=== PATIENT | male | born 1940 | race Caucasian/White ===

== ENCOUNTER 2018-05-02 16:11 | Inpatient (IN) ==
[2018-05-02] MEDS ORDERED: Sod Chloride 0.9% Inj 1,000 ML IV.SIG ONE (17:10)
--- NOTE | 2018-05-02 17:15 | ED ---
HPI General Chief complaint: Weakness Stated complaint: Diarrhea/weakness x 5 days Source: patient and family Mode of arrival: ambulatory Limitations: no limitations History of Present Illness HPI Narrative: 78-year-old man brought in for 2 weeks of increasing generalized weakness and fatigue. He had a dental extraction procedure performed about 2 weeks ago and has not recovered well since that time. Prior to the dental extractions, he was on amoxicillin for 7 days. He also has had loose stools about 3 times a day each day over the course of these 2 weeks. He was previously capable of independent ambulation but has required the use of a cane and now more recently a walker to get around due to the weakness. He denies any falls and has not had a syncopal event. Related Data Home Medications Medication Instructions Recorded Confirmed amiodarone 200 mg PO BID 05/02/18 05/02/18 aspirin [Aspir-Low] 81 mg PO DAILY 05/02/18 05/02/18 atorvastatin 80 mg PO HS 05/02/18 05/02/18 buspirone 10 mg PO BID 05/02/18 05/02/18 clopidogrel 75 mg PO DAILY 05/02/18 05/02/18 ipratropium-albuterol 3 ml INHALATION Q6-8H PRN 05/02/18 05/02/18 levothyroxine 25 mcg PO DAILY 05/02/18 05/02/18 losartan 100 mg PO HS 05/02/18 05/02/18 metoprolol tartrate 25 mg PO DAILY 05/02/18 05/02/18 Allergies Allergy/AdvReac Type Severity Reaction Status Date / Time codeine Allergy Intermediate Hallucinati Verified 05/02/18 18:56 ons anesthetic Allergy Severe Hallucinati Uncoded 05/02/18 18:56 ons Review of Systems ROS: all other systems reviewed are negative [facility] Medical History Medical History COPD (chronic obstructive pulmonary disease) (Acute) High cholesterol (Acute) Hypertension (Acute) Hypothyroid (Acute) Presence of combination internal cardiac defibrillator (ICD) and pacemaker ( Acute) Social History Social History Smoking Status: Never smoker How Often Do You Have a Drink Containing Alcohol: Never Recent Travel in [facility] within the Last 8 Weeks: No Recent Out of Country Travel within the Last 8 Weeks: No Immunization History Tetanus Immunization: Unsure Hx Influenza Vaccine This Season: Yes Exam Narrative Exam Narrative: GENERAL: Chronically ill-appearing but nontoxic 78-year-old man lying on exam stretcher. His adult daughter seated in chair at bedside. SKIN: Focused skin assessment warm/dry. No skin lesions or rash observed. No decubitus ulcer observed. HEAD: Atraumatic. Normocephalic. EYES: Pupils equal and round. No scleral icterus. No injection or drainage. ENT: No nasal bleeding or discharge. Mucous membranes pink and dry. Edentulous. NECK: Trachea midline. No JVD. CARDIOVASCULAR: Regular rate and rhythm. No murmur appreciated. RESPIRATORY: No accessory muscle use. Clear to auscultation. Breath sounds equal bilaterally. GASTROINTESTINAL: Abdomen soft, non-tender, nondistended. MUSCULOSKELETAL: No obvious deformities. No clubbing. No cyanosis. No edema. NEUROLOGICAL: Awake and alert. No obvious cranial nerve deficits. Motor grossly within normal limits. Normal speech. 5 out of 5 motor strength all 4 extremities. Sensation to light touch intact in all 4 limbs. PSYCHIATRIC: Appropriate mood and affect; insight and judgment normal. Course Consultations Consultation #1: Both with Dr. WILLS regarding the patient's case and my concern for pneumonia and possible C. difficile colitis. I expressed to her my concerns that he would be a poor outpatient candidate. She will admit the patient for further care. Initial Documented Vital Signs Temperature 97.7 F 05/02/18 16:24 Pulse Rate 67 05/02/18 16:24 Respiratory Rate 20 05/02/18 16:24 Blood Pressure 100/50 L 05/02/18 16:24 Pulse Oximetry 92 L 05/02/18 16:24 Last Documented Vital Signs Temperature 97.7 F 05/02/18 16:24 Pulse Rate 67 05/02/18 18:20 Respiratory Rate 20 05/02/18 18:20 Blood Pressure 109/47 L 05/02/18 18:20 Pulse Oximetry 96 05/02/18 18:20 Medical Decision Making MDM Narrative Medical decision making narrative: 78-year-old man who is brought to ED for evaluation of 2 weeks of progressive generalized weakness. No focal weakness to suggest stroke. Also found to have new oxygen demand. He denies chest pain but does endorse abdominal pains. He also had diarrhea after starting antibiotics for dental procedure. Differential is broad but does contain C. difficile colitis, chronic mesentery ischemia, renal failure, heart failure, partial small bowel obstruction, colonic obstruction, electrolyte disorder, urine infection. Broad workup including advanced imaging of head chest abdomen and pelvis. Due to elevated creatinine, contrasted studies could not be obtained. Medical Screen Exam Complete: Yes Emergency Medical Condition: Yes Medical Records Medical records reviewed: Yes I reviewed the patient's medical records. Lab Data Lab results narrative: Significant leukocytosis and thrombocytosis with anemia. Mild hyperkalemia, mild hyponatremia, elevated creatinine in setting of single kidney. Elevated glucose likely related to inflammatory process Result diagrams: 05/02/18 17:10 05/02/18 17:10 Lab Results 05/02/18 05/02/18 05/02/18 Range/Units 17:10 17:10 17:10 CBC w Diff WBC (4.0-11.0) th/mm3 RBC (4.50-5.90) mil/mm3 Hgb (13.0-17.0) gm/dL Hct (39.0-51.0) % MCV (80.0-100.0) fL MCH (27.0-34.0) pg MCHC (32.0-36.0) % RDW (11.6-17.2) % Plt Count (150-450) th/mm3 MPV (7.0-11.0) fL Neut % (Auto) (16.0-70.0) % Lymph % (Auto) (9.0-44.0) % [place] % (Auto) (0.0-8.0) % Eos % (Auto) (0.0-4.0) % Baso % (Auto) (0.0-2.0) % Neut # (Auto) (1.8-7.7) th/mm3 Lymph # (Auto) (1.0-4.8) th/mm3 [place] # (Auto) (0.0-0.9) th/mm3 Eos # (Auto) (0.0-0.4) th/mm3 Baso # (Auto) (0.0-0.2) th/mm3 WBC Differential Differential Comment PT 11.2 (9.8-11.6) sec INR 1.1 Ratio Sodium (136-145) meq/L Potassium (3.5-5.1) meq/L Chloride (98-107) meq/L Carbon Dioxide (21.0-32.0) meq/L Anion Gap (5-15) meq/L BUN (7-18) mg/dL Creatinine (0.60-1.30) mg/dL Estimated GFR (>89) mL/min Random Glucose (74-106) mg/dL Lactic Acid 0.8 (0.4-2.0) mmol/L Calcium (8.5-10.1) mg/dL Magnesium 2.1 (1.5-2.5) mg/dL Total Bilirubin (0.2-1.0) mg/dL AST (15-37) U/L ALT (12-78) U/L Alkaline Phosphatase (45-117) U/L Troponin I Less than 0.02 L (0.02-0.05) ng/mL Total Protein (6.4-8.2) g/dL Albumin (3.4-5.0) g/dL Lipase (73-393) U/L TSH 17.900 H (0.358-3.740) uIU/mL 05/02/18 05/02/18 Range/Units 17:10 17:10 CBC w Diff Auto diff final WBC 20.1 H (4.0-11.0) th/mm3 RBC 4.15 L (4.50-5.90) mil/mm3 Hgb 10.2 L (13.0-17.0) gm/dL Hct 31.3 L (39.0-51.0) % MCV 75.4 L (80.0-100.0) fL MCH 24.5 L (27.0-34.0) pg MCHC 32.5 (32.0-36.0) % RDW 16.5 (11.6-17.2) % Plt Count 691 H (150-450) th/mm3 MPV 7.8 (7.0-11.0) fL Neut % (Auto) 88.1 H (16.0-70.0) % Lymph % (Auto) 3.7 L (9.0-44.0) % [place] % (Auto) 6.7 (0.0-8.0) % Eos % (Auto) 1.4 (0.0-4.0) % Baso % (Auto) 0.1 (0.0-2.0) % Neut # (Auto) 17.8 H (1.8-7.7) th/mm3 Lymph # (Auto) 0.7 L (1.0-4.8) th/mm3 [place] # (Auto) 1.3 H (0.0-0.9) th/mm3 Eos # (Auto) 0.3 (0.0-0.4) th/mm3 Baso # (Auto) 0.0 (0.0-0.2) th/mm3 WBC Differential . Differential Comment . PT (9.8-11.6) sec INR Ratio Sodium 130 L (136-145) meq/L Potassium 5.4 H (3.5-5.1) meq/L Chloride 100 (98-107) meq/L Carbon Dioxide 19.6 L (21.0-32.0) meq/L Anion Gap 10 (5-15) meq/L BUN 47 H (7-18) mg/dL Creatinine 2.00 H (0.60-1.30) mg/dL Estimated GFR 33 L (>89) mL/min Random Glucose 120 H (74-106) mg/dL Lactic Acid (0.4-2.0) mmol/L Calcium 8.8 (8.5-10.1) mg/dL Magnesium (1.5-2.5) mg/dL Total Bilirubin 0.3 (0.2-1.0) mg/dL AST 70 H (15-37) U/L ALT 63 (12-78) U/L Alkaline Phosphatase 117 (45-117) U/L Troponin I (0.02-0.05) ng/mL Total Protein 7.9 (6.4-8.2) g/dL Albumin 1.9 L (3.4-5.0) g/dL Lipase 139 (73-393) U/L TSH (0.358-3.740) uIU/mL Imaging Data Radiologist's impression: Abdomen/Pelvis CT 05/02/18 17:13 CONCLUSION: 1. Nonspecific, nonobstructive bowel gas pattern which may represent an ileus or gastroenteritis. There is mild to moderate diverticulosis with no definite focal inflammatory change. 2. Degenerative changes in both hips. 3. Consolidation left lower lobe with small effusion. The findings could indicate pneumonia. Chest CT 05/02/18 17:13 CONCLUSION: 1. Multiple masslike areas of consolidative opacity in both lungs as well as a large dense area of consolidation with air bronchograms in the left upper lobe. The findings are of concern for primary tumor and metastatic disease. Multifocal pneumonia could have a similar appearance. 2. Mild pretracheal adenopathy. 3. Coronary artery calcifications. Head CT 05/02/18 17:14 CONCLUSION: 1. Stable appearance with no acute hemorrhage, mass or evidence of acute infarction. . ECG Data Attestation: I personally reviewed and interpreted this ECG as follows: Interpretation: Sinus rhythm, interventricular conduction delay, rate 62 bpm, OR interval 238 ms representing first-degree AV block, QRS duration 151 ms which is wide, QTc interval 527 which is prolonged, rounding of ST segment in V2 which is isolated, Q waves in inferior leads, no STEMI. Discharge Plan Discharge Disposition Patient Disposition: 30 Still Patient Discharge Condition Condition: Fair Discharge Details Diagnosis: CAP (community acquired pneumonia), Diarrhea, Hypothyroid, Single kidney, Generalized weakness Physicians Team ED Provider: Walter Moore Primary Care Provider: UNKNOWN, Attending Provider: Mary Wills Other Providers: Estevan Harris Status ED Status: Admitted Patient
[2018-05-02 17:41] LABS: Chloride 100 meq/L (98-107); Potassium 5.4 meq/L (3.5-5.1); Sodium 130 meq/L (136-145)
[2018-05-02 17:44] LABS: Magnesium 2.1 mg/dL (1.5-2.5)
[2018-05-02 17:45] LABS: Calcium 8.8 mg/dL (8.5-10.1); INR 1.1 Ratio; Prothrombin Time 11.2 sec (9.8-11.6)
[2018-05-02 17:46] LABS: Albumin 1.9 g/dL (3.4-5.0); Anion Gap 10 meq/L (5-15); Blood Urea Nitrogen 47 mg/dL (7-18); Carbon Dioxide 19.6 meq/L (21.0-32.0); Glucose,Random 120 mg/dL (74-106); Lipase 139 U/L (73-393)
[2018-05-02 17:48] LABS: Alanine Aminotransferase 63 U/L (12-78); Aspartate Aminotransferase 70 U/L (15-37)
[2018-05-02 17:49] LABS: Glomerular Filtration Rate 33 mL/min (>89)
[2018-05-02 17:50] LABS: Total Protein 7.9 g/dL (6.4-8.2)
[2018-05-02 17:51] LABS: Alkaline Phosphatase 117 U/L (45-117)
[2018-05-02 18:25] LABS: Baso % (Auto) 0.1 % (0.0-2.0); Eos # (Auto) 0.3 th/mm3 (0.0-0.4); Eos % (Auto) 1.4 % (0.0-4.0); Hematocrit 31.3 % (39.0-51.0); Hemoglobin 10.2 gm/dL (13.0-17.0); Lymph # (Auto) 0.7 th/mm3 (1.0-4.8); Lymph % (Auto) 3.7 % (9.0-44.0); Mean Corpuscular HGB Conc 32.5 % (32.0-36.0); Mean Corpuscular Hemoglobin 24.5 pg (27.0-34.0); Mean Corpuscular Volume 75.4 fL (80.0-100.0); Mean Platelet Volume 7.8 fL (7.0-11.0); Mono # (Auto) 1.3 th/mm3 (0.0-0.9); Mono % (Auto) 6.7 % (0.0-8.0); Neut # (Auto) 17.8 th/mm3 (1.8-7.7); Neut % (Auto) 88.1 % (16.0-70.0); Platelet Count 691 th/mm3 (150-450); Red Blood Count 4.15 mil/mm3 (4.50-5.90); Red Cell Distribution Width 16.5 % (11.6-17.2); White Blood Count 20.1 th/mm3 (4.0-11.0)
--- NOTE | 2018-05-02 18:39 | CT ---
EXAM DATE: 05/02/2018 6:36 PM EDT AGE/SEX: 78 years / Male INDICATIONS: Generalized weakness. CLINICAL DATA: This is the patient's initial encounter. Patient reports that signs and symptoms have been present for 1 day and indicates a pain score of 0/10. MEDICAL/SURGICAL HISTORY: Cardiovascular disease. Chronic obstructive pulmonary disease. Hypothyr oidism. Hypertension. Pacemaker. Defibrillator. RADIATION DOSE: 52.65 CTDI (mGy) COMPARISON: [facility], CT BRAIN W/O CONTRAST, 08/17/2016. . TECHNIQUE: CT of the head without contrast. Using automated exposure control and adjustment of the mA and/or kV according to patient size, radiation dose was kept as low as reasonably achievable to ob tain optimal diagnostic quality images. DICOM format image data is available electronically for revi ew and comparison. FINDINGS: Cerebrum: The ventricles are normal for age with diffuse moderate atrophic change. No evidence of mi dline shift, mass lesion, hemorrhage or acute infarction. No extraaxial fluid collections are seen. Posterior Fossa: The cerebellum and brainstem are intact. The 4th ventricle is midline. The cerebe llopontine angle is unremarkable. Extracranial: The visualized portion of the orbits is intact. Skull: The calvaria is intact. No evidence of skull fracture. CONCLUSION: 1. Stable appearance with no acute hemorrhage, mass or evidence of acute infarction. . Electronically signed by: Larry Johnson MD 05/02/2018 6:38 PM EDT
--- NOTE | 2018-05-02 18:46 | CT ---
EXAM DATE: 05/02/2018 6:39 PM EDT AGE/SEX: 78 years / Male INDICATIONS: Short of breath. CLINICAL DATA: This is the patient's initial encounter. Patient reports that signs and symptoms have been present for 1 day and indicates a pain score of 0/10. MEDICAL/SURGICAL HISTORY: Cardiovascular disease. Chronic obstructive pulmonary disease. Hypothyr oidism. Hypertension. Pacemaker. Defibrillator. RADIATION DOSE: 14.50 CTDI (mGy) ; Combined studies COMPARISON: No prior exams available for comparison. TECHNIQUE: Multiple contiguous axial images were obtained through the chest without contrast. Image s were obtained in suspended respiration using multiple row detector helical technique. Using automa kirsten exposure control and adjustment of the mA and/or kV according to patient size, radiation dose was kept as low as reasonably achievable to obtain optimal diagnostic quality images. DICOM format imag e data is available electronically for review and comparison. FINDINGS: Lungs: There is a focal masslike area of consolidation in the right upper lobe measuring up to appro ximately 3.2 x 2.3 cm. There is a dense area of consolidation with air bronchograms involving a large portion of the left upper lobe. There is a smaller 11 mm mass like opacity in the right upper lobe a nd multiple masslike opacities in the left upper lobe which are pleural-based. These measure up to 2. 2 cm in diameter. Mediastinum: There are prominent pretracheal lymph nodes measuring up to 1.8 cm. There is no distinc t hilar adenopathy on this noncontrast study. There is no pericardial effusion. A transvenous pacer i s present. Coronary artery calcifications are present. Pleurae: No evidence of focal thickening or pleural effusion. Axillae: Unremarkable. Bony Structures: Osteopenia, degenerative change and mild scoliosis are present. Miscellaneous: The examination was extended to include the upper abdomen, and both adrenal glands ar e normal in size and configuration. CONCLUSION: 1. Multiple masslike areas of consolidative opacity in both lungs as well as a large dense area of c onsolidation with air bronchograms in the left upper lobe. The findings are of concern for primary tu mor and metastatic disease. Multifocal pneumonia could have a similar appearance. 2. Mild pretracheal adenopathy. 3. Coronary artery calcifications. Electronically signed by: Larry Johnson MD 05/02/2018 6:45 PM EDT
[2018-05-02] MEDS ORDERED: Azithromycin Inj 500 MG in Sodium Chlor 0.9% Inj 250 ML IV.SIG ONE (18:47)
--- NOTE | 2018-05-02 19:09 | CT ---
EXAM DATE: 05/02/2018 6:40 PM EDT AGE/SEX: 78 years / Male INDICATIONS: Abdominal pain and diarrhea. CLINICAL DATA: This is the patient's initial encounter. Patient reports that signs and symptoms have been present for 3 weeks and indicates a pain score of 8/10. MEDICAL/SURGICAL HISTORY: Cardiovascular disease. Chronic obstructive pulmonary disease. Hypo thyroidism. Hypertension. Pacemaker. Defibrillator. RADIATION DOSE: 14.50 CTDI (mGy) ; Combined studies COMPARISON: [facility] [place], CT ABDOMEN & PELVIS W/O CONTRAST, 11/03/2015. . TECHNIQUE: Multiple contiguous axial images were obtained through the abdomen. Images were obtained using multiple row detector helical technique. Using automated exposure control and adjustment of the mA and/or kV according to patient size, radiation dose was kept as low as reasonably achievable to o btain optimal diagnostic quality images. DICOM format image data is available electronically for rev iew and comparison. FINDINGS: Lower Lungs: There is mild consolidation in the left lower lobe. There is minimal effusion. Transveno us pacer is noted. Liver: The liver has a homogeneous density without space-occupying lesion. There is no dilation of th e biliary tree. Spleen: Homogeneous density without enlargement. Pancreas: Unremarkable without mass or calcification. Kidneys: Normal in size and shape. No evidence of mass or hydronephrosis. Adrenal Glands: Unremarkable. Aorta: The aorta and proximal iliac vessels are grossly unremarkable without aneurysmal dilation. Bowel/Mesentery: No oral contrast was given limiting the sensitivity of the exam. There are scattere d diverticuli. There are multiple loops of nondilated air-containing small bowel with several small a ir-fluid levels. No free air or fluid. There is motion artifact limiting visualization as well. Abdominal Wall: Intact. Retroperitoneum: No evidence of adenopathy in the retrocrural, para-aortic, or deep pelvic regions. Bladder: Contours are smooth. Reproductive Organs: No abnormal masses or calcifications seen. Inguinal: The inguinal region is unremarkable without evidence of adenopathy. Bony Structures: Osteopenia, scoliosis and degenerative changes are present. General changes are not ed in both hips with sclerosis in the heads. CONCLUSION: 1. Nonspecific, nonobstructive bowel gas pattern which may represent an ileus or gastroenteritis. Th ere is mild to moderate diverticulosis with no definite focal inflammatory change. 2. Degenerative changes in both hips. 3. Consolidation left lower lobe with small effusion. The findings could indicate pneumonia. Electronically signed by: Larry Johnson MD 05/02/2018 7:08 PM EDT
[2018-05-02] MEDS ORDERED: Vancomycin Consult Pharmacy OTHER PRN (19:25)
[2018-05-02] MEDS ORDERED: Bisacodyl 10 MG Supp RECTAL PRN (19:25)
[2018-05-02] MEDS ORDERED: Acetaminophen 325 MG Tablet PO PRN (19:25)
[2018-05-02] MEDS: Sod Chloride 0.9% Inj 1,000 ML IV.CONT SCH (19:30)
[2018-05-02 21:24] LABS: Bilirubin,Urine Negative (Negative); Clarity,Urine Clear (Clear); Color,Urine Yellow (Yellw/Straw); Glucose,Urine (UA) Negative (Negative); Leukocyte Esterase,Urine Negative (Negative); Nitrite,Urine Negative (Negative); PH,Urine 5.5 (5.0-8.5); Urobilinogen,Urine 0.2 mg/dL (Less than 2)
[2018-05-02 21:35] LABS: RBC,Urine 0-3 /hpf (0-3); Squamous Epithelial Cell,Urine 0-5 /hpf (0-5); WBC,Urine 0-5 /hpf (0-5)
[2018-05-02] MEDS: Vancomycin Inj 850 MG in Sodium Chlor 0.9% Inj 250 ML IV.SIG SCH (22:00)
[2018-05-02] MEDS: Amiodarone 200 MG Tablet PO SCH (22:00)
[2018-05-03] MEDS: Senna/Docusate Sodium 8.6/50 MG Tablet PO SCH ×3 (01:40→22:01)
[2018-05-03] MEDS: Sod Chloride 0.9% Inj 1,000 ML IV.CONT SCH ×2 (05:35→18:46)
[2018-05-03 06:13] LABS: Baso % (Auto) 0.1 % (0.0-2.0); Chloride 106 meq/L (98-107); Eos # (Auto) 0.5 th/mm3 (0.0-0.4); Eos % (Auto) 3.3 % (0.0-4.0); Hematocrit 25.1 % (39.0-51.0); Hemoglobin 8.2 gm/dL (13.0-17.0); Lymph # (Auto) 0.8 th/mm3 (1.0-4.8); Lymph % (Auto) 5.4 % (9.0-44.0); Mean Corpuscular HGB Conc 32.6 % (32.0-36.0); Mean Corpuscular Hemoglobin 24.7 pg (27.0-34.0); Mean Corpuscular Volume 75.9 fL (80.0-100.0); Mean Platelet Volume 7.3 fL (7.0-11.0); Mono % (Auto) 6.9 % (0.0-8.0); Neut # (Auto) 12.6 th/mm3 (1.8-7.7); Neut % (Auto) 84.3 % (16.0-70.0); Platelet Count 520 th/mm3 (150-450); Potassium 4.8 meq/L (3.5-5.1); Red Blood Count 3.31 mil/mm3 (4.50-5.90); Red Cell Distribution Width 16.5 % (11.6-17.2); Sodium 134 meq/L (136-145); White Blood Count 14.9 th/mm3 (4.0-11.0)
[2018-05-03 06:29] LABS: Alanine Aminotransferase 46 U/L (12-78); Albumin 1.4 g/dL (3.4-5.0); Alkaline Phosphatase 83 U/L (45-117); Anion Gap 8 meq/L (5-15); Aspartate Aminotransferase 52 U/L (15-37); Blood Urea Nitrogen 43 mg/dL (7-18); Calcium 7.7 mg/dL (8.5-10.1); Carbon Dioxide 19.9 meq/L (21.0-32.0); Glomerular Filtration Rate 45 mL/min (>89); Glucose,Random 105 mg/dL (74-106); Total Protein 5.8 g/dL (6.4-8.2)
[2018-05-03] MEDS: Piperacil/Tazo 4.5 GM Premix 4.5 GM/100 ML BAG IV.SIG SCH ×2 (06:34)
[2018-05-03 06:44] LABS: Rouleaux Present
--- NOTE | 2018-05-03 09:12 | P.CON ---
History of Present Illness Service: Hematology/oncology Consult date: 05/03/18 Primary Care Provider: Dr. Luis Starr ([facility]). Family Provider: UNKNOWN Chief Complaint: Weakness, chills, fevers, cough. History of Present Illness: Mr. Duarte is a very pleasant 78-year-old man who presented to [facility] ER on 05/02/2018 with complaints of unintended weight loss, fatigue, cough, chills, sweats and unintended weight loss over the past 1 month. The patient reports having developed multiple tooth and gum infections over the past 1 month. He was placed on oral antibiotics for management of the infection and then underwent approximately 1-1/2 weeks ago extraction of all of his maxillary teeth. He remained on oral antibiotics. The patient reports having developed diarrhea about a week ago and progressively becoming weaker. He reports his appetite had been poor, he lost up to 10 or 15 pounds and the daughter began to notice the patient complaining of lightheadedness, difficulty balancing, he was noticeably cold and had low blood pressure on home blood pressure monitors. Additional symptoms include cough, difficulty swallowing due to choking and phlegm production. Patient was brought into the emergency department here at [facility] in [place] where he underwent CT scanning of the thorax which revealed dense consolidative changes involving both the right and the left lung, there were enlarged mediastinal lymph nodes also appreciated. Findings were concerning for either multifocal pneumonia or lung malignancy. The hematology/oncology service is been asked to see him for further workup and management. Review of Systems Constitutional: Reports anorexia, Reports chills, Reports fatigue, Reports fever (s), Reports lack of energy, Reports malaise, Reports weakness, Reports weight loss Eyes: Denies blind spots, Denies blurry vision, Denies change in vision Ears, Nose, Mouth, and Throat: Reports bleeding gums, Denies abnormal hearing Comments: Multiple teeth extracted. Cardiovascular: Reports shortness of breath with activity, Denies chest pain Respiratory: Reports change in phlegm color, Reports chest congestion, Reports cough, Reports shortness of breath, Reports shortness of breath with activity, Denies coughing up blood, Denies wheezing Gastrointestinal: Reports loose stools, Denies abdominal pain, Denies belching, Denies black, tarry stools, Denies nausea, Denies vomiting blood Genitourinary: Denies blood in urine Musculoskeletal: Denies abnormal walking Skin/Breast: Denies itching, Denies lesions, Denies wounds Neurologic: Reports unsteadiness, Reports weakness, Denies abnormal hearing Psychiatric: Denies abnormal sleep pattern, Denies anxiety Endocrine: Reports cold intolerance, Reports heat intolerance Hematologic/Lymphatic: Reports easy bruising, Denies easy bleeding Allergic/Immunologic: Denies GI upset with certain foods PMFSH - History History Provided By: Patient - Medical History Medical History: Medical History (Last Updated 05/03/18 @ 09:03 by Toby Laura MD) Coronary artery disease Enlarged prostate History of common carotid artery stent placement Peripheral arterial disease Tobacco abuse COPD (chronic obstructive pulmonary disease) High cholesterol Hypertension Hypothyroid Presence of combination internal cardiac defibrillator (ICD) and pacemaker - Surgical History Surgical History: Surgical History (Last Updated 05/03/18 @ 09:03 by Toby Laura MD) History of nephrectomy - Family History Family History: Family History (Last Updated 05/03/18 @ 09:09 by Toby Laura MD) Father Myocardial infarction - Social History I have reviewed the patient's Social History: Yes - Tobacco History Second Hand Smoke Exposure: No Tobacco Use In Past 30 Days: No Smoking Status: Former smoker Tobacco Type: Cigarettes, Cigars Packs Per Day: 1 Years Smoked: 60 Smoking End Date: 10/31/2017 - Alcohol History How Often Do You Have a Drink Containing Alcohol: Never - Substance Use History Substance History: No History of Abuse - Travel History Recent Travel in the [place] Within the Last 8 Weeks: No Recent Travel Out of the Country Within the Last 8 Weeks: No - Immunization History Tetanus Immunization: Unsure Hx Influenza Vaccine This Season: Yes Medications and Allergies Active Medications: Active Medications Acetaminophen (Tylenol) 650 mg PO Q4H PRN PRN Reason: Temp > 100.4 Al Hydroxide/Mg Hydroxide (Milk Of Magnesia Liq) 30 ml PO Q12H PRN PRN Reason: Mild Constipation Amiodarone HCl (Cordarone) 200 mg PO BID [facility] Last Admin: 05/02/18 22:00 Dose: 200 mg Aspirin (Ecotrin) 81 mg PO DAILY [facility] Atorvastatin Calcium (Lipitor) 80 mg PO HS [facility] Last Admin: 05/02/18 22:00 Dose: 80 mg Bisacodyl (Dulcolax Supp) 10 mg RECTAL DAILY PRN PRN Reason: SEVERE CONSITIPATION Buspirone HCl (Buspar) 10 mg PO BID [facility] Last Admin: 05/02/18 22:00 Dose: 10 mg Clopidogrel Bisulfate (Plavix) 75 mg PO DAILY [facility] Sodium Chloride (Ns Inj) 1,000 mls @ 100 mls/hr IV.CONT .Q10H [facility] Last Admin: 05/03/18 05:35 Dose: 100 mls/hr Vancomycin HCl 850 mg/ Sodium (Chloride) 258.5 mls @ 250 mls/hr IV.SIG Q36H [facility] Last Infusion: 05/03/18 04:59 Dose: Infused Piperacillin/Tazobactam/Dextrose (Zosyn 3.375 Gm Premix) 50 mls @ 200 mls/hr IV.SIG Q6H [facility] Lactulose (Lactulose Liq) 30 ml PO DAILY PRN PRN Reason: SEVERE CONSITIPATION Metoprolol Tartrate (Lopressor) 25 mg PO DAILY [facility] Miscellaneous Information ([facility] Ordered Lab Info) 1 each OTHER ONCE ONE Stop: 05/07/18 09:46 Ondansetron HCl (Zofran Inj) 4 mg IV.PUSH Q6H PRN PRN Reason: NAUSEA OR VOMITING Pharmacy Profile Note (Vancomycin Consult Pharmacy) 1 each OTHER UNSCH PRN PRN Reason: Pharmacy to dose Senna/Docusate Sodium (Anca-Colace) 1 tab PO BID [facility] Last Admin: 05/03/18 01:40 Dose: Not Given Sennosides (Senokot) 17.2 mg PO Q12H PRN PRN Reason: Moderate Constipation Sodium Chloride (Ns Flush) 2 ml IV.FLUSH PRN PRN PRN Reason: FLUSH AFTER USING IV ACCESS Allergies Allergy/AdvReac Type Severity Reaction Status Date / Time codeine Allergy Intermediate Hallucinati Verified 05/02/18 18:56 ons anesthetic Allergy Severe Hallucinati Uncoded 05/02/18 18:56 ons Home Medications Medication Instructions Recorded Confirmed Type amiodarone 200 mg PO BID 05/02/18 05/02/18 History aspirin [Aspir-Low] 81 mg PO DAILY 05/02/18 05/02/18 History atorvastatin 80 mg PO HS 05/02/18 05/02/18 History buspirone 10 mg PO BID 05/02/18 05/02/18 History clopidogrel 75 mg PO DAILY 05/02/18 05/02/18 History ipratropium-albuterol 3 ml INHALATION Q6-8H PRN 05/02/18 05/02/18 History levothyroxine 25 mcg PO DAILY 05/02/18 05/02/18 History losartan 100 mg PO HS 05/02/18 05/02/18 History metoprolol tartrate 25 mg PO DAILY 05/02/18 05/02/18 History Physical Exam Vital signs: Vital Signs 05/02/18 16:24 05/02/18 17:15 05/02/18 17:40 Temperature 97.7 F Pulse Rate 67 65 64 Respiratory Rate 20 18 Blood Pressure 100/50 L 112/47 L Pulse Oximetry 92 L 95 97 05/02/18 17:54 05/02/18 18:20 05/02/18 21:30 Temperature Pulse Rate 65 67 Respiratory Rate 20 20 Blood Pressure 106/44 L 109/47 L Pulse Oximetry 100 96 96 05/02/18 22:37 05/03/18 00:00 05/03/18 08:00 Temperature 96.9 F L 97.7 F 97.4 F L Pulse Rate 63 64 69 Respiratory Rate 18 18 19 Blood Pressure 114/52 L 113/62 111/52 L Pulse Oximetry 96 94 L 96 Intake & Output 05/02/18 05/03/18 05/03/18 18:59 06:59 18:59 Intake Total 1000 / 1000 1708.5 / 1708.5 340 / 340 Output Total 300 / 300 Balance 1000 / 1000 1408.5 / 1408.5 340 / 340 Weight 50.4 kg 50.8 kg Intake: IV 1000 / 1000 1708.5 / 1708.5 100 / 100 NS Inj 1,000 ML @ 100 mls/hr IV 1000 / 1000 .CONT .Q10H [facility] Rx#:[id number] Azithromycin Inj 500 MG In NS 250 / 250 Inj 250 ML @ 250 mls/hr IV.SIG ONCE ONE Rx#:[id number] Zosyn 4.5 GM Premix 4.5 gm In 100 / 100 100 / 100 100 ml @ 200 mls/hr IV.SIG Q6H [facility] Rx#:[id number] NS Inj 1,000 ML @ Wide Open IV. 1000 / 1000 SIG BOLUS ONE Rx#:[id number] Vancomycin Inj 850 MG In NS Inj 258.5 / 258.5 250 ML @ 250 mls/hr IV.SIG Q36H [facility] Rx#:[id number] Rocephin Inj 1,000 MG In NS Inj 100 / 100 100 ML @ 200 mls/hr IV.SIG ONCE ONE Rx#:[id number] Oral 240 / 240 Output: Urine 300 / 300 Other: Weight On Admission 51.4 kg Narrative: Elderly male, sitting up in bed, appears to be near cachectic. Not acutely distressed. - Constitutional no acute distress, thin, chronically ill appearing, cooperative - Routine HEENT Exam Head: Present: normocephalic Eye: Present: EOMI, PERRL ENT: Present: mucous membranes moist - Routine Neck Exam Present: supple. Absent: lymphadenopathy, thyromegaly - Routine Respiratory Exam Present: CTA bilaterally. Absent: accessory muscle use, rales, respiratory distress, rhonchi, stridor, wheezes, crackles, distant breath sounds, diminished air movement - Routine Cardiovascular Exam Present: RRR, S1, S2. Absent: murmur, gallop, rubs, S3, S4 - Routine Abdominal Exam Present: soft. Absent: normoactive bowel sounds, tenderness, distended, rebound , guarding - Routine Extremities Exam Absent: cyanosis, clubbing, edema - Routine Skin Exam Present: intact Comments: Bruising noted on the upper extremities. - Routine Neurological Exam Present: alert, oriented X3. Absent: CN II-XII intact, sensory deficit - Detailed Neurological Exam: Coma Scale Eye Opening: Spontaneous - Routine Psychiatric Exam Present: normal affect Assessment and Plan - Plan 78-year-old man presented to hospital with constitutional symptoms of progressive weakness, fatigue, chills, cough, phlegm production, unintended weight loss. He also reports symptoms of diarrhea, he had been on oral antibiotics for management of tooth infections over the past 3 weeks. One week ago he underwent multiple tooth extractions; fact removal of all of his maxillary teeth. He was brought into the emergency department by his daughter because he was weak , had difficulty balancing and was noted to have low blood pressure. The patient's daughter was concerned he may be getting "septic". Upon presentation the emergency department CT imaging of the thorax revealed multiple dense consolidative changes involving the right and the left lung, pneumonia was suspected however underlying malignancy could not be ruled out. Hematology/oncology service was asked to see the patient for further workup and management of possible underlying malignant diagnosis. Recommendations: 1. Dense consolidative parenchymal densities involving bilateral lungs: Primary consideration would be inflammatory changes, underlying malignancy cannot at this time be ruled out. I would advise the patient be treated with broad-spectrum antibiotics, corticosteroids, nebulizers. I would advise a pulmonology evaluation for possible endobronchial evaluation, bronchoalveolar lavage and possible biopsies. I did talk to the patient about the possible underlying diagnosis of malignancy. He tells me very frankly and in the presence of his daughter that if he has a diagnosis of underlying lung cancer he does not wish to pursue any disease directed therapeutic interventions. He made that very clear, he tells me he has been gradually weakening over the past few years, he lost his 2 years ago and does not wish to suffer. I would however be happy to see him in the outpatient setting after he has undergone a preliminary pulmonary workup. Discussed Condition With: Inpatient hospitalist team. The patient, his daughter.
--- NOTE | 2018-05-03 10:47 | P.HP ---
History of Present Illness Primary Care Physician: UNKNOWN Chief Complaint: Weakness, chills, fevers, cough. History of Present Illness: 78-year-old male with known history of hypertension, hyperlipidemia, coronary disease, history of myocardial infarction, chronic obstructive pulmonary disease, chronic tobacco use, history of ventricular fibrillation, obstructive sleep apnea who presented the hospital because of progressive weakness, cough, congestion. Patient states that his symptoms started over 2 weeks ago in which he started having increased fatigue, lethargy. Patient had been dental issues and the physician thought that it may be related to that. The patient had dental work done approximately 10 days ago thinking that would resolve his constitutional symptoms. Patient was started on antibiotics and shortly after that he started developing diarrhea illness. Patient did take Imodium A-D with resolution of diarrhea for 3 days but then it came back. Patient started developing cough, congestion, phlegm production. He had continued weakness and lethargy. Because of his continued symptoms, he came to the emergency department for evaluation. Patient was found to have multiple findings to include sepsis, rather significant masslike consolidation of right lung as well as multiple other consolidations bilaterally. Is recommended patient be admitted for further evaluation and management. Patient has had 2 week history of weakness, fatigue, lethargy. Patient is weight loss of 15 pounds in the last 2 weeks. Patient had decreased appetite. Inpatient Certification: I certify that the inpatient services were ordered in accordance with Medicare regulations governing the order. This includes certification that hospital inpatient services are reasonable and necessary and in the case of services not specified as inpatient-only under 42 CFR 419.22(n), that they are appropriately provided as inpatient services in accordance to with the 2-midnight benchmark under 43 CFR 412.3(e) Estimated Total Length of Stay (Days): 2 Plans for Post Hospital Care: Not yet determined Review of Systems All other systems reviewed negative except as stated in HPI Constitutional: Reports chills, Reports fatigue, Reports lack of energy, Reports weight loss Respiratory: Reports cough Neurologic: Reports weakness PMFSH - History History Provided By: Patient - Medical History Medical History: Medical History (Last Updated 05/03/18 @ 10:28 by BARRON Cotter) Ankylosing spondylitis Coronary artery disease Enlarged prostate History of common carotid artery stent placement History of left common carotid artery stent placement History of unilateral nephrectomy History of ventricular fibrillation Obstructive sleep apnea Peripheral arterial disease Tobacco abuse COPD (chronic obstructive pulmonary disease) High cholesterol Hypertension Hypothyroid - Surgical History Surgical History: Surgical History (Last Updated 05/03/18 @ 10:27 by BARRON Cotter) History of cardiac catheterization History of coronary artery stent placement History of nephrectomy History of sinus surgery Presence of combination internal cardiac defibrillator (ICD) and pacemaker - Family History Family History: Family History (Last Updated 05/03/18 @ 09:09 by Toby Laura MD) Father Myocardial infarction - Tobacco History Second Hand Smoke Exposure: No Tobacco Use In Past 30 Days: No Smoking Status: Former smoker Tobacco Type: Cigarettes, Cigars Packs Per Day: 1 Years Smoked: 60 Smoking End Date: 10/31/2017 - Alcohol History How Often Do You Have a Drink Containing Alcohol: Never - Substance Use History Substance History: No History of Abuse - Travel History Recent Travel in the [facility] Within the Last 8 Weeks: No Recent Travel Out of the Country Within the Last 8 Weeks: No - Immunization History Tetanus Immunization: Unsure Hx Influenza Vaccine This Season: Yes Medications and Allergies Active Medications: Active Medications Acetaminophen (Tylenol) 650 mg PO Q4H PRN PRN Reason: Temp > 100.4 Al Hydroxide/Mg Hydroxide (Milk Of Jose Arzate) 30 ml PO Q12H PRN PRN Reason: Mild Constipation Amiodarone HCl (Cordarone) 200 mg PO BID [facility] Last Admin: 05/02/18 22:00 Dose: 200 mg Aspirin (Ecotrin) 81 mg PO DAILY [facility] Atorvastatin Calcium (Lipitor) 80 mg PO HS [facility] Last Admin: 05/02/18 22:00 Dose: 80 mg Bisacodyl (Dulcolax Supp) 10 mg RECTAL DAILY PRN PRN Reason: SEVERE CONSITIPATION Buspirone HCl (Buspar) 10 mg PO BID [facility] Last Admin: 05/02/18 22:00 Dose: 10 mg Clopidogrel Bisulfate (Plavix) 75 mg PO DAILY [facility] Sodium Chloride (Ns Inj) 1,000 mls @ 100 mls/hr IV.CONT .Q10H [facility] Last Admin: 05/03/18 05:35 Dose: 100 mls/hr Vancomycin HCl 850 mg/ Sodium (Chloride) 258.5 mls @ 250 mls/hr IV.SIG Q36H [facility] Last Infusion: 05/03/18 04:59 Dose: Infused Piperacillin/Tazobactam/Dextrose (Zosyn 3.375 Gm Premix) 50 mls @ 200 mls/hr IV.SIG Q6H [facility] Lactulose (Lactulose Liq) 30 ml PO DAILY PRN PRN Reason: SEVERE CONSITIPATION Metoprolol Tartrate (Lopressor) 25 mg PO DAILY [facility] Miscellaneous Information ([facility] Ordered Lab Info) 1 each OTHER ONCE ONE Stop: 05/07/18 09:46 Ondansetron HCl (Zofran Inj) 4 mg IV.PUSH Q6H PRN PRN Reason: NAUSEA OR VOMITING Pharmacy Profile Note (Vancomycin Consult Pharmacy) 1 each OTHER UNSCH PRN PRN Reason: Pharmacy to dose Senna/Docusate Sodium (Anca-Colace) 1 tab PO BID [facility] Last Admin: 05/03/18 01:40 Dose: Not Given Sennosides (Senokot) 17.2 mg PO Q12H PRN PRN Reason: Moderate Constipation Sodium Chloride (Ns Flush) 2 ml IV.FLUSH PRN PRN PRN Reason: FLUSH AFTER USING IV ACCESS Allergies Allergy/AdvReac Type Severity Reaction Status Date / Time codeine Allergy Intermediate Hallucinati Verified 05/02/18 18:56 ons anesthetic Allergy Severe Hallucinati Uncoded 05/02/18 18:56 ons Home Medications Medication Instructions Recorded Confirmed Type amiodarone 200 mg PO BID 05/02/18 05/02/18 History aspirin [Aspir-Low] 81 mg PO DAILY 05/02/18 05/02/18 History atorvastatin 80 mg PO HS 05/02/18 05/02/18 History buspirone 10 mg PO BID 05/02/18 05/02/18 History clopidogrel 75 mg PO DAILY 05/02/18 05/02/18 History ipratropium-albuterol 3 ml INHALATION Q6-8H PRN 05/02/18 05/02/18 History levothyroxine 25 mcg PO DAILY 05/02/18 05/02/18 History losartan 100 mg PO HS 05/02/18 05/02/18 History metoprolol tartrate 25 mg PO DAILY 05/02/18 05/02/18 History Exam Vital signs: Vital Signs 05/02/18 16:24 05/02/18 17:15 05/02/18 17:40 Temperature 97.7 F Pulse Rate 67 65 64 Respiratory Rate 20 18 Blood Pressure 100/50 L 112/47 L Pulse Oximetry 92 L 95 97 05/02/18 17:54 05/02/18 18:20 05/02/18 21:30 Temperature Pulse Rate 65 67 Respiratory Rate 20 20 Blood Pressure 106/44 L 109/47 L Pulse Oximetry 100 96 96 05/02/18 22:37 05/03/18 00:00 05/03/18 08:00 Temperature 96.9 F L 97.7 F 97.4 F L Pulse Rate 63 64 69 Respiratory Rate 18 18 19 Blood Pressure 114/52 L 113/62 111/52 L Pulse Oximetry 96 94 L 96 Intake & Output 05/02/18 05/03/18 05/03/18 18:59 06:59 18:59 Intake Total 1000 / 1000 1708.5 / 1708.5 340 / 340 Output Total 300 / 300 Balance 1000 / 1000 1408.5 / 1408.5 340 / 340 Weight 50.4 kg 50.8 kg Intake: IV 1000 / 1000 1708.5 / 1708.5 100 / 100 NS Inj 1,000 ML @ 100 mls/hr IV 1000 / 1000 .CONT .Q10H [facility] Rx#:[id number] Azithromycin Inj 500 MG In NS 250 / 250 Inj 250 ML @ 250 mls/hr IV.SIG ONCE ONE Rx#:[id number] Zosyn 4.5 GM Premix 4.5 gm In 100 / 100 100 / 100 100 ml @ 200 mls/hr IV.SIG Q6H [facility] Rx#:[id number] NS Inj 1,000 ML @ Wide Open IV. 1000 / 1000 SIG BOLUS ONE Rx#:[id number] Vancomycin Inj 850 MG In NS Inj 258.5 / 258.5 250 ML @ 250 mls/hr IV.SIG Q36H [facility] Rx#:[id number] Rocephin Inj 1,000 MG In NS Inj 100 / 100 100 ML @ 200 mls/hr IV.SIG ONCE ONE Rx#:[id number] Oral 240 / 240 Output: Urine 300 / 300 Other: Weight On Admission 51.4 kg Narrative: GENERAL: Well-developed, cachectic, in no acute distress. alert and orientated HEENT: Head is normocephalic without any lesions or masses noted. Facial features are symmetric. Eyes: Pupils equal round reactive to light. Extraocular muscles are intact. Conjunctivae were clear. Oropharyngeal: Pharynx without any erythema edema. Tongue is midline without deviation. Buccal mucosa is moist without any masses or lesions NECK: Supple without any masses. Trachea midline no deviation. No JVD, no bruits are appreciated CARDIAC: Regular rhythm, regular rate. S1/S2 are heard. 2/6 ejection murmur, no gallops or rubs. LUNGS: Clear to auscultation bilaterally. No wheeze, rhonchi or rales. No use of accessory muscles on inspiration or expiration. ABDOMEN: Soft, nontender. Nondistended. Bowel sounds heard in all 4 quadrants. No organomegaly or masses. Negative rebound, negative guarding EXTREMITIES: No edema, pulses are equal bilaterally. No cyanosis or clubbing NEUROLOGY: Mood and affect appear appropriate. Cranial nerves II through XII grossly intact. Muscle strength 5/5 in upper and lower extremities bilaterally. Deep tendon reflexes are 2+ in upper and lower extremities bilaterally. Results - Labs CBC & Chem 7: 05/03/18 04:35 05/03/18 04:35 Labs: Laboratory Results - last 24 hr 05/02/18 05/02/18 05/02/18 17:10 17:10 17:10 CBC w Diff WBC RBC Hgb Hct MCV MCH MCHC RDW Plt Count MPV Neut % (Auto) Lymph % (Auto) Green % (Auto) Eos % (Auto) Baso % (Auto) Neut # (Auto) Lymph # (Auto) Green # (Auto) Eos # (Auto) Baso # (Auto) WBC Differential Diff Scan Differential Comment Rouleaux PT 11.2 INR 1.1 Sodium Potassium Chloride Carbon Dioxide Anion Gap BUN Creatinine Estimated GFR POC Glucose Random Glucose Lactic Acid 0.8 Calcium Magnesium 2.1 Total Bilirubin AST ALT Alkaline Phosphatase Troponin I Less than 0.02 L Total Protein Albumin Lipase TSH 17.900 H Urine Color Urine Clarity Urine pH Ur Specific [place] Urine Protein Urine Glucose (UA) Urine Ketones Urine Occult Blood Urine Nitrate Urine Bilirubin Urine Urobilinogen Ur Leukocyte Esterase Urine RBC Urine WBC Ur Squamous Epith Cells Micro UA Comment Ur Microscopic Review Urine Culture Comments 05/02/18 05/02/18 05/02/18 17:10 17:10 21:12 CBC w Diff Auto diff final WBC 20.1 H RBC 4.15 L Hgb 10.2 L Hct 31.3 L MCV 75.4 L MCH 24.5 L MCHC 32.5 RDW 16.5 Plt Count 691 H MPV 7.8 Neut % (Auto) 88.1 H Lymph % (Auto) 3.7 L Green % (Auto) 6.7 Eos % (Auto) 1.4 Baso % (Auto) 0.1 Neut # (Auto) 17.8 H Lymph # (Auto) 0.7 L Green # (Auto) 1.3 H Eos # (Auto) 0.3 Baso # (Auto) 0.0 WBC Differential . Diff Scan Differential Comment . Rouleaux PT INR Sodium 130 L Potassium 5.4 H Chloride 100 Carbon Dioxide 19.6 L Anion Gap 10 BUN 47 H Creatinine 2.00 H Estimated GFR 33 L POC Glucose Random Glucose 120 H Lactic Acid Calcium 8.8 Magnesium Total Bilirubin 0.3 AST 70 H ALT 63 Alkaline Phosphatase 117 Troponin I Total Protein 7.9 Albumin 1.9 L Lipase 139 TSH Urine Color Yellow Urine Clarity Clear Urine pH 5.5 Ur Specific [place] 1.010 Urine Protein Negative Urine Glucose (UA) Negative Urine Ketones Negative Urine Occult Blood Negative Urine Nitrate Negative Urine Bilirubin Negative Urine Urobilinogen 0.2 Ur Leukocyte Esterase Negative Urine RBC 0-3 Urine WBC 0-5 Ur Squamous Epith Cells 0-5 Micro UA Comment Culture not ind Ur Microscopic Review Microscopic reviewed Urine Culture Comments Culture not ind 05/02/18 05/03/18 05/03/18 23:04 04:35 04:35 CBC w Diff Slide review pending WBC 14.9 H RBC 3.31 L Hgb 8.2 L D Hct 25.1 L MCV 75.9 L MCH 24.7 L MCHC 32.6 RDW 16.5 Plt Count 520 H MPV 7.3 Neut % (Auto) 84.3 H Lymph % (Auto) 5.4 L Green % (Auto) 6.9 Eos % (Auto) 3.3 Baso % (Auto) 0.1 Neut # (Auto) 12.6 H Lymph # (Auto) 0.8 L Green # (Auto) 1.0 H Eos # (Auto) 0.5 H Baso # (Auto) 0.0 WBC Differential . Diff Scan Auto diff confirmed Differential Comment . Rouleaux Present H PT INR Sodium 134 L Potassium 4.8 Chloride 106 Carbon Dioxide 19.9 L Anion Gap 8 BUN 43 H Creatinine 1.50 H Estimated GFR 45 L POC Glucose 90 Random Glucose 105 Lactic Acid Calcium 7.7 L D Magnesium Total Bilirubin 0.1 L AST 52 H ALT 46 Alkaline Phosphatase 83 Troponin I Total Protein 5.8 L D Albumin 1.4 L Lipase TSH Urine Color Urine Clarity Urine pH Ur Specific [place] Urine Protein Urine Glucose (UA) Urine Ketones Urine Occult Blood Urine Nitrate Urine Bilirubin Urine Urobilinogen Ur Leukocyte Esterase Urine RBC Urine WBC Ur Squamous Epith Cells Micro UA Comment Ur Microscopic Review Urine Culture Comments - Imaging Impressions Abdomen/Pelvis CT 05/02/18 17:13 CONCLUSION: 1. Nonspecific, nonobstructive bowel gas pattern which may represent an ileus or gastroenteritis. There is mild to moderate diverticulosis with no definite focal inflammatory change. 2. Degenerative changes in both hips. 3. Consolidation left lower lobe with small effusion. The findings could indicate pneumonia. Chest CT 05/02/18 17:13 CONCLUSION: 1. Multiple masslike areas of consolidative opacity in both lungs as well as a large dense area of consolidation with air bronchograms in the left upper lobe. The findings are of concern for primary tumor and metastatic disease. Multifocal pneumonia could have a similar appearance. 2. Mild pretracheal adenopathy. 3. Coronary artery calcifications. Head CT 05/02/18 17:14 CONCLUSION: 1. Stable appearance with no acute hemorrhage, mass or evidence of acute infarction. . Caprini VTE Risk Assessment Caprini VTE Risk Assessment: Moderate/High Risk (score >= 2) Caprini Risk Assessment Model: Point Value = 1 Point Value = 2 Point Value = 3 Point Value = 5 Age 41-60 Minor surgery BMI > 25 kg/m2 Swollen legs Varicose veins or History of unexplained or recurrent spontaneous Oral contraceptives or hormone replacement Sepsis (< 1 month) Serious lung disease, including pneumonia (< 1 month) Abnormal pulmonary function Acute myocardial infarction Congestive heart failure (< 1 month) History of inflammatory bowel disease Medical patient at bed rest Age 61-74 Arthroscopic surgery Major open surgery (> 45 min) Laparoscopic surgery (> 45 min) Malignancy Confined to bed (> 72 hours) Immobilizing plaster cast Central venous access Age >= 75 History of VTE Family history of VTE Factor V Leiden Prothrombin [id number] Lupus anticoagulant Anticardiolipin antibodies Elevated serum homocysteine Heparin-induced thrombocytopenia Other congenital or acquired thrombophilia Stroke (< 1 month) Elective arthroplasty Hip, pelvis, or leg fracture Acute spinal cord injury (< 1 month) Prophylaxis Regimen: Total Risk Factor Score Risk Level Prophylaxis Regimen 0-1 Low Early ambulation 2 Moderate Order ONE of the following: *Sequential Compression Device (SCD) *Heparin 5000 units SQ BID 3-4 Higher Order ONE of the following medications: *Heparin 5000 units SQ TID *Enoxaparin/Lovenox 40 mg SQ daily (WT < 150 kg, CrCl > 30 mL/min) *Enoxaparin/Lovenox 30 mg SQ daily (WT < 150 kg, CrCl > 10-29 mL/min) *Enoxaparin/Lovenox 30 mg SQ BID (WT < 150 kg, CrCl > 30 mL/min) AND/OR *Sequential Compression Device (SCD) 5 or more Highest Order ONE of the following medications: *Heparin 5000 units SQ TID (Preferred with Epidurals) *Enoxaparin/Lovenox 40 mg SQ daily (WT < 150 kg, CrCl > 30 mL/min) *Enoxaparin/Lovenox 30 mg SQ daily (WT < 150 kg, CrCl > 10-29 mL/min) *Enoxaparin/Lovenox 30 mg SQ BID (WT < 150 kg, CrCl > 30 mL/min) AND *Sequential Compression Device (SCD) Assessment and Plan - Plan Bilateral lung consolidations with right side masslike consolidation -Patient started on vancomycin and Zosyn -Duo nebs every 6 hours while awake and every 2 hours as needed -Oncology consulted who recommended the patient undergo bronchoscopy for further evaluation to rule out any underlying lung malignancy -Pulmonology consultation has been requested -Obtain sputum culture -Start Acapella Leukocytosis -Likely secondary to the above infections -Continue monitor CBC Acute renal failure superimposed on chronic kidney disease with associated hyperkalemia -Patient has had unilateral nephrectomy, patient followed by Dr. Romero -Continue IV fluids -Continue monitor renal function -Avoid nephrotoxins Hyponatremia -Elevated TSH -Increase to levothyroxine 50 mcg daily Hypertension, hypovolemia, coronary disease, history of atrial fibrillation -Continue home medications DVT prevention -Sequential compression devices
[2018-05-03] MEDS: guaiFENesin 600 MG ER Tablet PO SCH ×2 (11:19→22:01)
[2018-05-03] MEDS: Amiodarone 200 MG Tablet PO SCH ×2 (11:19→22:01)
[2018-05-03] MEDS: Metoprolol Tartrate 25 MG Tablet PO SCH (11:19)
[2018-05-03] MEDS ORDERED: Sod Chloride 0.9% Inj 1,000 ML IV.SIG ONE (15:34)
[2018-05-03] MEDS ORDERED: RESP: Albuterol Concentrated 2.5 MG/0.5 ML Neb NEB SCH (18:15)
[2018-05-03] MEDS: Piperacil/Tazo 3.375 GM Premix 50 ML IV.SIG SCH ×2 (18:45→21:34)
[2018-05-03] MEDS: Dextrose 5%/NaCl 0.45% Inj 1,000 ML IV.CONT SCH (18:46)
[2018-05-03 18:51] LABS: Activated Partial Thrombo Time 31.4 sec (24.3-30.1); INR 1.2 Ratio
--- NOTE | 2018-05-03 19:45 | ECG ---
Date Performed: 05/02/2018 Time Performed: 17:21:26 PTAGE: 78 years EKG: Sinus rhythm WITH FIRST DEGREE AV BLOCK INTRAVENTRICULAR CONDUCTION DELAY PROBABLE LATERAL MYOCARDIAL INFARCTION INFERIOR MYOCARDIAL INFARCTION ABNORMAL ECG PREVIOUS TRACING : 08/17/2016 19.25 Since the previous tracing, no significant change noted DOCTOR: Kd Bradford Interpretating Date/Time 05/03/2018 19:44:09
[2018-05-03 21:08] LABS: ABG Base Excess -7.6 mmol/L (-2-2); ABG PCO2 30 mmHg (38-42); ABG PO2 73 mmHg (61-120)
[2018-05-03] MEDS: MethylPREDNISolone Sod Succinate Inj 40 MG/ML Vial IV.PUSH SCH (22:00)
--- NOTE | 2018-05-04 00:19 | MB ---
cc: Yvonne Ham MD DATE: 05/03/2018 REASON FOR CONSULTATION: Bilateral lung infiltrates and hypoxemia. HISTORY OF PRESENT ILLNESS: This is a 78-year-old white male who has had a history for COPD and longstanding history of smoking as well as history of hypertension and hyperlipidemia, previous myocardial infarct and a history of coronary artery disease and ventricular fibrillation as well as obstructive sleep apnea. He was brought to the emergency room with shortness of breath, extreme weakness, cough and chest congestion. The patient states he has been quite fatigued, unable to walk and apparently has not been eating well for several days since he had some dental procedures done. Upon admission was sent for a CT of the chest which showed bilateral consolidative infiltrates. The patient also was having loose stools and thus he was being checked out for Clostridium difficile colitis and he was started on IV fluids as well as antibiotics for hydration, as well as pneumonia. The patient denied hemoptysis. He does have a cough and brings up little mucus. He has had some nausea, but no vomiting. PAST MEDICAL HISTORY: Included history of coronary artery disease with history of carotid artery disease with stenting, history of nephrectomy as well as a history for peripheral vascular disease, history of hypertension, hypothyroidism, and prostatic hypertrophy. PAST SURGICAL HISTORY: Surgery also includes coronary artery stenting with cardiac catheterization, history of sinus surgery and nephrectomy and ICD placement for ventricular fibrillation. HABITS: The patient smoked half to 1 pack per day for over 50 years. No significant alcohol since age 36. FAMILY HISTORY: Father of alcoholism and mother lived to old age and had heart disease and dementia. ALLERGIES: No drug allergies listed. REVIEW OF SYSTEMS: The patient has lost weight. There was wheezing was epigastric distress. He has cough and expectoration. He has loose stools and nausea. Denies any urinary symptoms. He has some joint pains and leg swelling. Denies any skin rash. Has depression with anxiety. PHYSICAL EXAMINATION: GENERAL: This is a thinly built, elderly white male who is lying flat pale and mildly dyspneic. There is no clubbing. Minimal peripheral edema. No lymphadenopathy. VITAL SIGNS: His blood pressure is 100/50, heart rate was 72, respirations 24, temperature 97.5. HEENT: Head is normocephalic. Pupils were reactive and equal. Tongue is dry. Throat is injected. Nasal mucosa is crusted. NECK: Supple. No venous distention. No lymphadenopathy or thyromegaly. CHEST: Equal movements with diminished breath sounds at the periphery with few coarse wheezes throughout both lung caba. HEART: The heart sounds are regular, S1 and S2. No murmur. No S3 gallop. ABDOMEN: Soft, scaphoid, without masses. No organomegaly or tenderness. Bowel sounds are active. EXTREMITIES: Decreased peripheral pulses. Reflexes are 1+ with no gross motor deficits. Cranial nerves grossly intact. SKIN: No lesions. NEUROLOGIC: The patient is alert, oriented, cooperative and answers all questions and has a normal affect. IMPRESSION: 1. Bilateral pulmonary infiltrates, etiology undetermined probable atypical pneumonia versus interstitial lung disease. 2. Rule out malignancy. 3. Chronic obstructive pulmonary disease with emphysema. 4. Hyponatremia. 5. Hypertension. 6. Depression. 7. Hypothyroidism. PLAN: The patient will be advised that a bronchoscopy will be scheduled to evaluate the lower airways. The patient is bradycardic and needs a cardiac evaluation and clearance for the procedure. Coagulation profile will be ordered. Risks of bronchoscopy including bleeding, pneumothorax, respiratory failure, etc., were explained. The patient will be maintained on nebulized DuoNeb solution q.i.d. p.r.n. and antibiotic therapy continued including Zosyn 3.375 grams IV every 6 hours and vancomycin 1 g daily. A followup chest x-ray will be obtained. O2 at 3 liters nasal cannula was placed and blood gas studies done on oxygen. Thank you, Dr. Armijo, for this consultation. MD SANTOS Lan/mellisa , 07:52 PM , 08:04 PM
[2018-05-04] MEDS: Piperacil/Tazo 3.375 GM Premix 50 ML IV.SIG SCH ×5 (00:37→20:44)
[2018-05-04] MEDS: Sod Chloride 0.9% Inj 1,000 ML IV.CONT SCH ×4 (02:08→20:45)
[2018-05-04] MEDS: Levothyroxine 50 MCG Tablet PO SCH (05:14)
[2018-05-04] MEDS: MethylPREDNISolone Sod Succinate Inj 40 MG/ML Vial IV.PUSH SCH ×5 (05:15→23:42)
[2018-05-04 06:36] LABS: Baso % (Auto) 0.1 % (0.0-2.0); Eos % (Auto) 0.1 % (0.0-4.0); Hematocrit 24.7 % (39.0-51.0); Hemoglobin 7.8 gm/dL (13.0-17.0); Lymph # (Auto) 0.3 th/mm3 (1.0-4.8); Mean Corpuscular HGB Conc 31.4 % (32.0-36.0); Mean Corpuscular Volume 76.4 fL (80.0-100.0); Mean Platelet Volume 7.5 fL (7.0-11.0); Mono # (Auto) 0.1 th/mm3 (0.0-0.9); Mono % (Auto) 0.6 % (0.0-8.0); Neut # (Auto) 16.3 th/mm3 (1.8-7.7); Neut % (Auto) 97.2 % (16.0-70.0); Platelet Count 506 th/mm3 (150-450); Red Blood Count 3.23 mil/mm3 (4.50-5.90); Red Cell Distribution Width 16.9 % (11.6-17.2); White Blood Count 16.7 th/mm3 (4.0-11.0)
[2018-05-04 06:46] LABS: Potassium 5.5 meq/L (3.5-5.1)
[2018-05-04 06:53] LABS: Calcium 7.7 mg/dL (8.5-10.1); Carbon Dioxide 19.2 meq/L (21.0-32.0)
--- NOTE | 2018-05-04 08:48 | MB ---
cc: Leroy Sen MD, Alan S MD Morales-Geraldino, Dr. DATE: 05/04/2018 I have reviewed extensive office and hospital records. HISTORY OF PRESENT ILLNESS: The patient is a 78-year-old white man I am asked to clear for bronchoscopy. The patient has a history of extensive tobacco abuse just stopping a number of weeks ago. He has significant COPD. Additionally, the patient has had severe laryngeal dysfunction with aspiration in 2016 requiring temporary gastrostomy tube. The patient was admitted with increased fatigue, fevers, weight loss and some diarrhea. He also has been having some clear phlegm and cough. He notes moderate dyspnea on exertion, which is stable, but no other cardiac symptomatology, or defibrillator shocks. The patient has an extensive cardiac history with an ischemic cardiomyopathy. He had an TX in 2005 with 3 stents. Catheterization in 2012, showed stents open in the RCA with chronic total LAD. SPECT nuclear 08/07, showed a 20-25% ejection fraction with large fixed defects. Echocardiogram 11/06, showed a 20% to 25% ejection fraction. He did have a [employer] defibrillator placed in 2016. He has had ventricular tachycardia and ventricular fibrillation. In 2016, he had ventricular fibrillation arrest. He had a prolonged hospital stay at that time and actually had the gastrostomy tube placed then. He was placed on amiodarone with some episodes afterwards and both ATP and shock usage of the defibrillator. PAST MEDICAL HISTORY: Otherwise includes ankylosing spondylitis, premature atrial contractions, prior bowel obstruction, carotid disease with right carotid endarterectomy and left carotid stent, prior G-tube, right nephrectomy, right subclavian artery stent, hypertension, hyperlipidemia, chronic kidney disease, prior tobacco abuse, osteoarthritis, COPD, anemia, and chronic kidney disease. SOCIAL HISTORY: He is a and recently stopped smoking. He is a prior drinker. ALLERGIES/INTOLERANCES: JANES INHIBITORS, CODEINE. THERE MAY HAVE BEEN SOME INTOLERANCE TO ANESTHETIC. FAMILY HISTORY: Noncontributory. REVIEW OF SYSTEMS: Remarkable for the above along with slow urination, balance issues, joint, back and neck discomfort and easy bruising. MEDICATION: List reviewed. DIAGNOSTIC STUDIES: EKG shows sinus rhythm with nonspecific intraventricular conduction defect and lateral TX which is stable. Telemetry shows sinus rhythm with occasional bradycardia episodes and pacemaker usage. Minimum rate appears 40. He has been hemodynamically stable. IMAGING: His abdominal and pelvic CT showed a nonspecific bowel gas pattern and consolidation in the left lower lobe. Head CT showed no acute changes. CT of the chest showed a focal mass-like consolidation in the right upper lobe with air bronchograms, mediastinal adenopathy, and multiple mass-like lesions in both lungs, along with coronary calcifications. LABORATORY DATA: He has an elevated white count, worsening anemia. Present hemoglobin 7.8 with hematocrit 24.7. His potassium is up to 5.5 and creatinine 1.5. Albumin has decreased to 1.4. TSH level elevated at 17.9. Liver functions minimally elevated. PHYSICAL EXAMINATION: GENERAL: On exam, he is alert and oriented x3 and resting comfortably. He states if cancer is found he would not want any significant treatment. VITAL SIGNS: He is afebrile at this point in time. HEENT: There are no xanthelasma and oropharyngeal mucosa normal. He is thin and frail. CHEST: With decreased breath sounds and mild to moderate moses expiratory wheezes. NECK: JVD normal. HEART: S1, S2. No definite murmurs or gallops. ABDOMEN: Benign. EXTREMITIES: Show no cyanosis, clubbing, or edema. PULSES: Carotids with bilateral bruits. Radials 1-2+. Femorals 1+ without bruits. Pedals trace. He is not ambulated. BACK: He does have a mild kyphosis. PROBLEMS: 1. Bilateral pulmonary infiltrates with plan of bronchoscopy. 2. History of ischemic cardiomyopathy with recurrent ventricular arrhythmias and defibrillator. 3. Coronary and carotid and subclavian artery stenting with diffuse vascular disease. 4. History of laryngeal dysfunction with aspiration. 5. Severe malnutrition. 6. Bradycardia, on medication. RECOMMENDATIONS: 1. The patient overall is in very poor shape. I do not think he is a candidate for anything aggressive. His risk for bronchoscopy certainly is higher than baseline, and I would consider this at least a moderate cardiovascular risk. It is not prohibitive, however. I am just not clear on how this will necessarily change outcome given his multisystem disease and overall poor status versus just medical management. He may be at the point where palliative care would be indicated. 2. Deep venous thrombosis prophylaxis per primary service. 3. Continue low-dose beta blockers along with amiodarone and antiplatelet agents and statins. 4. His overall prognosis is guarded. I have nothing more to add and we will be available if needed. Certainly, he is not a candidate for anything aggressive from a cardiovascular standpoint, and again I am not clear as to truly how this is going to change his outcome given his overall poor status, and poor nutritional status, and history of aspiration. All questions were answered. 5. I have spoken with the wallpaper installer, Dr. Ham. MD SUSSY Flores/heri , 07:12 AM , 07:24 AM AUTUMN
--- NOTE | 2018-05-04 10:02 | P.PN ---
Subjective Interval history: 78-year-old male who was seen for follow-up on lung mass, pneumonia. Patient resting carefully in bed. Patient states that he spoke with the stringed instrument repairer to the kidney and that is very high risk for surgical intervention to include bronchoscopy. Patient is rethinking his plan of action. He is waiting for his family to come to the hospital so they can discuss his options. Clinically the patient is stable, patient remains afebrile. Physical Exam Vital signs: Vital Signs 05/03/18 11:40 05/03/18 12:00 05/03/18 13:49 Temperature 98.0 F Pulse Rate 67 65 48 L Respiratory Rate 24 20 20 Blood Pressure 118/58 L Pulse Oximetry 97 05/03/18 13:53 05/03/18 16:00 05/03/18 19:10 Temperature 97.7 F Pulse Rate 41 L 42 L Respiratory Rate 21 20 Blood Pressure 91/46 L Pulse Oximetry 98 95 95 05/03/18 22:00 05/04/18 00:00 05/04/18 04:00 Temperature 95.7 F L 96.7 F L Pulse Rate 40 L 44 L 54 L Respiratory Rate 16 16 Blood Pressure 97/47 L 103/53 L Pulse Oximetry 94 L 96 05/04/18 08:00 05/04/18 08:02 Temperature 97.8 F Pulse Rate 68 56 L Respiratory Rate 20 18 Blood Pressure 126/58 L Pulse Oximetry 95 96 Intake & Output 05/03/18 05/04/18 05/04/18 18:59 06:59 18:59 Intake Total 2380 / 2380 2150 / 2150 0 / 0 Output Total 325 / 325 Balance 2380 / 2380 1825 / 1825 0 / 0 Weight 53.9 kg Intake: IV 1100 / 1100 2150 / 2150 NS Inj 1,000 ML @ 100 mls/hr IV 1000 / 1000 1000 / 1000 .CONT .Q10H ILYA Rx#:[id number] Zosyn 3.375 GM Premix 50 ML @ 150 / 150 200 mls/hr IV.SIG Q6H ILYA Rx#: [id number] Zosyn 4.5 GM Premix 4.5 gm In 100 / 100 100 ml @ 200 mls/hr IV.SIG Q6H ILYA Rx#:[id number] NS Inj 1,000 ML @ Wide Open IV. 1000 / 1000 SIG BOLUS ONE Rx#:[id number] Oral 1280 / 1280 0 / 0 Output: Urine 325 / 325 Narrative: GENERAL: Well-developed, cachectic, in no acute distress. alert and orientated HEENT: Head is normocephalic without any lesions or masses noted. Facial features are symmetric. Eyes: Extraocular muscles are intact. Conjunctivae were clear. NECK: Supple without any masses. Trachea midline no deviation. No JVD, CARDIAC: Regular rhythm, regular rate. S1/S2 are heard. 2/6 ejection murmur, no gallops or rubs. LUNGS: Clear to auscultation bilaterally. No wheeze, rhonchi or rales. No use of accessory muscles on inspiration or expiration. ABDOMEN: Soft, nontender. Nondistended. Bowel sounds heard in all 4 quadrants. No organomegaly or masses. Negative rebound, negative guarding EXTREMITIES: No edema, pulses are equal bilaterally. No cyanosis or clubbing NEUROLOGY: Mood and affect appear appropriate. Cranial nerves II through XII grossly intact. Moving all extremities, speech is clear Results - Labs CBC & Chem 7: 05/04/18 04:40 05/04/18 04:40 Laboratory Results - last 24 hr 05/03/18 05/03/18 05/04/18 18:25 20:57 04:40 CBC w Diff WBC RBC Hgb Hct MCV MCH MCHC RDW Plt Count MPV Neut % (Auto) Lymph % (Auto) [place] % (Auto) Eos % (Auto) Baso % (Auto) Neut # (Auto) Lymph # (Auto) [place] # (Auto) Eos # (Auto) Baso # (Auto) WBC Differential Diff Scan Differential Comment PT 12.0 H INR 1.2 APTT 31.4 H Puncture Site Right brachial Patient Temperature 98.6 O2 Saturation 93 ABG pH 7.36 L ABG pCO2 30 L ABG pO2 73 ABG HCO3 17 L ABG O2 Content 9.7 L ABG Base Excess -7.6 L ABG Methemoglobin 0.5 Govind Test Y Hemoglobin 7.3 L* Carboxyhemoglobin 1.4 O2 Delivery Device Nasal cannula Liter Flow 3.00 Critical Value Yes Sodium 139 Potassium 5.5 H Chloride 111 H Carbon Dioxide 19.2 L Anion Gap 9 BUN 35 H Creatinine 1.50 H Estimated GFR 45 L Random Glucose 136 H Calcium 7.7 L 05/04/18 04:40 CBC w Diff Slide review pending WBC 16.7 H RBC 3.23 L Hgb 7.8 L Hct 24.7 L MCV 76.4 L MCH 24.0 L MCHC 31.4 L RDW 16.9 Plt Count 506 H MPV 7.5 Neut % (Auto) 97.2 H Lymph % (Auto) 2.0 L [place] % (Auto) 0.6 Eos % (Auto) 0.1 Baso % (Auto) 0.1 Neut # (Auto) 16.3 H Lymph # (Auto) 0.3 L [place] # (Auto) 0.1 Eos # (Auto) 0.0 Baso # (Auto) 0.0 WBC Differential . Diff Scan Auto diff confirmed Differential Comment . PT INR APTT Puncture Site Patient Temperature O2 Saturation ABG pH ABG pCO2 ABG pO2 ABG HCO3 ABG O2 Content ABG Base Excess ABG Methemoglobin Govind Test Hemoglobin Carboxyhemoglobin O2 Delivery Device Liter Flow Critical Value Sodium Potassium Chloride Carbon Dioxide Anion Gap BUN Creatinine Estimated GFR Random Glucose Calcium Microbiology 05/02/18 19:05 Blood - Peripheral Aerobic Blood Culture - Preliminary No growth in 1 day 05/02/18 19:05 Blood - Peripheral Anaerobic Blood Culture - Preliminary No growth in 1 day 05/02/18 19:10 Blood - Peripheral Aerobic Blood Culture - Preliminary No growth in 1 day 05/02/18 19:10 Blood - Peripheral Anaerobic Blood Culture - Preliminary No growth in 1 day Assessment and Plan - Plan Bilateral lung consolidations with right side masslike consolidation -Patient started on vancomycin and Zosyn -Solu-Medrol 40 mg IV every 8 hours -Duo nebs every 6 hours while awake and every 2 hours as needed -Oncology consulted who recommended the patient undergo bronchoscopy for further evaluation to rule out any underlying lung malignancy -Pulmonology consultation has been requested, plans for bronchoscopy today -Cardiology consulted for medical clearance for procedure. Cardiology indicated the patient is very high risk for procedure -Awaiting sputum culture -Continue Acapella -Patient plans to discuss further care options with his family before consenting to any further intervention, considering cardiology notified him that he is at high risk for any procedures or intervention. Leukocytosis -Likely secondary to the above infections, steroid use -Continue monitor CBC Acute renal failure superimposed on chronic kidney disease with associated hyperkalemia -Patient has had unilateral nephrectomy, patient followed by Dr. Romero -Continue IV fluids -Repeat BMP this morning -Avoid nephrotoxins Hyponatremia -Elevated TSH -Increase to levothyroxine 50 mcg daily Hypertension, hypovolemia, coronary disease, history of atrial fibrillation -Continue home medications DVT prevention -Sequential compression devices
[2018-05-04] MEDS: Amiodarone 200 MG Tablet PO SCH ×2 (10:47→20:47)
[2018-05-04] MEDS: Senna/Docusate Sodium 8.6/50 MG Tablet PO SCH ×2 (10:47→20:47)
[2018-05-04] MEDS: guaiFENesin 600 MG ER Tablet PO SCH ×2 (10:48→20:47)
[2018-05-04] MEDS: Metoprolol Tartrate 25 MG Tablet PO SCH (10:48)
[2018-05-04] MEDS: Vancomycin Inj 850 MG in Sodium Chlor 0.9% Inj 250 ML IV.SIG SCH ×2 (12:01→15:32)
--- NOTE | 2018-05-04 12:54 | MB ---
cc: Leroy eSn MD DATE: 05/04/2018 ADDENDUM: I spoke with Dr. Oscar Ham from pulmonary regarding the patient's status after my evaluation. MD SUSSY Flores/heri/louis , 07:35 AM , 07:37 AM
--- NOTE | 2018-05-04 14:12 | ECG ---
Date Performed: 05/03/2018 Time Performed: 18:23:50 PTAGE: 78 years EKG: ELECTRONIC VENTRICULAR PACEMAKER ABNORMAL RHYTHM ECG Compared to PREVIOUS TRACING ventricular pacing is new, Clinical correlation is recommended PREVIOUS TRACIN05/02/2018 17.21 DOCTOR: Siddhartha Garcia Interpretating Date/Time 05/04/2018 14:12:12
--- NOTE | 2018-05-04 18:13 | P.PNONC ---
Subjective Interval history: I have decided to go to rehab first then pursue workup in the lung. Noted a decrease in hemoglobin. Patient complained of feeling tired and weak. Nurses notes blood pressure was low earlier on. He denies any bleeding. No melena no bright red blood per rectum. He had a bowel movement today. He denies any abnormality. He attributes his anemia to his tooth infection. He is not desirous of hospice care at present. Daughter at bedside during the interview. Objective Vital Signs/Intake & Output: Vital Signs 05/03/18 19:10 05/03/18 22:00 05/04/18 00:00 Temperature 95.7 F L Pulse Rate 42 L 40 L 44 L Respiratory Rate 20 16 Blood Pressure 97/47 L Pulse Oximetry 95 94 L 05/04/18 04:00 05/04/18 08:00 05/04/18 08:02 Temperature 96.7 F L 97.8 F Pulse Rate 54 L 68 56 L Respiratory Rate 16 20 18 Blood Pressure 103/53 L 126/58 L Pulse Oximetry 96 95 96 05/04/18 12:00 05/04/18 14:33 05/04/18 16:00 Temperature 98.7 F 97.8 F Pulse Rate 57 L 52 L 58 L Respiratory Rate 20 18 19 Blood Pressure 131/60 101/45 L Pulse Oximetry 96 97 Intake & Output 05/03/18 05/04/18 05/04/18 18:59 06:59 18:59 Intake Total 2380 / 2380 2150 / 2150 1000 / 1000 Output Total 325 / 325 200 / 200 Balance 2380 / 2380 1825 / 1825 800 / 800 Weight 53.9 kg Intake: IV 1100 / 1100 2150 / 2150 1000 / 1000 NS Inj 1,000 ML @ 100 mls/hr IV 1000 / 1000 1000 / 1000 1000 / 1000 .CONT .Q10H LUCY Rx#:[id number] Zosyn 3.375 GM Premix 50 ML @ 150 / 150 200 mls/hr IV.SIG Q6H LUCY Rx#: [id number] Zosyn 4.5 GM Premix 4.5 gm In 100 / 100 100 ml @ 200 mls/hr IV.SIG Q6H LUCY Rx#:[id number] NS Inj 1,000 ML @ Wide Open IV. 1000 / 1000 SIG BOLUS ONE Rx#:[id number] Oral 1280 / 1280 0 / 0 Output: Urine 325 / 325 200 / 200 Result Diagrams: 05/04/18 04:40 05/04/18 04:40 Laboratory Results: Laboratory Results - last 24 hr 05/03/18 05/03/18 05/04/18 18:25 20:57 04:40 CBC w Diff WBC RBC Hgb Hct MCV MCH MCHC RDW Plt Count MPV Neut % (Auto) Lymph % (Auto) [place] % (Auto) Eos % (Auto) Baso % (Auto) Neut # (Auto) Lymph # (Auto) [place] # (Auto) Eos # (Auto) Baso # (Auto) WBC Differential Diff Scan Differential Comment PT 12.0 H INR 1.2 APTT 31.4 H Puncture Site Right brachial Patient Temperature 98.6 O2 Saturation 93 ABG pH 7.36 L ABG pCO2 30 L ABG pO2 73 ABG HCO3 17 L ABG O2 Content 9.7 L ABG Base Excess -7.6 L ABG Methemoglobin 0.5 Govind Test Y Hemoglobin 7.3 L* Carboxyhemoglobin 1.4 O2 Delivery Device Nasal cannula Liter Flow 3.00 Critical Value Yes Sodium 139 Potassium 5.5 H Chloride 111 H Carbon Dioxide 19.2 L Anion Gap 9 BUN 35 H Creatinine 1.50 H Estimated GFR 45 L Random Glucose 136 H Calcium 7.7 L 05/04/18 04:40 CBC w Diff Slide review pending WBC 16.7 H RBC 3.23 L Hgb 7.8 L Hct 24.7 L MCV 76.4 L MCH 24.0 L MCHC 31.4 L RDW 16.9 Plt Count 506 H MPV 7.5 Neut % (Auto) 97.2 H Lymph % (Auto) 2.0 L [place] % (Auto) 0.6 Eos % (Auto) 0.1 Baso % (Auto) 0.1 Neut # (Auto) 16.3 H Lymph # (Auto) 0.3 L [place] # (Auto) 0.1 Eos # (Auto) 0.0 Baso # (Auto) 0.0 WBC Differential . Diff Scan Auto diff confirmed Differential Comment . PT INR APTT Puncture Site Patient Temperature O2 Saturation ABG pH ABG pCO2 ABG pO2 ABG HCO3 ABG O2 Content ABG Base Excess ABG Methemoglobin Govind Test Hemoglobin Carboxyhemoglobin O2 Delivery Device Liter Flow Critical Value Sodium Potassium Chloride Carbon Dioxide Anion Gap BUN Creatinine Estimated GFR Random Glucose Calcium Culture Results: Microbiology 05/02/18 19:05 Aerobic Blood Culture - Preliminary Blood - Peripheral No growth in 2 days Anaerobic Blood Culture - Preliminary No growth in 2 days 05/02/18 19:10 Aerobic Blood Culture - Preliminary Blood - Peripheral No growth in 2 days Anaerobic Blood Culture - Preliminary No growth in 2 days Medications: Active Medications Generic Name Dose Route Start Last Admin Trade Name Freq PRN Reason Stop Dose Admin Albuterol 1 ampul 05/03/18 11:00 05/03/18 11:37 Duoneb Neb (Prn) NEB 1 ampul Q2HR NEB PRN Administration SHORTNESS OF BREATH/WHEEZING Albuterol 1 ampul 05/03/18 14:00 05/04/18 14:32 Duoneb Neb (Lucy) NEB 1 ampul Q6HR WHILE AWAKE NEB LUCY Administration Amiodarone HCl 200 mg 05/02/18 21:00 05/04/18 10:47 Cordarone PO 200 mg BID LUCY Administration Aspirin 81 mg 05/03/18 09:00 05/04/18 10:48 Ecotrin PO 81 mg DAILY LUCY Administration Atorvastatin Calcium 80 mg 05/02/18 21:00 05/03/18 22:01 Lipitor PO 80 mg HS LUCY Administration Buspirone HCl 10 mg 05/02/18 21:00 05/04/18 10:47 Buspar PO 10 mg BID LUCY Administration Clopidogrel Bisulfate 75 mg 05/03/18 09:00 05/04/18 10:48 Plavix PO 75 mg DAILY LUCY Administration Guaifenesin 600 mg 05/03/18 11:00 05/04/18 10:48 Mucinex Er PO 600 mg BID LUCY Administration Sodium Chloride 1,000 mls @ 100 mls/hr 05/02/18 19:30 05/04/18 11:57 Ns Inj IV.CONT 100 mls/hr .Q10H LUCY Administration Vancomycin HCl 850 mg/ Sodium 258.5 mls @ 250 mls/hr 05/02/18 22:00 05/04/18 15:32 Chloride IV.SIG 05/04/18 19:00 250 mls/hr Q36H LUCY Administration Piperacillin/Tazobactam/Dextrose 50 mls @ 200 mls/hr 05/03/18 13:00 05/04/18 15:30 Zosyn 3.375 Gm Premix IV.SIG 100 mls/hr Q6H LUCY Infusion Dextrose/Sodium Chloride 1,000 mls @ 30 mls/hr 05/03/18 18:15 05/03/18 18:46 D5w/1/2 Ns Inj IV.CONT Not Given .Q24H LUCY Levothyroxine Sodium 50 mcg 05/04/18 06:00 05/04/18 05:14 Synthroid PO 50 mcg DAILY@0600 LUCY Administration Methylprednisolone Sodium Succinate 40 mg 05/03/18 22:00 05/04/18 15:30 Solumedrol Inj IV.PUSH 40 mg Q8HR LUCY Administration Metoprolol Tartrate 25 mg 05/03/18 09:00 05/04/18 10:48 Lopressor PO Not Given DAILY LUCY Senna/Docusate Sodium 1 tab 05/02/18 21:00 05/04/18 10:47 Anca-Colace PO 1 tab BID LUCY Administration Objective Remarks: GENERAL: Elderly cachectic pale-appearing man, well-developed patient. SKIN: Warm and dry. Pallor. HEAD: Normocephalic. EYES: No scleral icterus. No injection or drainage. NECK: Supple, trachea midline. No JVD or lymphadenopathy. LYMPHATIC: No adenopathy. CARDIOVASCULAR: Regular rate and rhythm without murmurs. RESPIRATORY: Breath sounds equal bilaterally. No accessory muscle use. GASTROINTESTINAL: Abdomen soft, non-tender, nondistended. EXTREMITIES: No cyanosis, or edema. MUSCULOSKELETAL: Adequate muscle tone. NEUROLOGICAL: No obvious focal deficit. Awake, alert, and oriented x3. Assessment/Plan (1) Generalized weakness Code(s): R53.1 - Weakness Status: Acute - Plan 78-year-old man with multiple medical problems. He presents with a lung lesion and pleural effusion and was seen by my partner Dr. Laura yesterday. He was declining any diagnostic procedure for a lesion in the long concerning for bronchogenic carcinoma. CT scan show multiple masslike opacity in both lungs. He was seen by bioinformatics engineer. He was also seen by cardiology. His bronchoscopy carries a significant risk of. At this he decided to defer any procedure until he gets stronger after being in a [facility] facility or rehab. During the course of his hospitalization he is noted to have a decrease in hemoglobin. He had a microcytic anemia. His hemoglobin was 8.2 yesterday. His hemoglobin was 7.8 the time of the visit. He is symptomatic from anemia feeling generalized weakness. He had episode of hypotension. We discussed the risk and benefit of transfusion of 2 units of packed red cells. He was agreeable to this after discussing it with his daughter at bedside and his son over the phone. 1. Follow-up with Dr. Laura as outpatient pending patient's desire to proceed workup. 2. Transfuse 2 units of packed red cells with Lasix in between, Benadryl and Tylenol premed 3. Monitor for any bleeding. 4. Iron studies will be added to earlier labs
--- NOTE | 2018-05-04 18:16 | P.PN ---
Subjective Interval history: Bronchoscopy was cancelled due to Increased risk and poor clinical condition. he will be treated for aspiration Pneumonia and will get a red cell transfusion. He has some cough and wheezing. Admits to coughing while taking thin liquids. Physical Exam Vital signs: Vital Signs 05/03/18 19:10 05/03/18 22:00 05/04/18 00:00 Temperature 95.7 F L Pulse Rate 42 L 40 L 44 L Respiratory Rate 20 16 Blood Pressure 97/47 L Pulse Oximetry 95 94 L 05/04/18 04:00 05/04/18 08:00 05/04/18 08:02 Temperature 96.7 F L 97.8 F Pulse Rate 54 L 68 56 L Respiratory Rate 16 20 18 Blood Pressure 103/53 L 126/58 L Pulse Oximetry 96 95 96 05/04/18 12:00 05/04/18 14:33 05/04/18 16:00 Temperature 98.7 F 97.8 F Pulse Rate 57 L 52 L 58 L Respiratory Rate 20 18 19 Blood Pressure 131/60 101/45 L Pulse Oximetry 96 97 Intake & Output 05/03/18 05/04/18 05/04/18 18:59 06:59 18:59 Intake Total 2380 / 2380 2150 / 2150 1000 / 1000 Output Total 325 / 325 200 / 200 Balance 2380 / 2380 1825 / 1825 800 / 800 Weight 53.9 kg Intake: IV 1100 / 1100 2150 / 2150 1000 / 1000 NS Inj 1,000 ML @ 100 mls/hr IV 1000 / 1000 1000 / 1000 1000 / 1000 .CONT .Q10H ILYA Rx#:[id number] Zosyn 3.375 GM Premix 50 ML @ 150 / 150 200 mls/hr IV.SIG Q6H ILYA Rx#: [id number] Zosyn 4.5 GM Premix 4.5 gm In 100 / 100 100 ml @ 200 mls/hr IV.SIG Q6H ILYA Rx#:[id number] NS Inj 1,000 ML @ Wide Open IV. 1000 / 1000 SIG BOLUS ONE Rx#:[id number] Oral 1280 / 1280 0 / 0 Output: Urine 325 / 325 200 / 200 Narrative: GENERAL: Elderly cachectic, W/M in no acute distress. alert and orientated HEENT: Head is normocephalic without any lesions or masses noted. Facial features are symmetric. Eyes: Extraocular muscles are intact. Conjunctivae were clear. NECK: Supple without any masses. Trachea midline no deviation. No JVD, CARDIAC: Regular rhythm, regular rate. S1/S2 are heard. 2/6 ejection murmur, no gallops or rubs. LUNGS: Occ wheeze, with basal crackles. No use of accessory muscles on inspiration or expiration. ABDOMEN: Soft, nontender. Nondistended. Bowel sounds heard in all 4 quadrants. No organomegaly or masses. Negative rebound, negative guarding EXTREMITIES: No edema, pulses are equal bilaterally. No cyanosis or clubbing NEUROLOGY: Mood and affect appear appropriate. Moving all extremities, speech is clear Results - Labs CBC & Chem 7: 05/04/18 04:40 05/04/18 04:40 Laboratory Results - last 24 hr 05/03/18 05/03/18 05/04/18 18:25 20:57 04:40 CBC w Diff WBC RBC Hgb Hct MCV MCH MCHC RDW Plt Count MPV Neut % (Auto) Lymph % (Auto) [place] % (Auto) Eos % (Auto) Baso % (Auto) Neut # (Auto) Lymph # (Auto) [place] # (Auto) Eos # (Auto) Baso # (Auto) WBC Differential Diff Scan Differential Comment PT 12.0 H INR 1.2 APTT 31.4 H Puncture Site Right brachial Patient Temperature 98.6 O2 Saturation 93 ABG pH 7.36 L ABG pCO2 30 L ABG pO2 73 ABG HCO3 17 L ABG O2 Content 9.7 L ABG Base Excess -7.6 L ABG Methemoglobin 0.5 Govind Test Y Hemoglobin 7.3 L* Carboxyhemoglobin 1.4 O2 Delivery Device Nasal cannula Liter Flow 3.00 Critical Value Yes Sodium 139 Potassium 5.5 H Chloride 111 H Carbon Dioxide 19.2 L Anion Gap 9 BUN 35 H Creatinine 1.50 H Estimated GFR 45 L Random Glucose 136 H Calcium 7.7 L 05/04/18 04:40 CBC w Diff Slide review pending WBC 16.7 H RBC 3.23 L Hgb 7.8 L Hct 24.7 L MCV 76.4 L MCH 24.0 L MCHC 31.4 L RDW 16.9 Plt Count 506 H MPV 7.5 Neut % (Auto) 97.2 H Lymph % (Auto) 2.0 L [place] % (Auto) 0.6 Eos % (Auto) 0.1 Baso % (Auto) 0.1 Neut # (Auto) 16.3 H Lymph # (Auto) 0.3 L [place] # (Auto) 0.1 Eos # (Auto) 0.0 Baso # (Auto) 0.0 WBC Differential . Diff Scan Auto diff confirmed Differential Comment . PT INR APTT Puncture Site Patient Temperature O2 Saturation ABG pH ABG pCO2 ABG pO2 ABG HCO3 ABG O2 Content ABG Base Excess ABG Methemoglobin Govind Test Hemoglobin Carboxyhemoglobin O2 Delivery Device Liter Flow Critical Value Sodium Potassium Chloride Carbon Dioxide Anion Gap BUN Creatinine Estimated GFR Random Glucose Calcium Microbiology 05/02/18 19:05 Blood - Peripheral Aerobic Blood Culture - Preliminary No growth in 2 days 05/02/18 19:05 Blood - Peripheral Anaerobic Blood Culture - Preliminary No growth in 2 days 05/02/18 19:10 Blood - Peripheral Aerobic Blood Culture - Preliminary No growth in 2 days 05/02/18 19:10 Blood - Peripheral Anaerobic Blood Culture - Preliminary No growth in 2 days Assessment and Plan - Plan Impression : 1. Aspiration pneumonia. 2. COPD . 3. CHF and cardiomyopathy. 4. Hypertension. 5. Deconditioning. 6. Anemia. Plan; 1. Continue antibiotics Zosyn and Vancomycin 2. Duoneb nebs qid. 3. O2 3 L N/C 4. PFT CBC,BMP in am' 5. Will hold off on Bronchoscopy till he is better clinically 6. Transfuse 1 U Packed red cells.
[2018-05-04] MEDS: Dextrose 5%/NaCl 0.45% Inj 1,000 ML IV.CONT SCH (18:41)
[2018-05-04] MEDS ORDERED: Acetaminophen 325 MG Tablet PO ONE (19:00)
[2018-05-05] MEDS: Sodium Chlor 0.9% Inj 250 ML IV.SIG SCH ×2 (01:01→01:30)
[2018-05-05] MEDS: Piperacil/Tazo 3.375 GM Premix 50 ML IV.SIG SCH ×3 (01:31→12:51)
[2018-05-05] MEDS: Levothyroxine 50 MCG Tablet PO SCH ×2 (04:38→05:02)
[2018-05-05] MEDS: MethylPREDNISolone Sod Succinate Inj 40 MG/ML Vial IV.PUSH SCH ×3 (04:38→13:28)
[2018-05-05] MEDS: guaiFENesin 600 MG ER Tablet PO SCH (08:23)
[2018-05-05] MEDS: Metoprolol Tartrate 25 MG Tablet PO SCH (08:23)
[2018-05-05] MEDS: Amiodarone 200 MG Tablet PO SCH (08:23)
[2018-05-05] MEDS: Senna/Docusate Sodium 8.6/50 MG Tablet PO SCH (09:21)
[2018-05-05] MEDS: Sod Chloride 0.9% Inj 1,000 ML IV.CONT SCH (09:47)
[2018-05-05 10:47] LABS: Baso % (Auto) 0.1 % (0.0-2.0); Eos % (Auto) 0.1 % (0.0-4.0); Hematocrit 35.6 % (39.0-51.0); Hemoglobin 11.9 gm/dL (13.0-17.0); Lymph # (Auto) 0.3 th/mm3 (1.0-4.8); Mean Corpuscular HGB Conc 33.5 % (32.0-36.0); Mean Corpuscular Hemoglobin 26.7 pg (27.0-34.0); Mean Corpuscular Volume 79.6 fL (80.0-100.0); Mean Platelet Volume 7.3 fL (7.0-11.0); Mono # (Auto) 1.1 th/mm3 (0.0-0.9); Mono % (Auto) 3.3 % (0.0-8.0); Neut # (Auto) 31.4 th/mm3 (1.8-7.7); Neut % (Auto) 95.5 % (16.0-70.0); Platelet Count 523 th/mm3 (150-450); Red Blood Count 4.48 mil/mm3 (4.50-5.90); Red Cell Distribution Width 17.7 % (11.6-17.2); White Blood Count 32.8 th/mm3 (4.0-11.0)
[2018-05-05 11:31] LABS: Calcium 8.3 mg/dL (8.5-10.1); Carbon Dioxide 18.7 meq/L (21.0-32.0); Potassium 3.8 meq/L (3.5-5.1)
[2018-05-05 13:44] VITALS: TEMP 95.4
[2018-05-05] MEDS ORDERED: Vancomycin Inj 750 MG in Sodium Chlor 0.9% Inj 250 ML IV.SIG SCH (14:00)
--- NOTE | 2018-05-05 16:18 | P.DS ---
Date of admission: 05/02/18 19:22 Primary care physician: UNKNOWN Attending physician on discharge: Larry Armijo Anticipated date of discharge: 05/05/18 Brief History from admission: 78-year-old male with known history of hypertension, hyperlipidemia, coronary disease, history of myocardial infarction, chronic obstructive pulmonary disease, chronic tobacco use, history of ventricular fibrillation, obstructive sleep apnea who presented the hospital because of progressive weakness, cough, congestion. Patient states that his symptoms started over 2 weeks ago in which he started having increased fatigue, lethargy. Patient had been dental issues and the physician thought that it may be related to that. The patient had dental work done approximately 10 days ago thinking that would resolve his constitutional symptoms. Patient was started on antibiotics and shortly after that he started developing diarrhea illness. Patient did take Imodium A-D with resolution of diarrhea for 3 days but then it came back. Patient started developing cough, congestion, phlegm production. He had continued weakness and lethargy. Because of his continued symptoms, he came to the emergency department for evaluation. Patient was found to have multiple findings to include sepsis, rather significant masslike consolidation of right lung as well as multiple other consolidations bilaterally. Is recommended patient be admitted for further evaluation and management. Patient has had 2 week history of weakness, fatigue, lethargy. Patient is weight loss of 15 pounds in the last 2 weeks. Patient had decreased appetite. DS: Diagnosis - Discharge Diagnosis (1) Aspiration pneumonia Status: Acute (2) Dysphagia Status: Acute (3) Lung mass Status: Acute (4) Hypoxemia Status: Acute (5) Acute renal failure superimposed on stage 3 chronic kidney disease Status: Acute DS: Medications - Discharge Medications Prescriptions: amoxicillin-pot clavulanate [Augmentin] 1 tab PO BID #14 tab DS: Summary Hospital Course: 78-year-old male with known history of hypertension, hyper lipidemia, coronary artery disease, myocardial infarction, cardio myopathy, chronic obstructive pulmonary disease, chronic tobacco use, history of ventricular fibrillation, obstructive sleep apnea who originally presented to the hospital because of progressive weakness, cough, congestion patient has had multiple admissions and been diagnosed with dysphagia in the past where he had dilatation. Patient has chronic history of aspiration. Patient recently went to have dental work performed and was started on antibiotics. Thinking that this was the problem to his weakness. Patient did not get any better and continue to get worse so he came to emergency department and found to have rather significant consolidations of the bilateral lungs. Possible mass. Patient was admitted for further evaluation and management. Patient was started on vancomycin and Zosyn for antibiotic coverage. Patient does not have any sputum in order to produce culture for antibiotics. Patient did have continued respiratory insufficiency with nasal cannula O2. Patient did have labile O2 saturations. Did have increased shortness of breath this morning after transfusion. However he did significantly improved after diuresis. Patient did have increase with leukocytosis since administration of Solu- Medrol. The therapy did evaluate the patient indicated that the patient does have some dysphagia in which she will require to have mechanical soft diet with nectar thickened liquids. In reference to the lung mass, patient was evaluated by oncologist who recommended bronchoscopy for evaluation. Steam Hoist Operator was consulted who was trying to arrange for bronchoscopy for biopsy. However cardiac consultation was requested for medical clearance due to the patient's comorbidities. Patient with significant cardiomyopathy, cardiac illness. Dr. Sen indicated patient is high risk for any intervention. It was discussed with the patient and family extensively about his plans, care and treatment plan. Patient at this time would like to go to rehab in order to get stronger in order to pursue further testing if needed in the future. Foregoing biopsy during this hospitalization. This can be arranged in outpatient setting. Patient clinically improved with his respiratory status. Patient was continued on antibiotics for aspiration pneumonia. Patient's prognosis is rather poor due to the patient's underlying physical condition. Significant aspiration pneumonia, possible underlying malignancy, significant cardiomyopathy. The patient indicates that if he does get identification that there is cancer, he does not want any aggressive management at that time. Would likely accept hospice care. The patient indicates that he wants to go to rehab as soon as possible so he can get stronger in order to undergo biopsy. Patient has been accepted at local rehab facility. Patient be transferred once arrangements made. - Time Spent with Patient Total time spent providing and/or coordinating discharge services: Greater than 30 minutes - Quality: VTE Deep Vein Thrombosis/Pulmonary Embolism Present on Admission: No Exam Vital signs: Vital Signs 05/04/18 19:15 05/04/18 20:00 05/05/18 00:00 Temperature 96.3 F L 95.4 F L Pulse Rate 57 L 63 79 Respiratory Rate 18 Blood Pressure 122/59 L 145/67 H Pulse Oximetry 96 94 L 94 L 05/05/18 00:08 05/05/18 01:05 05/05/18 01:22 Temperature 95.4 F L 96.9 F L Pulse Rate 84 79 77 Respiratory Rate 22 18 18 Blood Pressure 145/67 H Pulse Oximetry 94 L 05/05/18 04:00 05/05/18 04:09 05/05/18 07:20 Temperature 95.7 F L 96.5 F L Pulse Rate 76 73 Respiratory Rate 18 18 Blood Pressure 132/61 128/69 Pulse Oximetry 93 L 95 87 L 05/05/18 07:27 05/05/18 08:00 05/05/18 12:00 Temperature 94.5 F L 95.4 F L Pulse Rate 82 85 67 Respiratory Rate 24 20 20 Blood Pressure 136/63 118/62 Pulse Oximetry 91 L 90 L 93 L 05/05/18 13:42 Temperature Pulse Rate 66 Respiratory Rate 18 Blood Pressure Pulse Oximetry Intake & Output 05/04/18 05/05/18 05/05/18 18:59 06:59 18:59 Intake Total 1258.5 / 1258.5 2570 / 2570 307.5 / 307.5 Output Total 200 / 200 250 / 250 Balance 1058.5 / 1058.5 2320 / 2320 307.5 / 307.5 Weight 53.8 kg Intake: IV 1258.5 / 1258.5 2050 / 2050 307.5 / 307.5 NS Inj 1,000 ML @ 100 mls/hr IV 1000 / 1000 2000 / 2000 .CONT .Q10H ILYA Rx#:[id number] Zosyn 3.375 GM Premix 50 ML @ 50 / 50 50 / 50 200 mls/hr IV.SIG Q6H ILYA Rx#: [id number] Vancomycin Inj 750 MG In NS Inj 258.5 / 258.5 257.5 / 257.5 250 ML @ 250 mls/hr IV.SIG Q24H ILYA Rx#:[id number] Oral 0 / 0 120 / 120 Intake (Blood Product) Amt 400 / 400 Rbc As-3 Leukoreduced Unit 400 / 400 [id number] Rbc As-3 Leukoreduced Unit 0 / 0 [id number] Output: Urine 200 / 200 250 / 250 Narrative: GENERAL: Well-developed, cachectic, in no acute distress. alert and orientated HEENT: Head is normocephalic without any lesions or masses noted. Facial features are symmetric. Eyes: Extraocular muscles are intact. Conjunctivae were clear. NECK: Supple without any masses. Trachea midline no deviation. No JVD, CARDIAC: Regular rhythm, regular rate. S1/S2 are heard. 2/6 ejection murmur, no gallops or rubs. LUNGS: Clear to auscultation bilaterally. No wheeze, rhonchi or rales. No use of accessory muscles on inspiration or expiration. ABDOMEN: Soft, nontender. Nondistended. Bowel sounds heard in all 4 quadrants. No organomegaly or masses. Negative rebound, negative guarding EXTREMITIES: No edema, pulses are equal bilaterally. No cyanosis or clubbing NEUROLOGY: Mood and affect appear appropriate. Cranial nerves II through XII grossly intact. Moving all extremities, speech is clear Results Procedures completed during hospitalization: none Labs on day of discharge: Labs from last 24 hours 05/05/18 05/05/18 05/04/18 09:45 09:45 18:34 CBC w Diff Slide review pending WBC 32.8 H RBC 4.48 L Hgb 11.9 L D Hct 35.6 L MCV 79.6 L MCH 26.7 L MCHC 33.5 RDW 17.7 H Plt Count 523 H MPV 7.3 Neut % (Auto) 95.5 H Lymph % (Auto) 1.0 L [place] % (Auto) 3.3 Eos % (Auto) 0.1 Baso % (Auto) 0.1 Neut # (Auto) 31.4 H Lymph # (Auto) 0.3 L [place] # (Auto) 1.1 H Eos # (Auto) 0.0 Baso # (Auto) 0.0 WBC Differential . Diff Scan Auto diff confirmed Differential Comment . Sodium 141 Potassium 3.8 D Chloride 110 H Carbon Dioxide 18.7 L Anion Gap 12 BUN 23 H Creatinine 1.30 Estimated GFR 54 L Random Glucose 176 H Calcium 8.3 L Iron TIBC % Saturation Ferritin Blood Type Antibody Screen Antibody Identification Anti-K Rout Panel Path Interp Pending MTS Gel Crossmatch 05/04/18 05/04/18 18:34 18:34 CBC w Diff WBC RBC Hgb Hct MCV MCH MCHC RDW Plt Count MPV Neut % (Auto) Lymph % (Auto) [place] % (Auto) Eos % (Auto) Baso % (Auto) Neut # (Auto) Lymph # (Auto) [place] # (Auto) Eos # (Auto) Baso # (Auto) WBC Differential Diff Scan Differential Comment Sodium Potassium Chloride Carbon Dioxide Anion Gap BUN Creatinine Estimated GFR Random Glucose Calcium Iron 13 L TIBC 130 L % Saturation 10.0 L Ferritin 685 H Blood Type A Positive Antibody Screen Positive H Antibody Identification Rout Panel Path Interp MTS Gel Crossmatch See Detail Preliminary micro results at discharge 05/02/18 19:05 Aerobic Blood Culture - Preliminary Blood - Peripheral No growth in 3 days Anaerobic Blood Culture - Preliminary No growth in 3 days 05/02/18 19:10 Aerobic Blood Culture - Preliminary Blood - Peripheral No growth in 3 days Anaerobic Blood Culture - Preliminary No growth in 3 days - Impressions ITS Impressions Abdomen/Pelvis CT 05/02/18 17:13 CONCLUSION: 1. Nonspecific, nonobstructive bowel gas pattern which may represent an ileus or gastroenteritis. There is mild to moderate diverticulosis with no definite focal inflammatory change. 2. Degenerative changes in both hips. 3. Consolidation left lower lobe with small effusion. The findings could indicate pneumonia. Chest CT 05/02/18 17:13 CONCLUSION: 1. Multiple masslike areas of consolidative opacity in both lungs as well as a large dense area of consolidation with air bronchograms in the left upper lobe. The findings are of concern for primary tumor and metastatic disease. Multifocal pneumonia could have a similar appearance. 2. Mild pretracheal adenopathy. 3. Coronary artery calcifications. Head CT 05/02/18 17:14 CONCLUSION: 1. Stable appearance with no acute hemorrhage, mass or evidence of acute infarction. . Discharge Plan - Discharge Disposition Patient Disposition: 03 Discharge to SNF - Discharge Condition Condition: Stable - Discharge Order Discharge Orders: Discharge Order (Routine); Ordered 05/05/18 Ordered By: Radu Cronin - Discharge Details Anticipated Discharge Date: 05/05/18 - Physicians Team Primary Care Provider: UNKNOWN, Attending Provider: Larry Armijo Other Providers: Oscar Meraz MD ; Marcell Mcknight DO ; Toby Laura MD ; [facility],Agency ; [facility],[place]
[2018-05-05 17:08] VITALS: BP 133/71; PULSE 74; RESP 20; O2SAT 92
--- NOTE | 2018-05-05 18:53 | P.PN ---
Subjective Interval history: Feels better . Still on O2 4 L No chest pain . Coughs up white sputum Physical Exam Vital signs: Vital Signs 05/04/18 19:15 05/04/18 20:00 05/05/18 00:00 Temperature 96.3 F L 95.4 F L Pulse Rate 57 L 63 79 Respiratory Rate 20 18 18 Blood Pressure 122/59 L 145/67 H Pulse Oximetry 96 94 L 94 L 05/05/18 00:08 05/05/18 01:05 05/05/18 01:22 Temperature 95.4 F L 96.9 F L Pulse Rate 84 79 77 Respiratory Rate 22 18 18 Blood Pressure 145/67 H Pulse Oximetry 94 L 05/05/18 04:00 05/05/18 04:09 05/05/18 07:20 Temperature 95.7 F L 96.5 F L Pulse Rate 76 73 Respiratory Rate 18 18 Blood Pressure 132/61 128/69 Pulse Oximetry 93 L 95 87 L 05/05/18 07:27 05/05/18 08:00 05/05/18 12:00 Temperature 94.5 F L 95.4 F L Pulse Rate 82 85 67 Respiratory Rate 24 20 20 Blood Pressure 136/63 118/62 Pulse Oximetry 91 L 90 L 93 L 05/05/18 13:42 05/05/18 16:00 Temperature 95.4 F L Pulse Rate 66 74 Respiratory Rate 18 20 Blood Pressure 133/71 Pulse Oximetry 92 L Intake & Output 05/04/18 05/05/18 05/05/18 18:59 06:59 18:59 Intake Total 1258.5 / 1258.5 2570 / 2570 307.5 / 307.5 Output Total 200 / 200 250 / 250 Balance 1058.5 / 1058.5 2320 / 2320 307.5 / 307.5 Weight 53.8 kg Intake: IV 1258.5 / 1258.5 2049 / 2050 307.5 / 307.5 NS Inj 1,000 ML @ 100 mls/hr IV 1000 / 1000 1999 / 1999 .CONT .Q10H ILYA Rx#:[id number] Zosyn 3.375 GM Premix 50 ML @ 50 / 50 50 / 50 200 mls/hr IV.SIG Q6H ILYA Rx#: [id number] Vancomycin Inj 750 MG In NS Inj 258.5 / 258.5 257.5 / 257.5 250 ML @ 250 mls/hr IV.SIG Q24H ILYA Rx#:[id number] Oral 0 / 0 120 / 120 Intake (Blood Product) Amt 400 / 400 Rbc As-3 Leukoreduced Unit 400 / 400 [id number] Rbc As-3 Leukoreduced Unit 0 / 0 [id number] Output: Urine 200 / 200 250 / 250 Narrative: GENERAL: Well-developed, cachectic, in no acute distress. alert and orientated HEENT: Head is normocephalic without any lesions or masses noted. Eyes: Extraocular muscles are intact. Conjunctivae were clear. NECK: Supple without any masses. Trachea midline no deviation. No JVD, CARDIAC: Regular rhythm, regular rate. S1/S2 are heard. 2/6 ejection murmur, no gallops or rubs. LUNGS: Occ basal rales. No use of accessory muscles on inspiration or expiration. ABDOMEN: Soft, nontender. Nondistended. Bowel sounds heard in all 4 quadrants. No organomegaly or masses. Negative rebound, negative guarding EXTREMITIES: No edema, pulses are equal bilaterally. No cyanosis or clubbing NEUROLOGY: Mood and affect appear appropriate. Cranial nerves II through XII grossly intact. Moving all extremities, speech is clear Results - Labs CBC & Chem 7: 05/05/18 09:45 05/05/18 09:45 Laboratory Results - last 24 hr 05/04/18 05/04/18 05/04/18 18:34 18:34 18:34 CBC w Diff WBC RBC Hgb Hct MCV MCH MCHC RDW Plt Count MPV Neut % (Auto) Lymph % (Auto) [place] % (Auto) Eos % (Auto) Baso % (Auto) Neut # (Auto) Lymph # (Auto) [place] # (Auto) Eos # (Auto) Baso # (Auto) WBC Differential Diff Scan Differential Comment Sodium Potassium Chloride Carbon Dioxide Anion Gap BUN Creatinine Estimated GFR Random Glucose Calcium Iron 13 L TIBC 130 L % Saturation 10.0 L Ferritin 685 H Blood Type A Positive Antibody Screen Positive H Antibody Identification Anti-K MTS Gel Crossmatch See Detail 05/05/18 05/05/18 09:45 09:45 CBC w Diff Slide review pending WBC 32.8 H RBC 4.48 L Hgb 11.9 L D Hct 35.6 L MCV 79.6 L MCH 26.7 L MCHC 33.5 RDW 17.7 H Plt Count 523 H MPV 7.3 Neut % (Auto) 95.5 H Lymph % (Auto) 1.0 L [place] % (Auto) 3.3 Eos % (Auto) 0.1 Baso % (Auto) 0.1 Neut # (Auto) 31.4 H Lymph # (Auto) 0.3 L [place] # (Auto) 1.1 H Eos # (Auto) 0.0 Baso # (Auto) 0.0 WBC Differential . Diff Scan Auto diff confirmed Differential Comment . Sodium 141 Potassium 3.8 D Chloride 110 H Carbon Dioxide 18.7 L Anion Gap 12 BUN 23 H Creatinine 1.30 Estimated GFR 54 L Random Glucose 176 H Calcium 8.3 L Iron TIBC % Saturation Ferritin Blood Type Antibody Screen Antibody Identification MTS Gel Crossmatch Microbiology 05/02/18 19:05 Blood - Peripheral Aerobic Blood Culture - Preliminary No growth in 3 days 05/02/18 19:05 Blood - Peripheral Anaerobic Blood Culture - Preliminary No growth in 3 days 05/02/18 19:10 Blood - Peripheral Aerobic Blood Culture - Preliminary No growth in 3 days 05/02/18 19:10 Blood - Peripheral Anaerobic Blood Culture - Preliminary No growth in 3 days - Procedures none Assessment and Plan - Assessment (1) Pulmonary fibrosis Code(s): J84.10 - Pulmonary fibrosis, unspecified Status: Acute (2) Diarrhea Code(s): R19.7 - Diarrhea, unspecified Status: Acute (3) Hypothyroid Code(s): E03.9 - Hypothyroidism, unspecified Status: Acute (4) Single kidney Code(s): Z90.5 - Acquired absence of kidney Status: Acute (5) Generalized weakness Code(s): R53.1 - Weakness Status: Acute (6) Aspiration pneumonia Code(s): J69.0 - Pneumonitis due to inhalation of food and vomit Status: Acute (7) Dysphagia Code(s): R13.10 - Dysphagia, unspecified Status: Acute (8) Lung mass Code(s): R91.8 - Other nonspecific abnormal finding of lung field Status: Acute - Plan Impression : 1. Aspiration pneumonia. 2. COPD . 3. CHF and cardiomyopathy. 4. Hypertension. 5. Deconditioning. 6. Anemia. 7. pulmonary Fibrosis Plan; 1. Continue antibiotics PO for 1 week 2. Duoneb nebs qid. 3. O2 4 L N/C 4. To rehab today. 5. Will hold off on Bronchoscopy till he is better clinically 6. CBC,BMP in 2 weeks
[2018-05-07] MEDS ORDERED: Pharmacy Ordered Lab Info OTHER ONE (13:45)
== END 2018-05-05 18:57 ==
LOC: PHED 16:11 → PHEDA 19:22 → PH3 21:47
PROVIDERS: ADMIT Hospitalist; ATTEND Hospitalist

== ENCOUNTER 2018-05-06 04:39 | Inpatient (IN) ==
--- NOTE | 2018-05-06 04:57 | ED ---
HPI General Chief complaint: Respiratory Symptoms Stated complaint: EVAC/Short of Breath History of Present Illness HPI narrative: 78-year-old male with history of hypertension, hyperlipidemia, CAD, [place], COPD, recently admitted to the hospital and discharged yesterday after being diagnosed with pneumonia as well as multiple consolidative lesions in the lungs suspicious for metastatic disease, [facility] to [facility] for evaluation of shortness of breath and hypoxia. According to EMS the patient's O2 saturation on room air was 60%. On 4 L nasal cannula the patient's O2 saturation increases to 83%. Patient complains of shortness of breath, cough productive of yellowish sputum, no hemoptysis, and substernal chest pressure. He denies having fevers or chills. Related Data Home Medications Medication Instructions Recorded Confirmed amiodarone 200 mg PO BID 05/02/18 05/06/18 aspirin [Aspir-Low] 81 mg PO DAILY 05/02/18 05/06/18 atorvastatin 80 mg PO HS 05/02/18 05/06/18 buspirone 10 mg PO BID 05/02/18 05/06/18 clopidogrel 75 mg PO DAILY 05/02/18 05/06/18 ipratropium-albuterol 3 ml INHALATION Q6-8H PRN 05/02/18 05/06/18 losartan 100 mg PO HS 05/02/18 05/06/18 metoprolol tartrate 25 mg PO DAILY 05/02/18 05/06/18 levothyroxine 75 mcg PO DAILY 05/06/18 05/06/18 Previous Rx's Medication Instructions Recorded amoxicillin-pot clavulanate 1 tab PO BID #14 tab 05/05/18 [Augmentin] Allergies Allergy/AdvReac Type Severity Reaction Status Date / Time codeine Allergy Intermediate Hallucinati Verified 05/06/18 04:51 ons anesthetic Allergy Severe Hallucinati Uncoded 05/06/18 04:51 ons Review of Systems ROS: all other systems reviewed are negative [facility] Family History Family History Father Myocardial infarction Social History Social History Substance History: No History of Abuse Second Hand Smoke Exposure: No Smoking Status: Former smoker Tobacco Type: Cigarettes Packs Per Day: 1 Cigarettes Per Day: 20.0 Years Smoked: 60 Pack-Years: 60.00 Smoking End Date: 10/31/2017 How Often Do You Have a Drink Containing Alcohol: Never Recent Travel in [facility] within the Last 8 Weeks: No Recent Out of Country Travel within the Last 8 Weeks: No Immunization History Tetanus Immunization: >5 Years Hx Influenza Vaccine This Season: No Exam Narrative Exam Narrative: GENERAL: Cachectic appearing, awake, alert, moderate respiratory distress, speaking full sentences SKIN: Focused skin assessment warm/dry. HEAD: Atraumatic. Normocephalic. EYES: Pupils equal and round. No scleral icterus. No injection or drainage. ENT: No nasal bleeding or discharge. Mucous membranes pink and moist. NECK: Trachea midline. No JVD. CARDIOVASCULAR: Regular rate and rhythm. No murmur appreciated. RESPIRATORY: Moderate respiratory distress. Speaking full sentences. Intercostal retractions. Poor air movement bilaterally. GASTROINTESTINAL: Abdomen soft, non-tender, nondistended. MUSCULOSKELETAL: No obvious deformities. No clubbing. No cyanosis. No edema. NEUROLOGICAL: Awake and alert. No obvious cranial nerve deficits. Motor grossly within normal limits. Normal speech. PSYCHIATRIC: Appropriate mood and affect; insight and judgment normal. Procedures Intubation Time Out Performed: Yes Sedative: etomidate Mg Given: 20 Paralytic: rocuronium Mg Given: 50 Laryngoscope: fiber optic video scope ET Tube Size: 8 ET Tube Uncuffed: No Tube Secured Depth (cm): 23 Tube Secured Location: teeth Tube Placement Confirmation: visualized tube passing through cords, equal breath sounds bilaterally, no breath sounds over epigastrium and confirmation by capnometry Patient Tolerated Procedure: well and no complications Intubation Complications: none Course Initial Documented Vital Signs Temperature 98.9 F 05/06/18 04:45 Pulse Rate 120 H 05/06/18 04:45 Respiratory Rate 35 H 05/06/18 04:45 Blood Pressure 90/48 L 05/06/18 04:45 Pulse Oximetry 67 L 05/06/18 04:45 Last Documented Vital Signs Temperature 98.8 F 05/06/18 06:43 Pulse Rate 104 H 05/06/18 06:43 Respiratory Rate 34 H 05/06/18 06:43 Blood Pressure 86/50 L 05/06/18 06:43 Pulse Oximetry 83 L 05/06/18 06:43 Critical Care Time Critical Care Time: Yes Total Critical Care Time: 35 Attestation: Aggregate critical care time was 35 minutes. Time to perform other separately billable procedures was not included in the critical care time. My time did not include minutes spent treating any other patients simultaneously or on activities that did not directly contribute to the patient's treatment. The services I provided to this patient were to treat and/or prevent clinically significant deterioration that could result in: , permanent disability, septic shock, acute respiratory failure I provided critical care services requiring my management, as noted below: Chart data review, documentation time, medication orders and management, vital sign assessments/reviewing monitor data, ordering and reviewing lab tests, ordering and interpreting/reviewing x-rays and diagnostic studies, care of the patient and discussion of the patient with the admitting physicians. Medical Decision Making MDM Narrative Medical decision making narrative: Patient was notably hypoxic upon arrival to the emergency department with improvement in O2 saturation from the 60% on room air to 83% on 100% nonrebreather. He was provided 3 DuoNeb treatments with slightly more improvement in his O2 saturation. He is speaking full sentences, however is tachypneic. I discussed intubation and DNR status with the patient, however he is unsure what his wishes are at this time. Lactic acid is 3.3 with a WBC count of 40,000. Troponin is 1.1 and is likely secondary to sepsis/ hypoxia. He is also hypotensive with a blood pressure of 80s over 30s. He is awake and alert however. He was given a liter of normal saline IV treated with vancomycin and Zosyn as he was on these 2 antibiotics during his recent admission. I spoke with the patient's daughter India Calderon to inform her of the patient's critical condition and that I would like him to be admitted to the [facility] to the ICU. Case was discussed with waste picker Dr. Tim who has accepted the patient to his service to the ICU at the [facility]. 7:00 AM: Prior to transferring the patient to the [facility] ICU, his dyspnea significantly worsened with significant increased work of breathing. Patient's daughter India Calderon was at the bedside during this. DNR status was discussed. She called the patient's son, her brother, Florin, and a joint decision was made between the patient, the patient's daughter, and the patient' s son to intubate. Medical Screen Exam Complete: Yes Emergency Medical Condition: Yes Differential Diagnosis Differential Diagnosis: Sepsis, pneumonia, PE, metastatic disease, ACS, anemia Lab Data Result diagrams: 05/06/18 04:55 05/06/18 04:55 Lab Results 05/06/18 05/06/18 05/06/18 Range/Units 04:55 04:55 04:55 CBC w Diff Slide review pending WBC 41.3 H (4.0-11.0) th/mm3 RBC 5.15 (4.50-5.90) mil/mm3 Hgb 13.5 (13.0-17.0) gm/dL Hct 41.2 (39.0-51.0) % MCV 80.1 (80.0-100.0) fL MCH 26.2 L (27.0-34.0) pg MCHC 32.7 (32.0-36.0) % RDW 18.0 H (11.6-17.2) % Plt Count 597 H (150-450) th/mm3 MPV 7.2 (7.0-11.0) fL Neut % (Auto) 95.7 H (16.0-70.0) % Lymph % (Auto) 1.3 L (9.0-44.0) % [place] % (Auto) 2.7 (0.0-8.0) % Eos % (Auto) 0.1 (0.0-4.0) % Baso % (Auto) 0.2 (0.0-2.0) % Neut # (Auto) 39.6 H (1.8-7.7) th/mm3 Lymph # (Auto) 0.5 L (1.0-4.8) th/mm3 [place] # (Auto) 1.1 H (0.0-0.9) th/mm3 Eos # (Auto) 0.0 (0.0-0.4) th/mm3 Baso # (Auto) 0.1 (0.0-0.2) th/mm3 WBC Differential . Diff Scan Auto diff confirmed Differential Comment . Platelet Estimate High H (Normal) Platelet Morphology Clumped H (Normal) PT 12.3 H (9.8-11.6) sec INR 1.2 Ratio APTT 29.1 (24.3-30.1) sec Puncture Site Patient Temperature O2 Saturation (90-100) % ABG pH (7.380-7.420) ABG pCO2 (38-42) mmHg ABG pO2 (61-120) mmHg ABG HCO3 (22-26) mmol/L ABG O2 Content (12.0-20.0) Vol % ABG Base Excess (-2-2) mmol/L ABG Methemoglobin (0-2) % Govind Test Hemoglobin (12.0-16.0) G/DL Carboxyhemoglobin (0-4) % O2 Delivery Device Liter Flow L/M Critical Value Sodium (136-145) meq/L Potassium (3.5-5.1) meq/L Chloride (98-107) meq/L Carbon Dioxide (21.0-32.0) meq/L Anion Gap (5-15) meq/L BUN (7-18) mg/dL Creatinine (0.60-1.30) mg/dL Estimated GFR (>89) mL/min Random Glucose (74-106) mg/dL Lactic Acid (0.4-2.0) mmol/L Calcium (8.5-10.1) mg/dL Total Bilirubin (0.2-1.0) mg/dL AST (15-37) U/L ALT (12-78) U/L Alkaline Phosphatase (45-117) U/L Total Creatine Kinase 173 (39-308) U/L CK-MB (CK-2) 5.1 H (0.5-3.6) ng/mL Troponin I 1.10 H* (0.02-0.05) ng/mL Total Protein (6.4-8.2) g/dL Albumin (3.4-5.0) g/dL 05/06/18 05/06/18 05/06/18 Range/Units 04:55 04:55 05:05 CBC w Diff WBC (4.0-11.0) th/mm3 RBC (4.50-5.90) mil/mm3 Hgb (13.0-17.0) gm/dL Hct (39.0-51.0) % MCV (80.0-100.0) fL MCH (27.0-34.0) pg MCHC (32.0-36.0) % RDW (11.6-17.2) % Plt Count (150-450) th/mm3 MPV (7.0-11.0) fL Neut % (Auto) (16.0-70.0) % Lymph % (Auto) (9.0-44.0) % [place] % (Auto) (0.0-8.0) % Eos % (Auto) (0.0-4.0) % Baso % (Auto) (0.0-2.0) % Neut # (Auto) (1.8-7.7) th/mm3 Lymph # (Auto) (1.0-4.8) th/mm3 [place] # (Auto) (0.0-0.9) th/mm3 Eos # (Auto) (0.0-0.4) th/mm3 Baso # (Auto) (0.0-0.2) th/mm3 WBC Differential Diff Scan Differential Comment Platelet Estimate (Normal) Platelet Morphology (Normal) PT (9.8-11.6) sec INR Ratio APTT (24.3-30.1) sec Puncture Site Right radial Patient Temperature 98.6 O2 Saturation 89 L* (90-100) % ABG pH 7.42 (7.380-7.420) ABG pCO2 30 L (38-42) mmHg ABG pO2 61 (61-120) mmHg ABG HCO3 19 L (22-26) mmol/L ABG O2 Content 15.6 (12.0-20.0) Vol % ABG Base Excess -4.7 L (-2-2) mmol/L ABG Methemoglobin 1.3 (0-2) % Govind Test Y Hemoglobin 12.6 (12.0-16.0) G/DL Carboxyhemoglobin 1.5 (0-4) % O2 Delivery Device Nrb Liter Flow 13.00 L/M Critical Value Yes Sodium 138 (136-145) meq/L Potassium 4.2 (3.5-5.1) meq/L Chloride 106 (98-107) meq/L Carbon Dioxide 22.0 (21.0-32.0) meq/L Anion Gap 10 (5-15) meq/L BUN 22 H (7-18) mg/dL Creatinine 1.30 (0.60-1.30) mg/dL Estimated GFR 54 L (>89) mL/min Random Glucose 99 (74-106) mg/dL Lactic Acid 3.3 H (0.4-2.0) mmol/L Calcium 8.5 (8.5-10.1) mg/dL Total Bilirubin 0.4 (0.2-1.0) mg/dL AST 68 H (15-37) U/L ALT 57 (12-78) U/L Alkaline Phosphatase 100 (45-117) U/L Total Creatine Kinase (39-308) U/L CK-MB (CK-2) (0.5-3.6) ng/mL Troponin I (0.02-0.05) ng/mL Total Protein 6.8 D (6.4-8.2) g/dL Albumin 1.7 L (3.4-5.0) g/dL Imaging Data Radiologist's impression: Chest X-Ray 05/06/18 04:52 CONCLUSION: Bilateral airspace disease, especially in the upper lobes with probable cavitation on the left. Differential diagnosis includes infection and neoplasm. CT pending. Chest CTA 05/06/18 05:48 CONCLUSION: 1. Worsening airspace consolidation in both lungs, especially in the left upper lobe most characteristic of worsening infection. Also worsening bilateral pleural effusions, left greater than right. 2. No evidence for pulmonary embolus. 3. Spiculated nodules also present in both upper lobes as above suspicious for neoplasm. Discharge Plan Discharge Disposition Patient Disposition: 30 Still Patient Discharge Condition Condition: Critical Discharge Details Diagnosis: Sepsis, Pneumonia, Hypoxia Physicians Team ED Provider: Bony Art Attending Provider: Barney Tim Status ED Status: Admitted Patient
[2018-05-06] MEDS ORDERED: Piperacil/Tazo 3.375 GM Premix 50 ML IV.SIG ONE (05:05)
[2018-05-06] MEDS: Sod Chloride 0.9% Inj 1,000 ML IV.SIG SCH ×2 (05:09→15:19)
[2018-05-06 05:10] LABS: Baso # (Auto) 0.1 th/mm3 (0.0-0.2); Baso % (Auto) 0.2 % (0.0-2.0); Eos % (Auto) 0.1 % (0.0-4.0); Hematocrit 41.2 % (39.0-51.0); Hemoglobin 13.5 gm/dL (13.0-17.0); Lymph # (Auto) 0.5 th/mm3 (1.0-4.8); Lymph % (Auto) 1.3 % (9.0-44.0); Mean Corpuscular HGB Conc 32.7 % (32.0-36.0); Mean Corpuscular Hemoglobin 26.2 pg (27.0-34.0); Mean Corpuscular Volume 80.1 fL (80.0-100.0); Mean Platelet Volume 7.2 fL (7.0-11.0); Mono # (Auto) 1.1 th/mm3 (0.0-0.9); Mono % (Auto) 2.7 % (0.0-8.0); Neut # (Auto) 39.6 th/mm3 (1.8-7.7); Neut % (Auto) 95.7 % (16.0-70.0); Platelet Count 597 th/mm3 (150-450); Red Blood Count 5.15 mil/mm3 (4.50-5.90); White Blood Count 41.3 th/mm3 (4.0-11.0)
[2018-05-06 05:19] LABS: ABG Base Excess -4.7 mmol/L (-2-2); ABG PCO2 30 mmHg (38-42); ABG PO2 61 mmHg (61-120)
--- NOTE | 2018-05-06 05:27 | XR ---
EXAM DATE: 05/06/2018 5:19 AM EDT AGE/SEX: 78 years / Male INDICATIONS: Short of breath. CLINICAL DATA: This is the patient's initial encounter. Patient reports that signs and symptoms have been present for 1 day and indicates a pain score of 0/10. MEDICAL/SURGICAL HISTORY: Cardiovascular disease. Chronic obstructive pulmonary disease. Hypo thyroidism. Hypertension. Defibrillator. Pacemaker. COMPARISON: [facility], CHEST SINGLE AP, 08/17/2016. . FINDINGS: There is dense consolidation in the upper left lung with probable cavitation and adjacent pleural thi ckening or loculated fluid. Patchy airspace disease upper right lung and left lung base as well. Heart size within normal limits. Pacer lead overlies right ventricle. CONCLUSION: Bilateral airspace disease, especially in the upper lobes with probable cavitation on the left. Diffe rential diagnosis includes infection and neoplasm. CT pending. Electronically signed by: Kentrell Hung MD 05/06/2018 5:26 AM EDT
[2018-05-06 05:35] LABS: Chloride 106 meq/L (98-107); Potassium 4.2 meq/L (3.5-5.1); Sodium 138 meq/L (136-145)
[2018-05-06 05:38] LABS: Albumin 1.7 g/dL (3.4-5.0); Anion Gap 10 meq/L (5-15); Calcium 8.5 mg/dL (8.5-10.1)
[2018-05-06 05:39] LABS: Activated Partial Thrombo Time 29.1 sec (24.3-30.1); Blood Urea Nitrogen 22 mg/dL (7-18); Glucose,Random 99 mg/dL (74-106); INR 1.2 Ratio; Prothrombin Time 12.3 sec (9.8-11.6)
[2018-05-06 05:41] LABS: Alanine Aminotransferase 57 U/L (12-78)
[2018-05-06 05:42] LABS: Aspartate Aminotransferase 68 U/L (15-37); Glomerular Filtration Rate 54 mL/min (>89)
[2018-05-06 05:43] LABS: Total Protein 6.8 g/dL (6.4-8.2)
[2018-05-06 05:44] LABS: Alkaline Phosphatase 100 U/L (45-117)
[2018-05-06 05:46] LABS: Creatine Kinase 173 U/L (39-308)
[2018-05-06 05:58] LABS: Creatine Kinase MB 5.1 ng/mL (0.5-3.6)
[2018-05-06] MEDS ORDERED: Vancomycin Inj 1,000 MG in Sodium Chlor 0.9% Inj 250 ML IV.SIG ONE (06:00)
[2018-05-06] MEDS ORDERED: Vancomycin Inj 1 GM/200 ML PIGGYBACK IV.SIG SCH (06:00)
--- NOTE | 2018-05-06 06:41 | CT ---
EXAM DATE: 05/06/2018 6:30 AM EDT AGE/SEX: 78 years / Male INDICATIONS: Shortness of breath. CLINICAL DATA: This is the patient's subsequent encounter. Patient reports that signs and symptoms h ave been present for 4 - 6 days and indicates a pain score of 4/10. MEDICAL/SURGICAL HISTORY: Chronic obstructive pulmonary disease. Hypertension. Coronary artery dis ease. Nephrectomy, right. Coronary artery stent. Carotid endarterectomy. Pacemaker. RADIATION DOSE: 10.56 CTDI (mGy) COMPARISON: [facility], CT CHEST W/O CONTRAST, 05/02/2018. . TECHNIQUE: Volumetric scanning was performed using a multi-row detector CT scanner during bolus infu nicole of 50 ml Visipaque 320 (iodixanol) nonionic water-soluble contrast as a single exam dose. The d boyd was post processed with a variety of visualization algorithms including full volume maximum inten sity projection and sliding thin slab reformation. Using automated exposure control and adjustment o f the mA and/or kV according to patient size, radiation dose was kept as low as reasonably achievable to obtain optimal diagnostic quality images. DICOM format image data is available electronically fo r review and comparison. FINDINGS: Previously noted airspace consolidation in the lungs on May 02 has worsened with increasing size of bilateral pleural effusions as well. There is underlying emphysema. These consolidations are prob ably infectious in nature. However, there is a spiculated nodule in the right upper lobe on image #45 measuring up to 1.5 cm in diameter which is suspicious for an associated malignancy. There is also a spiculated 1.3 cm nodule i n the left upper lobe on image #45 represent malignancy as well. No filling defects in the pulmonary arteries to suggest pulmonary embolic disease. There is mediastin al adenopathy measuring up to 2.2 cm in the lower right paratracheal region. There are 1.5 cm and 1.6 cm precarinal lymph nodes. These are similar in appearance to prior exam. No acute findings in the upper abdomen. Pacer lead in right ventricle. CONCLUSION: 1. Worsening airspace consolidation in both lungs, especially in the left upper lobe most characteri stic of worsening infection. Also worsening bilateral pleural effusions, left greater than right. 2. No evidence for pulmonary embolus. 3. Spiculated nodules also present in both upper lobes as above suspicious for neoplasm. Electronically signed by: Kentrell Hung MD 05/06/2018 6:40 AM EDT
[2018-05-06 06:52] LABS: Platelet Morphology Clumped (Normal)
[2018-05-06] MEDS ORDERED: Etomidate Inj 40 MG/20 ML Vial IV.PUSH ONE (06:55)
[2018-05-06] MEDS ORDERED: Sod Chloride 0.9% Inj 1,000 ML IV.SIG SCH ×3 (07:15→21:30)
--- NOTE | 2018-05-06 07:51 | XR ---
EXAM DATE: 05/06/2018 7:36 AM EDT AGE/SEX: 78 years / Male INDICATIONS: Post intubation. CLINICAL DATA: This is the patient's subsequent encounter. Patient reports that signs and symptoms h ave been present for 1 day and indicates a pain score of Nonresponsive. MEDICAL/SURGICAL HISTORY: . Chronic obstructive pulmonary disease. Hypertension. Coronary arter y disease. . Nephrectomy, right. Coronary artery stent. Carotid endarterectomy. Pacemaker. COMPARISON: [facility], CTA PULMONARY W CONTRAST W 3D, 05/06/2018. . FINDINGS: Endotracheal tube is present with tip centimeter above the cruz. A pacing implement is present with control pack over left upper chest. Diffuse coarse interstitial infiltrate is more prominent than on earlier exam. Areas of masslike consolidation in the lateral left lung are again noted. CONCLUSION: ET tube tip is just above the cruz. Worsening infiltrates Electronically signed by: Oscar Wen MD 05/06/2018 7:49 AM EDT
[2018-05-06 09:01] LABS: ABG Base Excess -11.7 mmol/L (-2-2); ABG PCO2 52 mmHg (38-42); ABG PO2 66 mmHg (61-120)
[2018-05-06] MEDS ORDERED: Bisacodyl 10 MG Supp RECTAL PRN (10:10)
[2018-05-06] MEDS ORDERED: Vancomycin Consult Pharmacy OTHER PRN (10:26)
[2018-05-06] MEDS: Sod Chloride 0.9% Inj 1,000 ML IV.CONT SCH ×2 (10:30→22:07)
--- NOTE | 2018-05-06 10:55 | P.HPCC ---
History of Present Illness Service: Critical care medicine Primary Care Physician: Luis Jackson Chief Complaint: Cannot breathe History of Present Illness: This 78-year-old gentleman with sides in a local fpc. He was recently discharged from [facility] following evaluation for bilateral lung infiltrates and nodules. He was sent home on oral antibiotics for a pneumonia but returns a day later with white count of 41,000 and severe respiratory distress. Chest x-ray and CAT scan confirmed dense consolidation involving the left upper and lower lobe and multiple segments of the right lung the infiltrative pattern is clearly 1 of a pneumonia. The underlying interstitial disease may well be related to long-term amiodarone use. The nodules with spiculation appear more like multiple lung primaries but the odds are that they represent metastatic disease from some other source. He was quite unstable in the emergency department at [place] and required orotracheal intubation for transfer. On arrival to the ICU here his oxygen saturation was 84% on 100% FiO2 and 10 of PEEP. Discussions were apparently held with multiple family members prior to intubation and all agreed that they would want him intubated and to remain full CODE STATUS at this time. As far as I can figure the nodules have not been further evaluated once recognized on a previous chest x- ray. - Diagnosis (1) Acute hypoxemic respiratory failure (2) Severe sepsis with acute organ dysfunction (3) Acute renal failure superimposed on stage 3 chronic kidney disease (4) Pulmonary fibrosis (5) Pneumonia Inpatient Certification: I certify that the inpatient services were ordered in accordance with Medicare regulations governing the order. This includes certification that hospital inpatient services are reasonable and necessary and in the case of services not specified as inpatient-only under 42 CFR 419.22(n), that they are appropriately provided as inpatient services in accordance to with the 2-midnight benchmark under 43 CFR 412.3(e) Estimated Total Length of Stay (Days): 5 Plans for Post Hospital Care: Not yet determined Review of Systems Unobtainable. Patient is intubated and sedated. No family available. PMF - History History Provided By: Patient, Resident Medical Officer / EMT - Medical History Medical History: Medical History (Last Reviewed 05/06/18 @ 04:49 by Luna Licona RN) Ankylosing spondylitis COPD (chronic obstructive pulmonary disease) Coronary artery disease Enlarged prostate High cholesterol History of common carotid artery stent placement History of left common carotid artery stent placement History of unilateral nephrectomy History of ventricular fibrillation Hypertension Hypothyroid Obstructive sleep apnea Peripheral arterial disease Tobacco abuse - Surgical History Surgical History: Surgical History (Last Reviewed 05/06/18 @ 04:49 by Luna Licona RN) History of cardiac catheterization History of coronary artery stent placement History of nephrectomy History of sinus surgery Presence of combination internal cardiac defibrillator (ICD) and pacemaker - Family History Family History: Family History (Last Updated 05/03/18 @ 09:09 by Toby Laura MD) Father Myocardial infarction - Tobacco History Second Hand Smoke Exposure: No Tobacco Use In Past 30 Days: No Smoking Status: Former smoker Tobacco Type: Cigarettes Packs Per Day: 1 Years Smoked: 60 Smoking End Date: 10/31/2017 - Alcohol History How Often Do You Have a Drink Containing Alcohol: Never - Substance Use History Substance History: No History of Abuse - Travel History Recent Travel in the [place] Within the Last 8 Weeks: No Recent Travel Out of the Country Within the Last 8 Weeks: No - Immunization History Tetanus Immunization: >5 Years Hx Influenza Vaccine This Season: No Medications and Allergies Active Medications: Active Medications Al Hydroxide/Mg Hydroxide (Milk Of Jose Liamalia) 30 ml PO Q12H PRN PRN Reason: Mild Constipation Albuterol (Duoneb Neb (Prn)) 1 ampul NEB Q6HR NEB [facility] Atorvastatin Calcium (Lipitor) 80 mg PO DAILY ILYA Bisacodyl (Dulcolax Supp) 10 mg RECTAL DAILY PRN PRN Reason: SEVERE CONSITIPATION Chlorhexidine Gluconate (Peridex 0.12% Oral Kit) 15 ml OROPHARYNG BID@0800, 2000 [facility] Chlorhexidine Gluconate (Chlorhexidine 2% Cloth) 3 pack TOPICAL DAILY@0400 ILYA Stop: 05/12/18 03:59 Chlorhexidine Gluconate (Chlorhexidine 2% Cloth) 3 pack TOPICAL DAILY@0400 PRN PRN Reason: Extra cloth needed Stop: 05/12/18 03:59 Chlorhexidine Gluconate (Chlorhexidine 2% Cloth) 3 pack TOPICAL DAILY@0400 ILYA Stop: 05/12/18 03:59 Chlorhexidine Gluconate (Chlorhexidine 2% Cloth) 3 pack TOPICAL DAILY@0400 PRN PRN Reason: Extra cloth needed Stop: 05/12/18 03:59 Clopidogrel Bisulfate (Plavix) 75 mg PO DAILY ILYA Famotidine (Pepcid Pf Inj) 20 mg IV.PUSH Q12HR ILYA Fentanyl Citrate (Fentanyl Inj) 50 mcg IV PUSH Q1H PRN PRN Reason: Pain scale 6-10, &/or sedation Sodium Chloride (Ns Inj) 1,000 mls @ 0 mls/hr IV.SIG BOLUS ILYA Last Infusion: 05/06/18 06:43 Dose: Infused Sodium Chloride (Ns Inj) 1,000 mls @ 0 mls/hr IV.SIG BOLUS ILYA Last Infusion: 05/06/18 08:26 Dose: Infused Sodium Chloride (Ns Inj) 1,000 mls @ 84 mls/hr IV.CONT .[id number] ILYA Piperacillin/Tazobactam/Dextrose (Zosyn 3.375 Gm Premix) 50 mls @ 100 mls/hr IV.SIG Q8H ILYA Lactulose (Lactulose Liq) 30 ml PO DAILY PRN PRN Reason: SEVERE CONSITIPATION Levothyroxine Sodium (Synthroid) 75 mcg PO DAILY@0600 [facility] Metoprolol Tartrate (Lopressor) 25 mg PO BID [facility] Ondansetron HCl (Zofran Inj) 4 mg IV.PUSH Q6H PRN PRN Reason: NAUSEA OR VOMITING Pharmacy Profile Note (Vancomycin Consult Pharmacy) 1 each OTHER UNSCH PRN PRN Reason: Pharmacy to dose Senna/Docusate Sodium (Anca-Colace) 1 tab PO BID [facility] Sennosides (Senokot) 17.2 mg PO Q12H PRN PRN Reason: Moderate Constipation Sodium Chloride (Ns Flush) 2 ml IV.FLUSH BID [facility] Sodium Chloride (Ns Flush) 2 ml IV.FLUSH PRN PRN PRN Reason: FLUSH AFTER USING IV ACCESS Allergies Allergy/AdvReac Type Severity Reaction Status Date / Time codeine Allergy Intermediate Hallucinati Verified 05/06/18 04:51 ons anesthetic Allergy Severe Hallucinati Uncoded 05/06/18 04:51 ons Home Medications Medication Instructions Recorded Confirmed Type amiodarone 200 mg PO BID 05/02/18 05/06/18 History aspirin [Aspir-Low] 81 mg PO DAILY 05/02/18 05/06/18 History atorvastatin 80 mg PO HS 05/02/18 05/06/18 History buspirone 10 mg PO BID 05/02/18 05/06/18 History clopidogrel 75 mg PO DAILY 05/02/18 05/06/18 History ipratropium-albuterol 3 ml INHALATION Q6-8H PRN 05/02/18 05/06/18 History losartan 100 mg PO HS 05/02/18 05/06/18 History metoprolol tartrate 25 mg PO DAILY 05/02/18 05/06/18 History levothyroxine 75 mcg PO DAILY 05/06/18 05/06/18 History Results - Labs CBC & Chem 7: 05/06/18 04:55 05/06/18 04:55 Labs: Short CBC 05/06/18 Range/Units 04:55 WBC 41.3 H (4.0-11.0) th/mm3 Hgb 13.5 (13.0-17.0) gm/dL Hct 41.2 (39.0-51.0) % Plt Count 597 H (150-450) th/mm3 BMP 05/06/18 04:55 Sodium 138 Potassium 4.2 Chloride 106 Carbon Dioxide 22.0 BUN 22 H Creatinine 1.30 Calcium 8.5 Cardiac Enzymes 05/06/18 Range/Units 04:55 Total Creatine Kinase 173 (39-308) U/L CK-MB (CK-2) 5.1 H (0.5-3.6) ng/mL Troponin I 1.10 H* (0.02-0.05) ng/mL Liver Function 05/06/18 Range/Units 04:55 Total Bilirubin 0.4 (0.2-1.0) mg/dL AST 68 H (15-37) U/L ALT 57 (12-78) U/L Alkaline Phosphatase 100 (45-117) U/L Albumin 1.7 L (3.4-5.0) g/dL - Imaging Impressions Chest X-Ray 05/06/18 04:52 CONCLUSION: Bilateral airspace disease, especially in the upper lobes with probable cavitation on the left. Differential diagnosis includes infection and neoplasm. CT pending. Chest CTA 05/06/18 05:48 CONCLUSION: 1. Worsening airspace consolidation in both lungs, especially in the left upper lobe most characteristic of worsening infection. Also worsening bilateral pleural effusions, left greater than right. 2. No evidence for pulmonary embolus. 3. Spiculated nodules also present in both upper lobes as above suspicious for neoplasm. Chest X-Ray 05/06/18 07:12 CONCLUSION: ET tube tip is just above the cruz. Worsening infiltrates Exam Vital signs: Vital Signs 05/06/18 04:45 05/06/18 04:58 05/06/18 05:00 Temperature 98.9 F Pulse Rate 120 H 99 H Respiratory Rate 35 H 28 H Blood Pressure 90/48 L Pulse Oximetry 67 L 82 L 05/06/18 05:41 05/06/18 06:43 05/06/18 07:00 Temperature 98.9 F 98.8 F Pulse Rate 107 H 104 H 84 Respiratory Rate 32 H 34 H 22 Blood Pressure 88/39 L 86/50 L 101/55 L Pulse Oximetry 91 L 83 L 84 L 05/06/18 07:15 05/06/18 07:25 05/06/18 07:28 Temperature Pulse Rate 100 H 85 Respiratory Rate 14 14 14 Blood Pressure 91/52 L 102/57 L Pulse Oximetry 80 L 85 L 86 L 05/06/18 08:07 05/06/18 08:16 Temperature Pulse Rate 85 85 Respiratory Rate 14 20 Blood Pressure 94/52 L 112/50 L Pulse Oximetry 84 L 87 L Intake & Output 05/05/18 05/06/18 05/06/18 18:59 06:59 18:59 Intake Total 1050 / 1050 1250 / 1250 Balance 1050 / 1050 1250 / 1250 Weight 49.895 kg Intake: IV 1050 / 1050 1250 / 1250 Zosyn 3.375 GM Premix 50 ML @ 50 / 50 100 mls/hr IV.SIG ONCE ONE Rx#: [id number] NS Inj 1,000 ML @ Wide Open IV. 1000 / 1000 1000 / 1000 SIG BOLUS ILYA Rx#:[id number] Vancomycin Inj 1,000 MG In NS 250 / 250 Inj 250 ML @ 250 mls/hr IV.SIG ONCE ONE Rx#:[id number] Narrative: General: Thin, cachectic elderly gentleman with severe chronic rigidity of the spine. Head: Atraumatic, normal Neck: Rigidly fixed in place, orally intubated. Lungs: Diffuse bilateral rhonchi and tight wheezes. Heart: Regular rate and rhythm, no jugular venous distention. Abdomen: Mildly distended, no guarding, bowel sounds are quiet. Extremities: Tepid, adequately perfused. No peripheral edema. Nailbeds are dusky to blue Neuro: Sedated for transportation from outside hospital. Unresponsive at this point. Pupils 2 mm left 1 mm right, reactive. Caprini VTE Risk Assessment Caprini VTE Risk Assessment: Moderate/High Risk (score >= 2) Caprini Risk Assessment Model: Point Value = 1 Point Value = 2 Point Value = 3 Point Value = 5 Age 41-60 Minor surgery BMI > 25 kg/m2 Swollen legs Varicose veins or History of unexplained or recurrent spontaneous Oral contraceptives or hormone replacement Sepsis (< 1 month) Serious lung disease, including pneumonia (< 1 month) Abnormal pulmonary function Acute myocardial infarction Congestive heart failure (< 1 month) History of inflammatory bowel disease Medical patient at bed rest Age 61-74 Arthroscopic surgery Major open surgery (> 45 min) Laparoscopic surgery (> 45 min) Malignancy Confined to bed (> 72 hours) Immobilizing plaster cast Central venous access Age >= 75 History of VTE Family history of VTE Factor V Leiden Prothrombin [id number] Lupus anticoagulant Anticardiolipin antibodies Elevated serum homocysteine Heparin-induced thrombocytopenia Other congenital or acquired thrombophilia Stroke (< 1 month) Elective arthroplasty Hip, pelvis, or leg fracture Acute spinal cord injury (< 1 month) Prophylaxis Regimen: Total Risk Factor Score Risk Level Prophylaxis Regimen 0-1 Low Early ambulation 2 Moderate Order ONE of the following: *Sequential Compression Device (SCD) *Heparin 5000 units SQ BID 3-4 Higher Order ONE of the following medications: *Heparin 5000 units SQ TID *Enoxaparin/Lovenox 40 mg SQ daily (WT < 150 kg, CrCl > 30 mL/min) *Enoxaparin/Lovenox 30 mg SQ daily (WT < 150 kg, CrCl > 10-29 mL/min) *Enoxaparin/Lovenox 30 mg SQ BID (WT < 150 kg, CrCl > 30 mL/min) AND/OR *Sequential Compression Device (SCD) 5 or more Highest Order ONE of the following medications: *Heparin 5000 units SQ TID (Preferred with Epidurals) *Enoxaparin/Lovenox 40 mg SQ daily (WT < 150 kg, CrCl > 30 mL/min) *Enoxaparin/Lovenox 30 mg SQ daily (WT < 150 kg, CrCl > 10-29 mL/min) *Enoxaparin/Lovenox 30 mg SQ BID (WT < 150 kg, CrCl > 30 mL/min) AND *Sequential Compression Device (SCD) Assessment and Plan - Problem List (1) Acute hypoxemic respiratory failure Code(s): J96.01 - Acute respiratory failure with hypoxia Status: Acute (2) Severe sepsis with acute organ dysfunction Code(s): A41.9 - Sepsis, unspecified organism; R65.20 - Severe sepsis without septic shock Status: Acute (3) Acute renal failure superimposed on stage 3 chronic kidney disease Code(s): N17.9 - Acute kidney failure, unspecified; N18.3 - Chronic kidney disease, stage 3 (moderate) Status: Acute (4) Pulmonary fibrosis Code(s): J84.10 - Pulmonary fibrosis, unspecified Status: Acute (5) Pneumonia Code(s): J18.9 - Pneumonia, unspecified organism Status: Acute - Assessment and Plan Plan: Plan: Neuro -minimize sedation. -Neurochecks. -Provide suitable analgesia. -CAT scan head looking for other metastatic lesions. Cardiovascular -Continue Lopressor following previous episodes of ventricular fibrillation -Discontinue amiodarone as underlying lung disease is possibly related -Keep mag greater than 2, potassium greater than 4 -Known coronary artery disease, continue Plavix Pulmonary -Broad antibiotic coverage with vancomycin and Zosyn pending culture results -Pressure regulated volume control mechanical ventilation -Bronchodilators -Discussed with family possibility of lung biopsy should they want to persist with resuscitation Renal -Underlying chronic kidney disease, avoid nephrotoxins -Follow urine output closely Heme -No evidence of bleeding -Serial white cell count determination ID -Broad antibiotic coverage with vancomycin and Zosyn. -Narrow coverage following culture results. Prophylaxis -SCDs, Pepcid for GI ulcer prophylaxis, hold chemical DVT prophylaxis pending decision about lung biopsy. Overall impression: This frail, elderly gentleman is critically ill with severe sepsis and acute organ dysfunction. The source is a bilateral pneumonia with dense consolidation. The gentleman requires mechanical ventilation which we will be unable to wean for several days. There are several masses in both lungs which undoubtedly represent metastatic malignancy. Critical care time 45 minutes aside from procedures.
[2018-05-06 11:28] LABS: ABG Base Excess -9.9 mmol/L (-2-2); ABG PCO2 51 mmHg (38-42); ABG PO2 73 mmHg (61-120)
[2018-05-06] MEDS: Oral Hygiene Kit OROPHARYNG SCH ×2 (12:06→19:36)
[2018-05-06] MEDS: Piperacil/Tazo 3.375 GM Premix 50 ML IV.SIG SCH ×2 (12:06→20:33)
--- NOTE | 2018-05-06 18:47 | ECG ---
Date Performed: 05/06/2018 Time Performed: 05:02:56 PTAGE: 78 years EKG: Sinus rhythm INTRAVENTRICULAR CONDUCTION DELAY INFERIOR MYOCARDIAL INFARCTION ABNORMAL ECG INTERPRETATION BASED O N A DEFAULT AGE OF 40 YEARS PREVIOUS TRACING : 05/03/2018 18.23 Compared to previous tracing, ventricular pacemaker rhythm is no longer present DOCTOR: Ilan Haider Interpretating Date/Time 05/06/2018 18:46:07
[2018-05-06] MEDS ORDERED: RESP: Albuterol Concentrated 2.5 MG/0.5 ML Neb NEB SCH (19:15)
[2018-05-06] MEDS: fentaNYL Citrate Inj 100 MCG/2 ML Ampul IV PUSH PRN (19:45)
--- NOTE | 2018-05-06 20:27 | MB ---
cc: Yvonne Ham MD DATE: 05/06/2018 REASON FOR CONSULTATION: Respiratory failure and bilateral pulmonary infiltrates. HISTORY OF PRESENT ILLNESS: This is a 78-year-old white male who was discharged from the hospital yesterday. He was brought back to the emergency room with severe respiratory distress and elevated white count. The [facility] and on antibiotic therapy, and was brought back to the ER with severe respiratory distress and his white count was markedly elevated. He was on antibiotic therapy including Zosyn and vancomycin which were switched to oral medications. His chest x-ray showed evidence of bilateral pulmonary infiltrates, patchy in nature. A CT scan of the chest was done, which showed dense consolidation involving the left upper and lower lobes and multiple segments of the right lung. The patient also has a significant interstitial lung disease and has been on amiodarone in the past. The nodules were bilateral which were also noted to be spiculated. The patient was advised to have a bronchoscopy, but he elected not to do it due to a moderately high risk of this procedure including anesthesia risk. He has been on oxygen at 3 liters, but upon arrival in the ER, he was in severe respiratory distress and had to be intubated and placed on ventilator support and now on FiO2 of 80%. He is now being admitted for pneumonia and sepsis. PAST MEDICAL HISTORY: Has included ankylosing spondylitis, history of COPD and emphysema, history of coronary artery disease and atrial arrhythmias, history of amiodarone use and interstitial lung disease, prior history of prostatic hypertrophy, history of carotid artery stenting, as well as peripheral vascular disease. Has had a nephrectomy and has been treated for hypertension, hypothyroidism, and has obstructive sleep apnea. PAST SURGICAL HISTORY: Includes cardiac catheterization and coronary stenting, nephrectomy on the right, sinus surgery, history of AICD placement and vascular procedures. HABITS: The patient smoked 1 pack per day for over 60 years. Alcohol use in the past, but not recently. FAMILY HISTORY: Noncontributory. REVIEW OF SYSTEMS: The patient is on ventilator support. PHYSICAL EXAMINATION: GENERAL: This is a thinly built, elderly man, who is intubated, responsive and cooperative on ventilator support. VITAL SIGNS: Blood pressure 100/60, pulse is 110, respirations 24, temperature 98.9. HEENT: Head is normocephalic. Pupils reactive. Sclerae were clear. Nasal mucosa edematous. NECK: Supple without jugular venous distention. No thyromegaly. CHEST: Decreased excursions with coarse wheezes throughout both lung caba with occasional crackles in the left chest. HEART: Sounds are regular, S1 and S2. No murmur. ABDOMEN: Soft, nontender. Bowel sounds are faint. No organomegaly. EXTREMITIES: Decreased peripheral pulses. Does move all his extremities to command. Reflexes 1+. No gross motor deficits. SKIN: Dry and cool. IMPRESSION: 1. Hypoxemic respiratory failure. 2. Severe sepsis with organ dysfunction. 3. Chronic obstructive pulmonary disease and pulmonary fibrosis. 4. Obstructive sleep apnea. 5. History of coronary artery disease. 6. Peripheral vascular disease. 7. Bilateral pneumonia with hypoxemia. 8. Lung nodules, rule out malignancy. PLAN: The patient will be maintained on ventilator support and antibiotic therapy continued for sepsis and pneumonia. Nebulized DuoNeb solution added q.i.d. A coagulation profile to be done, as the patient's family was advised that a bronchoscopy will be scheduled to evaluate the pulmonary infiltrates and lung nodules. The risks were also discussed with them. We will hold off on anticoagulation until the procedure is completed. Thank you for this consultation. MD SANTOS Lan/nitin , 07:09 PM , 07:23 PM
[2018-05-06] MEDS: Famotidine PF Inj 20 MG/2 ML Vial IV.PUSH SCH (20:32)
[2018-05-06] MEDS: Senna/Docusate Sodium 8.6/50 MG Tablet PO SCH (20:32)
[2018-05-06] MEDS: Metoprolol Tartrate 25 MG Tablet PO SCH (20:33)
[2018-05-06] MEDS: Chlorhexidine 0.12% Oral Kit 15 ML UDC OROPHARYNG SCH (20:33)
[2018-05-06] MEDS ORDERED: Famotidine 20 MG Tablet PO SCH (21:00)
[2018-05-06] MEDS ORDERED: Famotidine 20 MG Tablet NG/OG SCH (21:00)
[2018-05-06] MEDS ORDERED: Famotidine PF Inj 20 MG/2 ML Vial IV.PUSH SCH (21:00)
[2018-05-06] MEDS ORDERED: Albumin Human 5% Inj 500 ML IV.SIG ONE (22:00)
[2018-05-07] MEDS: Oral Hygiene Kit OROPHARYNG SCH ×5 (00:01→23:53)
[2018-05-07] MEDS ORDERED: Chlorhexidine Gluconate 2% 1 Pack (2 Cloths) TOPICAL PRN ×2 (04:00)
[2018-05-07] MEDS: Chlorhexidine Gluconate 2% 1 Pack (2 Cloths) TOPICAL SCH ×2 (04:38→04:53)
[2018-05-07 04:54] LABS: Baso % (Auto) 0.1 % (0.0-2.0); Eos # (Auto) 0.1 th/mm3 (0.0-0.4); Eos % (Auto) 0.2 % (0.0-4.0); Hematocrit 31.5 % (39.0-51.0); Lymph # (Auto) 0.3 th/mm3 (1.0-4.8); Lymph % (Auto) 1.1 % (9.0-44.0); Mean Corpuscular HGB Conc 31.6 % (32.0-36.0); Mean Corpuscular Hemoglobin 25.6 pg (27.0-34.0); Mean Corpuscular Volume 80.8 fL (80.0-100.0); Mean Platelet Volume 7.1 fL (7.0-11.0); Mono # (Auto) 0.5 th/mm3 (0.0-0.9); Mono % (Auto) 2.1 % (0.0-8.0); Neut # (Auto) 23.6 th/mm3 (1.8-7.7); Neut % (Auto) 96.5 % (16.0-70.0); Platelet Count 333 th/mm3 (150-450); Red Cell Distribution Width 18.6 % (11.6-17.2); White Blood Count 24.5 th/mm3 (4.0-11.0)
[2018-05-07] MEDS: Piperacil/Tazo 3.375 GM Premix 50 ML IV.SIG SCH ×3 (04:54→20:52)
[2018-05-07 05:12] LABS: Albumin 1.7 g/dL (3.4-5.0); Calcium 7.4 mg/dL (8.5-10.1); Carbon Dioxide 17.5 meq/L (21.0-32.0); INR 1.5 Ratio; Potassium 3.8 meq/L (3.5-5.1); Prothrombin Time 14.7 sec (9.8-11.6); Total Protein 5.3 g/dL (6.4-8.2)
[2018-05-07] MEDS: Levothyroxine 75 MCG Tablet PO SCH (05:38)
[2018-05-07] MEDS: Sod Chloride 0.9% Inj 1,000 ML IV.CONT SCH (06:07)
[2018-05-07] MEDS ORDERED: Amiodarone Inj 150 MG in Dextrose 5% in Water Inj 97 ML IV.SIG ONE ×2 (06:19)
[2018-05-07] MEDS ORDERED: Magnesium Sulfate Inj 2 GM in Sodium Chlor 0.9% Inj 96 ML IV.SIG ONE (06:21)
--- NOTE | 2018-05-07 06:45 | P.PNCC ---
Subjective Subjective Remarks/Hospital Course: This 78-year-old gentleman with sides in a local detention. He was recently discharged from [facility] following evaluation for bilateral lung infiltrates and nodules. He was sent home on oral antibiotics for a pneumonia but returns a day later with white count of 41,000 and severe respiratory distress. Chest x-ray and CAT scan confirmed dense consolidation involving the left upper and lower lobe and multiple segments of the right lung the infiltrative pattern is clearly 1 of a pneumonia. The underlying interstitial disease may well be related to long-term amiodarone use. The nodules with spiculation appear more like multiple lung primaries but the odds are that they represent metastatic disease from some other source. He was quite unstable in the emergency department at [place] and required orotracheal intubation for transfer. On arrival to the ICU here his oxygen saturation was 84% on 100% FiO2 and 10 of PEEP. Discussions were apparently held with multiple family members prior to intubation and all agreed that they would want him intubated and to remain full CODE STATUS at this time. As far as I can figure the nodules have not been further evaluated once recognized on a previous chest x- ray. 05/07: Oxygenation remains severely impaired. Sustained but self terminating runs of V. tach during the night. Amiodarone stopped earlier because of pulmonary fibrotic disease but will have to restart at this time. ICD not responding appropriately to V. tach. Will interrogate. Patient remains severely ill with ongoing mild metabolic acidosis and diffuse bilateral pulmonary infiltrates consistent with pneumonia. Additionally there are multiple lung masses which appear related and are undoubtedly metastatic cancer. Objective Vital Signs / I&O: Vital Signs 05/06/18 06:43 05/06/18 07:00 05/06/18 07:15 Temperature 98.8 F Pulse Rate 104 H 84 100 H Respiratory Rate 34 H 22 14 Blood Pressure 86/50 L 101/55 L 91/52 L Pulse Oximetry 83 L 84 L 80 L 05/06/18 07:25 05/06/18 07:28 05/06/18 08:07 Temperature Pulse Rate 85 85 Respiratory Rate 14 14 14 Blood Pressure 102/57 L 94/52 L Pulse Oximetry 85 L 86 L 84 L 05/06/18 08:16 05/06/18 11:00 05/06/18 16:00 Temperature 97.5 F L Pulse Rate 85 93 H Respiratory Rate 20 19 23 Blood Pressure 112/50 L 101/55 L Pulse Oximetry 87 L 88 L 05/06/18 16:51 05/06/18 16:58 05/06/18 20:00 Temperature 98.5 F Pulse Rate 108 H 100 H Respiratory Rate 21 30 H 23 Blood Pressure 80/48 L Pulse Oximetry 89 L 05/06/18 21:48 05/06/18 21:49 05/07/18 00:00 Temperature 97.6 F Pulse Rate 95 H 97 H Respiratory Rate 22 24 22 Blood Pressure 115/56 L Pulse Oximetry 94 L 92 L 05/07/18 00:56 05/07/18 04:00 05/07/18 04:06 Temperature 99 F Pulse Rate 94 H 97 H Respiratory Rate 21 24 24 Blood Pressure 99/50 L Pulse Oximetry 93 L 94 L 93 L Intake & Output 05/06/18 05/06/18 05/07/18 06:59 18:59 06:59 Intake Total 1050 / 1050 1300 / 1300 2550 / 2550 Output Total 350 / 350 Balance 1050 / 1050 1300 / 1300 2200 / 2200 Weight 49.895 kg 58.3 kg 61.3 kg Intake: IV 1050 / 1050 1300 / 1300 2550 / 2550 NS Inj 1,000 ML @ 125 mls/hr IV 1000 / 1000 .CONT .Q8H [facility] Rx#:[id number] Alburx 5% Inj 500 ML @ 500 mls/ 500 / 500 hr IV.SIG NOW ONE Rx#:[id number] Zosyn 3.375 GM Premix 50 ML @ 50 / 50 50 / 50 50 / 50 100 mls/hr IV.SIG Q8H [facility] Rx#: [id number] NS Inj 1,000 ML @ 999 mls/hr IV 1000 / 1000 1000 / 1000 1000 / 1000 .SIG .Q1H1M [facility] Rx#:[id number] Vancomycin Inj 1,000 MG In NS 250 / 250 Inj 250 ML @ 250 mls/hr IV.SIG ONCE ONE Rx#:[id number] Output: Urine Amount (Catheter) 350 / 350 Indwelling Urethral Catheter 350 / 350 Gastric Drainage 0 / 0 Orogastric Tube 0 / 0 Other: # Bowel Movements 0 Weight On Admission 58.3 kg Result Diagrams: 05/07/18 04:34 05/07/18 04:34 Objective Remarks: - Imaging Impressions Chest X-Ray 05/06/18 04:52 CONCLUSION: Bilateral airspace disease, especially in the upper lobes with probable cavitation on the left. Differential diagnosis includes infection and neoplasm. CT pending. Chest CTA 05/06/18 05:48 CONCLUSION: 1. Worsening airspace consolidation in both lungs, especially in the left upper lobe most characteristic of worsening infection. Also worsening bilateral pleural effusions, left greater than right. 2. No evidence for pulmonary embolus. 3. Spiculated nodules also present in both upper lobes as above suspicious for neoplasm. Chest X-Ray 05/06/18 07:12 CONCLUSION: ET tube tip is just above the cruz. Worsening infiltrates Narrative: General: Thin, cachectic elderly gentleman with severe chronic rigidity of the spine. Head: Atraumatic, normal Neck: Rigidly fixed in place, orally intubated. Lungs: Diffuse bilateral rhonchi and tight wheezes. Heart: Regular rate and rhythm, no jugular venous distention. Abdomen: Mildly distended, no guarding, bowel sounds are quiet. Extremities: Tepid, adequately perfused. No peripheral edema. Neuro: Sedated for transportation from outside hospital. Unresponsive at this point. Pupils 3 mm left 2 mm right, reactive. Assessment and Plan - Problem List (1) Acute hypoxemic respiratory failure Code(s): J96.01 - Acute respiratory failure with hypoxia Status: Acute (2) Severe sepsis with acute organ dysfunction Code(s): A41.9 - Sepsis, unspecified organism; R65.20 - Severe sepsis without septic shock Status: Acute (3) Acute renal failure superimposed on stage 3 chronic kidney disease Code(s): N17.9 - Acute kidney failure, unspecified; N18.3 - Chronic kidney disease, stage 3 (moderate) Status: Acute (4) Pulmonary fibrosis Code(s): J84.10 - Pulmonary fibrosis, unspecified Status: Acute (5) Pneumonia Code(s): J18.9 - Pneumonia, unspecified organism Status: Acute (6) Ventricular tachycardia Code(s): I47.2 - Ventricular tachycardia Status: Acute - Assessment and Plan Plan: Plan: Neuro -minimize sedation. -Neurochecks. -Provide suitable analgesia. -CAT scan head looking for other metastatic lesions. Cardiovascular -Continue Lopressor following previous episodes of ventricular fibrillation -Discontinue amiodarone as underlying lung disease is possibly related -Keep mag greater than 2, potassium greater than 4 -Known coronary artery disease, continue Plavix -Restart amiodarone for sustained V-tach -Keep mag greater than 2, potassium greater than 4 -Interrogate ICD Pulmonary -Broad antibiotic coverage with vancomycin and Zosyn pending culture results -Pressure regulated volume control mechanical ventilation -Bronchodilators -Discussed with family possibility of lung biopsy should they want to persist with resuscitation -Plan diagnostic bronchoscopy when stable Renal -Underlying chronic kidney disease, avoid nephrotoxins -Follow urine output closely Heme -No evidence of bleeding -Serial white cell count determination ID -Broad antibiotic coverage with vancomycin and Zosyn. -Narrow coverage following culture results. Prophylaxis -SCDs, Pepcid for GI ulcer prophylaxis, hold chemical DVT prophylaxis pending decision about lung biopsy. Overall impression: This frail, elderly gentleman is critically ill with severe sepsis and acute organ dysfunction. The source is a bilateral pneumonia with dense consolidation. The gentleman requires mechanical ventilation which we will be unable to wean for several days. There are several masses in both lungs which undoubtedly represent metastatic malignancy. Overnight he is developed sustained ventricular tachycardia which does not appear to initiate a shock from his ICD. Critical care time 48 minutes aside from procedures. (5) Pneumonia Qualifiers: Laterality: bilateral Lung location: unspecified part of lung
[2018-05-07] MEDS ORDERED: Potassium Chloride Inj 20 MEQ/10 ML Vial IV.SIG SCH (07:00)
[2018-05-07] MEDS: Chlorhexidine 0.12% Oral Kit 15 ML UDC OROPHARYNG SCH ×2 (08:00→20:47)
[2018-05-07 08:40] LABS: VBG Base Excess -9.1 mmol/L (-2-2); VBG Blood Gas Oxygen Content 8.2 Vol % (9.0-17.0); VBG PCO2 34 mmHG (44-48); VBG PH 7.29 (7.360-7.400); VBG PO2 34 mmHG (35-40)
[2018-05-07] MEDS: Potassium Chlor 20 mEq Premix 20 MEQ/100 ML PIGGYBACK IV.SIG SCH ×2 (08:47→10:52)
--- NOTE | 2018-05-07 08:59 | P.PCN ---
Procedure: Diagnosis: Severe sepsis Procedure: Insertion right subclavian vein triple-lumen central line Narrative: Timeout performed, patient properly identified. The right chest was prepped and draped. Using a thin-walled needle the infraclavicular navicular region was infiltrated with 1% Xylocaine anesthetic. The subclavian vein was then cannulated underneath the clavicle and a wire easily advanced into the central circulation. A dilator was passed then the triple-lumen line was passed over the wire to a distance of 18 cm. 3 lm were aspirated and flushed. A StatLock was used to secure the line and a sterile dressing was applied. Chest x-ray was ordered to confirm position. Will review.
[2018-05-07] MEDS ORDERED: Aspirin 325 MG Tablet PO SCH (09:00)
--- NOTE | 2018-05-07 09:36 | XR ---
EXAM DATE: 05/07/2018 9:29 AM EDT AGE/SEX: 78 years / Male INDICATIONS: Post central line placement on right side CLINICAL DATA: This is the patient's subsequent encounter. Patient reports that signs and symptoms h ave been present for 2 days and indicates a pain score of Nonresponsive. MEDICAL/SURGICAL HISTORY: Chronic obstructive pulmonary disease. Cardiovascular disease. Hype rtension. Pacemaker. Carotid endarterectomy. Nephrectomy, right. coronary artery stent COMPARISON: [facility], CHEST 1V SINGLE AP, 05/06/2018. . FINDINGS: Single AP view the chest. Endotracheal tube remains in place. Nasogastric tube is in place with the t ip in the stomach. Right subclavian central venous catheter is now in place with the tip at the cavoa trial junction. AICD is noted. Bilateral ulnar parenchymal opacity left greater than right unchanged. No evidence of pleural effusion or pneumothorax. CONCLUSION: Right subclavian central venous catheter and nasogastric tube now in place. No evidence of pneumothor ax. Bilateral pulmonary opacity unchanged. Electronically signed by: Andrez Delatorre MD 05/07/2018 9:34 AM EDT
[2018-05-07] MEDS: Metoprolol Tartrate 25 MG Tablet PO SCH ×2 (09:54→20:44)
[2018-05-07] MEDS: Famotidine PF Inj 20 MG/2 ML Vial IV.PUSH SCH ×2 (09:55→20:52)
[2018-05-07] MEDS: Sodium Bicarbonate 8.4% Inj 150 MEQ in Water for Inj, Sterile 850 ML IV.CONT SCH ×2 (10:58→20:47)
[2018-05-07] MEDS: Senna/Docusate Sodium 8.6/50 MG Tablet PO SCH ×2 (11:05→20:52)
--- NOTE | 2018-05-07 11:46 | P.PN ---
Subjective Interval history: Critical and on Vent support with FIO2 at 90 %. Was in Ventricular tachycardia all nite and on Amiodarone and started on pressors. Physical Exam Vital signs: Vital Signs 05/06/18 16:00 05/06/18 16:51 05/06/18 16:58 Temperature 97.5 F L Pulse Rate 93 H 108 H Respiratory Rate 23 21 30 H Blood Pressure 101/55 L Pulse Oximetry 05/06/18 20:00 05/06/18 21:48 05/06/18 21:49 Temperature 98.5 F Pulse Rate 100 H 95 H Respiratory Rate 23 22 24 Blood Pressure 80/48 L Pulse Oximetry 89 L 94 L 05/07/18 00:00 05/07/18 00:56 05/07/18 04:00 Temperature 97.6 F 99 F Pulse Rate 97 H 94 H Respiratory Rate 22 21 24 Blood Pressure 115/56 L 99/50 L Pulse Oximetry 92 L 93 L 94 L 05/07/18 04:06 05/07/18 08:00 05/07/18 08:45 Temperature Pulse Rate 97 H 86 76 Respiratory Rate 24 22 25 H Blood Pressure Pulse Oximetry 93 L 94 L 05/07/18 11:30 Temperature Pulse Rate Respiratory Rate 25 H Blood Pressure Pulse Oximetry 92 L Intake & Output 05/06/18 05/07/18 05/07/18 18:59 06:59 18:59 Intake Total 1300 / 1300 3600 / 3600 400 / 400 Output Total 350 / 350 Balance 1300 / 1300 3250 / 3250 400 / 400 Weight 58.3 kg 61.3 kg Intake: IV 1300 / 1300 3600 / 3600 400 / 400 NS Inj 1,000 ML @ 125 mls/hr IV 1999 / 1999 .CONT .Q8H [facility] Rx#:[id number] Alburx 5% Inj 500 ML @ 500 mls/ 500 / 500 hr IV.SIG NOW ONE Rx#:[id number] Cordarone Inj 150 MG In D5W Inj 100 / 100 97 ML @ 600 mls/hr IV.SIG ONCE ONE Rx#:[id number] Magnesium Sulfate Inj 2 GM In 100 / 100 NS Inj 96 ML @ 50 mls/hr IV.SIG ONCE ONE Rx#:[id number] Zosyn 3.375 GM Premix 50 ML @ 50 / 50 100 / 100 100 mls/hr IV.SIG Q8H [facility] Rx#: [id number] KCl 20 mEq Premix Inj 20 meq In 200 / 200 100 ml @ 50 mls/hr IV.SIG Q2H [facility] Rx#:[id number] NS Inj 1,000 ML @ 999 mls/hr IV 1000 / 1000 1000 / 1000 .SIG .Q1H1M [facility] Rx#:[id number] Vancomycin Inj 1,000 MG In NS 250 / 250 Inj 250 ML @ 250 mls/hr IV.SIG ONCE ONE Rx#:[id number] Output: Urine Amount (Catheter) 350 / 350 Indwelling Urethral Catheter 350 / 350 Gastric Drainage 0 / 0 Orogastric Tube 0 / 0 Other: # Bowel Movements 0 Weight On Admission 58.3 kg GENERAL: Sedated on vent support, Elderly Frail W/M SKIN: cool and dry. HEAD: Normocephalic. EYES: No scleral icterus. No injection or drainage. NECK: Supple, trachea midline. No JVD or lymphadenopathy. CARDIOVASCULAR: Irregular and muffled. RESPIRATORY: Breath sounds equal bilaterally. Wheezes scattered. GASTROINTESTINAL: Abdomen soft, nondistended. MUSCULOSKELETAL: No cyanosis, or edema. BACK: without obvious deformity. Neuro : sedated. - Urinary Catheter Management Indwelling Urethral Catheter Cath placed during this visit: yes Reason for continuing: Hourly intake/output Insertion date: 05/06/18 Insertion time: 07:40 Results - Labs CBC & Chem 7: 05/07/18 04:34 05/07/18 04:34 Laboratory Results - last 24 hr 05/06/18 05/07/18 05/07/18 16:12 04:34 04:34 WBC 24.5 H RBC 3.90 L Hgb 10.0 L D Hct 31.5 L MCV 80.8 MCH 25.6 L MCHC 31.6 L RDW 18.6 H Plt Count 333 D MPV 7.1 Prelim Diff (Auto) [employer] Neut % (Auto) 96.5 H Lymph % (Auto) 1.1 L [place] % (Auto) 2.1 Eos % (Auto) 0.2 Baso % (Auto) 0.1 Neut # (Auto) 23.6 H Lymph # (Auto) 0.3 L [place] # (Auto) 0.5 Eos # (Auto) 0.1 Baso # (Auto) 0.0 WBC Differential . Differential Comment Auto diff final PT 14.7 H INR 1.5 Puncture Site Patient Temperature VBG pH VBG pCO2 VBG pO2 VBG HCO3 VBG O2 Saturation VBG O2 Content VBG Base Excess VBG Carboxyhemoglobin VBG Methemoglobin Hemoglobin O2 Delivery Device Vent Setting Inspired O2 Critical Value Sodium Potassium Chloride Carbon Dioxide Anion Gap BUN Creatinine Estimated GFR Random Glucose Lactic Acid 2.8 H Calcium Prot Corrected Calcium Total Bilirubin AST ALT Alkaline Phosphatase Total Protein Albumin Prealbumin 05/07/18 05/07/18 04:34 08:30 WBC RBC Hgb Hct MCV MCH MCHC RDW Plt Count MPV Prelim Diff (Auto) Neut % (Auto) Lymph % (Auto) [place] % (Auto) Eos % (Auto) Baso % (Auto) Neut # (Auto) Lymph # (Auto) [place] # (Auto) Eos # (Auto) Baso # (Auto) WBC Differential Differential Comment PT INR Puncture Site Central line Patient Temperature 98.6 VBG pH 7.29 L* VBG pCO2 34 L VBG pO2 34 L VBG HCO3 16 L VBG O2 Saturation 60 L VBG O2 Content 8.2 L VBG Base Excess -9.1 L VBG Carboxyhemoglobin 1.0 VBG Methemoglobin 1.3 Hemoglobin 9.8 L O2 Delivery Device Ventilator Vent Setting Prvc/ac Inspired O2 90 Critical Value Yes Sodium 148 H D Potassium 3.8 Chloride 119 H D Carbon Dioxide 17.5 L Anion Gap 12 BUN 23 H Creatinine 1.48 H Estimated GFR 46 L Random Glucose 82 Lactic Acid Calcium 7.4 L* D Prot Corrected Calcium 8.4 L Total Bilirubin 0.6 AST 93 H ALT 44 Alkaline Phosphatase 65 Total Protein 5.3 L D Albumin 1.7 L Prealbumin 7 L Microbiology 05/06/18 04:48 Blood - Peripheral Aerobic Blood Culture - Preliminary No growth in 1 day 05/06/18 04:48 Blood - Peripheral Anaerobic Blood Culture - Preliminary No growth in 1 day 05/06/18 04:55 Blood - Peripheral Aerobic Blood Culture - Preliminary No growth in 1 day 05/06/18 04:55 Blood - Peripheral Anaerobic Blood Culture - Preliminary No growth in 1 day 05/06/18 05:26 Sputum - Expectorated Sputum Gram Stain - Final - Imaging Impressions Chest X-Ray 05/07/18 00:00 CONCLUSION: Right subclavian central venous catheter and nasogastric tube now in place. No evidence of pneumothorax. Bilateral pulmonary opacity unchanged. Assessment and Plan - Plan Impression: 1. sepsis with shock. 2. Bilateral pulmonary infiltrates. 3. lung nodules , multiple. 4. pulmonary Fibrosis. 5. Ventricular Tachycardia. 6. COPD Plan : 1. Continue vent support. 2. Wean Pressors 3. Continue antibiotics per ID 4. Amiodarone Drip. 5. Trach lavage and suction prn. 6. Atrovent nebs q6h PRN 7. CXR,CBC,BMP
--- NOTE | 2018-05-07 11:55 | P.CONPAL ---
Consult Service: Palliative Care Requesting Physician: Dirk Law Reason for Consult: a. To assist with evaluation and management of symptoms including: pain; dyspnea; generalized weakness b. To assist medical decision maker(s) with: better understanding of current medical conditions; weighing benefits/burdens of medical treatment options; making medical treatment decisions. Primary Care Provider: Luis Jackson History of Present Illness History of Present Illness: Mr. 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 According to EMS, the patient' s 02 saturation on room air was 60%, increasing to 83% on 02 at 4 L/m via nasal cannula. Mr. Duarte has a significant cardiac and pulmonary history. Cardiac history * SC in 2005 with 3 stents * Cath in 2012 showed stents open in RCA with chronic total LAD * Spect nuclear scan in 07/2015 showed 20-25% EF * Echocardiogram 10/2015 showed 20-25% EF * Defibrillator implanted 2015 * Has had runs of V Tach and V fib * V fib arrest in 2015 with porlogned hospital stay and PEG tube placement * Amiodarone started Pulmonary history * 60 pack year history of smoking * Known COPD -- emphysema * Interstitial lung disease attributed to amiodarone therapy * Obstructive sleep apnea The patient was hospitalized at [facility] 05/02/18 through 05/05/18 having presented with a 2 week history of increasing generalized weakness and fatigue on top of chronic fatigue/sob from his heart and lung disease. The patient had dental problems with tooth pain and had drastically decreased nutritional intake. He had undergone multiple dental extractions about three to 4 weeks prior to presentation and had done poorly since then. He had completed a 7 day course of amoxicillin associated with those extractions. He developed diarrhea. He had become anemic. A couple of months before presentation he was able to ride a bike 1/4 mile and walk 1/4 mile. Over the weeks leading up to the 05/02/18 admission he had needed a cane, then a walker, and then was barely getting out of the house. CT imaging of the chest on 05/02/18 revealed : * Multiple masslike areas of consolidative opacity in both lungs * Large dense area of consolidation with air bronchograms in the left upper lobe * Mild pretracheal adenopathy * Coronary artery calcifications CT of the abdomen and pelvis on 05/02/2018 showed the following: * Nonspecific, nonobstructive bowel gas pattern possibly representing ileus or gastroenteritis. * Mild to moderate diverticulosis with no definite focal inflammatory change * Degenerative changes of both hips It was felt that the patient had an acute pneumonia, but there were also concerns for metastatic disease. The patient was placed on intravenous antibiotics. Cardiology and medical oncology were consulted. Oncology recommended a pulmonary evaluation with bronchoscopy. However, the patient told the oncologist in the presence of his daughter, that if he had a diagnosis of underlying lung cancer he would not want to pursue any disease directed therapeutic interventions. He explained that he had been gradually weakening over the past few years, he had lost his 2 years ago, and he did not wish to suffer. Cardiology felt the patient had a poor prognosis and would not be a candidate for aggressive cardiac interventions. He felt the risk of bronchoscopy was at least moderate. He wondered if bronchoscopy results would impact overall prognosis. He thought palliative care might be appropriate. The patient's hemoglobin dropped during the hospitalization. He was transfused with a unit of packed red blood cells. Speech therapy evaluated the patient and found out that he had some dysphagia requiring a mechanical soft diet with nectar thickened fluids. The patient improved somewhat clinically with antibiotics and diuresis. Patient decided that he would like to go to rehab to try and get stronger before considering any other tests. He was discharged on 05/05/18. As noted above, the patient was transferred back to the hospital the next day. The patient was verbal when he initially arrived at the emergency department. He complained of shortness of breath, cough producing yellow phlegm. He denied fevers or chills. Denied hemoptysis or substernal chest pressure. The patient was hypotensive with blood pressure in the 80s over 30s. The patient received fluid resuscitation and started on IV antibiotics. Initial diagnostic testing revealed the following: * ABG showed pH 7.42; PCO2 30; PO2 61; bicarbonate 19; base excess -4.7 on nonrebreather mask at 13 L a minute * Chemistry profile remarkable for a BUN of 22; creatinine 1.3; GFR 54; lactic acid 3.3 * Liver function tests remarkable for an albumin of 1.7 * Cardiac serology showed total CK 173; CK-MB 5.1; troponin 1.01 * CBC showed WBC 41.3; hemoglobin 13.5; platelet count 597 MCV 80.1 * Coagulation profile showed PT 12.3; INR 1.2; PTT 29.1 * CT angiogram showed no evidence of pulmonary embolus. It also revealed worsening airspace consolidation in both lungs but especially worse in the left upper lobe. There were also worsening bilateral pleural effusions left greater than right. Nodules in both lungs were noted to be spiculated. The patient decompensated while in the emergency department. Dyspnea significantly worsened. The emergency department physician discussed the patient's critical status with the patient's daughter who is at the bedside. The daughter in turn called the patient's son. A joint decision was made to go forward with intubation and mechanical ventilation. The patient has been seen by critical care medicine and pulmonology. The patient has had sustained but self terminating runs of V. tach overnight. Amiodarone had been stopped because of his pulmonary fibrotic disease but it was felt necessary to restart. As the patient's ICD was not responding appropriately to the V. tach and order was placed to interrogate the device. At the time of my visit, patient will open his eyes to voice and exam. He is unable to follow commands. He withdraws all extremities to noxious stimuli. . Function/Cognitive Trajectory: See above. ROS 12 Part ROS performed with available family. Negative except for the following: * Pain from ankylosing spondylitis. Only regularly used acetaminophen * Intermittent pedal edema * SOB with exertion * Diarrhea * Depression * Generalized weakness * Fatigue * Weight loss * Anorexia Family History * Mother found down in her 80s -- unknown cause of * Father of heart disease * One brother of heart disease * 2 sisters of unknown cause * 1 sister alive and well * No known family history of cancer , anklyosing spondylitis . Review of Systems All other systems reviewed negative except as stated in HPI PMFSH - History History Provided By: Family Member, Medical Record, Discovery Guide / EMT - Medical History Medical History: Medical History (Last Reviewed 05/06/18 @ 04:49 by Luna Licona RN) Ankylosing spondylitis COPD (chronic obstructive pulmonary disease) Coronary artery disease Enlarged prostate High cholesterol History of common carotid artery stent placement History of left common carotid artery stent placement History of unilateral nephrectomy History of ventricular fibrillation Hypertension Hypothyroid Obstructive sleep apnea Peripheral arterial disease Tobacco abuse - Surgical History Surgical History: Surgical History (Last Reviewed 05/06/18 @ 04:49 by Luna Licona RN) History of cardiac catheterization History of coronary artery stent placement History of nephrectomy History of sinus surgery Presence of combination internal cardiac defibrillator (ICD) and pacemaker - Family History Family History: Family History (Last Updated 05/03/18 @ 09:09 by Toby Laura MD) Father Myocardial infarction - Tobacco History Second Hand Smoke Exposure: No Tobacco Use In Past 30 Days: No Smoking Status: Former smoker Tobacco Type: Cigarettes Packs Per Day: 1 Years Smoked: 60 Smoking End Date: 10/31/2017 - Alcohol History How Often Do You Have a Drink Containing Alcohol: Never - Substance Use History Substance History: No History of Abuse - Travel History Recent Travel in the [place] Within the Last 8 Weeks: No Recent Travel Out of the Country Within the Last 8 Weeks: No - Immunization History Tetanus Immunization: >5 Years Hx Influenza Vaccine This Season: No Medications and Allergies Active Medications: Active Medications Al Hydroxide/Mg Hydroxide (Milk Of Magnliss Liq) 30 ml PO Q12H PRN PRN Reason: Mild Constipation Albuterol (Duoneb Neb ([facility])) 1 ampul NEB Q6HR NEB [facility] Last Admin: 05/07/18 08:35 Dose: 1 ampul Albuterol (Albuterol Concentrated Neb) 2.5 mg NEB BLENDER / COOK [facility] Stop: 05/10/18 19:14 Aspirin (Ecotrin) 81 mg PO DAILY [facility] Last Admin: 05/07/18 09:55 Dose: 81 mg Atorvastatin Calcium (Lipitor) 80 mg PO DAILY [facility] Last Admin: 05/07/18 09:54 Dose: 80 mg Bisacodyl (Dulcolax Supp) 10 mg RECTAL DAILY PRN PRN Reason: SEVERE CONSITIPATION Chlorhexidine Gluconate (Peridex 0.12% Oral Kit) 15 ml OROPHARYNG BID@0800, 2000 [facility] Last Admin: 05/07/18 08:00 Dose: 15 ml Chlorhexidine Gluconate (Chlorhexidine 2% Cloth) 3 pack TOPICAL DAILY@0400 [facility] Stop: 05/12/18 03:59 Last Admin: 05/07/18 04:53 Dose: 3 pack Chlorhexidine Gluconate (Chlorhexidine 2% Cloth) 3 pack TOPICAL DAILY@0400 PRN PRN Reason: Extra cloth needed Stop: 05/12/18 03:59 Chlorhexidine Gluconate (Chlorhexidine 2% Cloth) 3 pack TOPICAL DAILY@0400 IL[facility] Stop: 05/12/18 03:59 Last Admin: 05/07/18 04:38 Dose: Not Given Chlorhexidine Gluconate (Chlorhexidine 2% Cloth) 3 pack TOPICAL DAILY@0400 PRN PRN Reason: Extra cloth needed Stop: 05/12/18 03:59 Clopidogrel Bisulfate (Plavix) 75 mg PO DAILY [facility] Last Admin: 05/07/18 09:54 Dose: 75 mg Famotidine (Pepcid Pf Inj) 10 mg IV.PUSH Q12HR [facility] Last Admin: 05/07/18 09:55 Dose: 10 mg Fentanyl Citrate (Fentanyl Inj) 50 mcg IV PUSH Q1H PRN PRN Reason: Pain scale 6-10, &/or sedation Last Admin: 05/06/18 19:45 Dose: 50 mcg Sodium Chloride (Ns Inj) 1,000 mls @ 0 mls/hr IV.SIG BOLUS [facility] Last Infusion: 05/06/18 06:43 Dose: Infused Sodium Chloride (Ns Inj) 1,000 mls @ 0 mls/hr IV.SIG BOLUS [facility] Last Infusion: 05/06/18 08:26 Dose: Infused Sodium Chloride (Ns Inj) 1,000 mls @ 75 mls/hr IV.CONT .[id number] [facility] Last Admin: 05/07/18 06:07 Dose: 125 mls/hr Piperacillin/Tazobactam/Dextrose (Zosyn 3.375 Gm Premix) 50 mls @ 100 mls/hr IV.SIG Q8H [facility] Last Infusion: 05/07/18 05:30 Dose: Infused Phenylephrine HCl 80 mg/ (Dextrose) 500 mls @ 15 mls/hr IV.CONT TITRATE PRN; Protocol PRN Reason: Per Protocol Amiodarone HCl 450 mg/ (Dextrose) 250 mls @ 33.33 mls/hr IV.CONT TITRATE PRN; Protocol PRN Reason: Per Protocol Sodium Bicarbonate 150 meq/ (Sterile Water) 1,000 mls @ 100 mls/hr IV.CONT .Q10H [facility] Last Admin: 05/07/18 10:58 Dose: 100 mls/hr Lactulose (Lactulose Liq) 30 ml PO DAILY PRN PRN Reason: SEVERE CONSITIPATION Levothyroxine Sodium (Synthroid) 75 mcg PO DAILY@0600 [facility] Last Admin: 05/07/18 05:38 Dose: 75 mcg Metoprolol Tartrate (Lopressor) 25 mg PO BID [facility] Last Admin: 05/07/18 09:54 Dose: 25 mg Midazolam HCl (Versed Inj) 2 mg IV.PUSH Q2H PRN PRN Reason: ANXIETY Last Admin: 05/07/18 09:25 Dose: 2 mg Ondansetron HCl (Zofran Inj) 4 mg IV.PUSH Q6H PRN PRN Reason: NAUSEA OR VOMITING Pharmacy Profile Note (Vancomycin Consult Pharmacy) 1 each OTHER UNSCH PRN PRN Reason: Pharmacy to dose Senna/Docusate Sodium (Anca-Colace) 1 tab PO BID [facility] Last Admin: 05/07/18 11:05 Dose: Not Given Sennosides (Senokot) 17.2 mg PO Q12H PRN PRN Reason: Moderate Constipation Sodium Chloride (Ns Flush) 2 ml IV.FLUSH BID [facility] Last Admin: 05/07/18 11:05 Dose: 2 ml Sodium Chloride (Ns Flush) 2 ml IV.FLUSH PRN PRN PRN Reason: FLUSH AFTER USING IV ACCESS Terbutaline Sulfate (Brethine Inj) 1 mg SQ UNSCH PRN PRN Reason: For Extravasation Allergies Allergy/AdvReac Type Severity Reaction Status Date / Time codeine Allergy Intermediate Hallucinati Verified 05/06/18 04:51 ons anesthetic Allergy Severe Hallucinati Uncoded 05/06/18 04:51 ons Home Medications Medication Instructions Recorded Confirmed Type amiodarone 200 mg PO BID 05/02/18 05/06/18 History aspirin [Aspir-Low] 81 mg PO DAILY 05/02/18 05/06/18 History atorvastatin 80 mg PO HS 05/02/18 05/06/18 History buspirone 10 mg PO BID 05/02/18 05/06/18 History clopidogrel 75 mg PO DAILY 05/02/18 05/06/18 History ipratropium-albuterol 3 ml INHALATION Q6-8H PRN 05/02/18 05/06/18 History losartan 100 mg PO HS 05/02/18 05/06/18 History metoprolol tartrate 25 mg PO DAILY 05/02/18 05/06/18 History levothyroxine 75 mcg PO DAILY 05/06/18 05/06/18 History Advance Directives Living Will: No Healthcare Surrogate: No Power of Light Industrial: Yes Power of Light Industrial Name: Son Reji is reportedly the financial POA. No health care POA. Documented care wishes: No written documentation of health care goals preferences. . Today's verbally stated goals: Unable to verbally state health care goals/preferences. . Family/friends goals: Son (Reji) and daughter (Norma) are still hoping for patient to undergo bronchoscopy so they can know for sure if this is cancer. The don't want patient to have chest compressions or external shock. If he wont' be stable enough to undergo bronchoscopy or bronchsocopy confirms cancer, they would want to transition to "comfort measures only." . Ethical and Legal Issues: Patient is inacpacitated to make his own health care decisions. At this point, there appears to be a low probability that he will recover capacity to do so. . Physical Exam Vital Signs: Vital Signs - 24 hr 05/06/18 16:00 05/06/18 16:51 05/06/18 16:58 Temperature 97.5 F L Pulse Rate 93 H 108 H Respiratory Rate 23 21 30 H Blood Pressure 101/55 L Pulse Oximetry 05/06/18 20:00 05/06/18 21:48 05/06/18 21:49 Temperature 98.5 F Pulse Rate 100 H 95 H Respiratory Rate 23 22 24 Blood Pressure 80/48 L Pulse Oximetry 89 L 94 L 05/07/18 00:00 05/07/18 00:56 05/07/18 04:00 Temperature 97.6 F 99 F Pulse Rate 97 H 94 H Respiratory Rate 22 21 24 Blood Pressure 115/56 L 99/50 L Pulse Oximetry 92 L 93 L 94 L 05/07/18 04:06 05/07/18 08:00 05/07/18 08:45 Temperature Pulse Rate 97 H 86 76 Respiratory Rate 24 22 25 H Blood Pressure Pulse Oximetry 93 L 94 L I&O: Intake & Output 09/1205/06/18 05/07/18 05/08/18 06:59 06:59 06:59 06:59 Intake Total 1050 / 1050 4900 / 4900 100 / 100 Output Total 350 / 350 Balance 1050 / 1050 4550 / 4550 100 / 100 Weight 49.895 kg 61.3 kg Physical Exam: CONSTITUTIONAL/GENERAL: Thin,pale, sedated, mechanically ventilated, minimally responsive in SICU bed. Intermittent shivering. TUBES/LINES/DRAINS: Right subclavian central line; orotracheal tube; orogastric tube; implanted defibrillator left chest; jorgensen catheter; peripheral iv's SKIN: No jaundice, rashes, or lesions. Ecchymoses on upper extremities. No wounds seen anteriorly. Skin temperature appropriate. Not diaphoretic. HEAD: Atraumatic. Normocephalic. EYES: Pupils equal and round and reactive. Extraocular motions intact. No scleral icterus. No injection or drainage. Fundi not examined. ENT: Unable to assess hearing. Nose without bleeding or purulent drainage. Throat without visible erythema, exudates, masses, or lesions though challenging to adequately evaluate due to intubations. . NECK: Trachea midline. No palpable thyroid enlargement or nodularity. CARDIOVASCULAR: Regular rate and rhythm without murmurs, gallops, or rubs. No JVD. Peripheral pulses symmetric. RESPIRATORY/CHEST: Symmetric, unlabored respirations on vent. Breath sounds equal bilaterally but diminished throughout. No wheezes, rales, or rhonchi. GASTROINTESTINAL: Abdomen soft, non-tender, nondistended. No hepato-splenomegaly , or palpable masses. No guarding. Bowel sounds hypoactive. GENITOURINARY: Without palpable bladder distension. Jorgensen catheter in place. MUSCULOSKELETAL: Extremities without clubbing, cyanosis, or edema. No joint tenderness or effusion noted. No mottling. LYMPHATICS: No palpable cervical or supraclavicular adenopathy. NEUROLOGICAL: Opens eyes briefly to voice/exam but does not interact. Withdraws to noxious stimuli. Moves all extremities. PSYCHIATRIC: Unable to assess due to level of responsiveness. . Diagnostic Tests Laboratory: Laboratory Results - last 72 hr 05/06/18 05/06/18 05/06/18 04:55 04:55 04:55 CBC w Diff Slide review pending WBC 41.3 H RBC 5.15 Hgb 13.5 Hct 41.2 MCV 80.1 MCH 26.2 L MCHC 32.7 RDW 18.0 H Plt Count 597 H MPV 7.2 Prelim Diff (Auto) Neut % (Auto) 95.7 H Lymph % (Auto) 1.3 L Robeson % (Auto) 2.7 Eos % (Auto) 0.1 Baso % (Auto) 0.2 Neut # (Auto) 39.6 H Lymph # (Auto) 0.5 L Robeson # (Auto) 1.1 H Eos # (Auto) 0.0 Baso # (Auto) 0.1 WBC Differential . Diff Scan Auto diff confirmed Differential Comment . Platelet Estimate High H Platelet Morphology Clumped H PT 12.3 H INR 1.2 APTT 29.1 Puncture Site Patient Temperature O2 Saturation ABG pH ABG pCO2 ABG pO2 ABG HCO3 ABG O2 Content ABG Base Excess ABG Methemoglobin Govind Test VBG pH VBG pCO2 VBG pO2 VBG HCO3 VBG O2 Saturation VBG O2 Content VBG Base Excess VBG Carboxyhemoglobin VBG Methemoglobin Hemoglobin Carboxyhemoglobin O2 Delivery Device Liter Flow Vent Setting Inspired O2 Critical Value Sodium Potassium Chloride Carbon Dioxide Anion Gap BUN Creatinine Estimated GFR Random Glucose Lactic Acid Calcium Prot Corrected Calcium Total Bilirubin AST ALT Alkaline Phosphatase Total Creatine Kinase 173 CK-MB (CK-2) 5.1 H Troponin I 1.10 H* Total Protein Albumin Prealbumin 05/06/18 05/06/18 05/06/18 04:55 04:55 05:05 CBC w Diff WBC RBC Hgb Hct MCV MCH MCHC RDW Plt Count MPV Prelim Diff (Auto) Neut % (Auto) Lymph % (Auto) Robeson % (Auto) Eos % (Auto) Baso % (Auto) Neut # (Auto) Lymph # (Auto) Robeson # (Auto) Eos # (Auto) Baso # (Auto) WBC Differential Diff Scan Differential Comment Platelet Estimate Platelet Morphology PT INR APTT Puncture Site Right radial Patient Temperature 98.6 O2 Saturation 89 L* ABG pH 7.42 ABG pCO2 30 L ABG pO2 61 ABG HCO3 19 L ABG O2 Content 15.6 ABG Base Excess -4.7 L ABG Methemoglobin 1.3 Govind Test Y VBG pH VBG pCO2 VBG pO2 VBG HCO3 VBG O2 Saturation VBG O2 Content VBG Base Excess VBG Carboxyhemoglobin VBG Methemoglobin Hemoglobin 12.6 Carboxyhemoglobin 1.5 O2 Delivery Device Nrb Liter Flow 13.00 Vent Setting Inspired O2 Critical Value Yes Sodium 138 Potassium 4.2 Chloride 106 Carbon Dioxide 22.0 Anion Gap 10 BUN 22 H Creatinine 1.30 Estimated GFR 54 L Random Glucose 99 Lactic Acid 3.3 H Calcium 8.5 Prot Corrected Calcium Total Bilirubin 0.4 AST 68 H ALT 57 Alkaline Phosphatase 100 Total Creatine Kinase CK-MB (CK-2) Troponin I Total Protein 6.8 D Albumin 1.7 L Prealbumin 05/06/18 05/06/18 05/06/18 07:24 07:54 07:59 CBC w Diff WBC RBC Hgb Hct MCV MCH MCHC RDW Plt Count MPV Prelim Diff (Auto) Neut % (Auto) Lymph % (Auto) Robeson % (Auto) Eos % (Auto) Baso % (Auto) Neut # (Auto) Lymph # (Auto) Robeson # (Auto) Eos # (Auto) Baso # (Auto) WBC Differential Diff Scan Differential Comment Platelet Estimate Platelet Morphology PT INR APTT Puncture Site Left radial Cancelled Patient Temperature 98.6 Cancelled O2 Saturation 82 L* Cancelled ABG pH 7.12 L* Cancelled ABG pCO2 52 H* Cancelled ABG pO2 66 Cancelled ABG HCO3 16 L* Cancelled ABG O2 Content 13.5 Cancelled ABG Base Excess -11.7 L Cancelled ABG Methemoglobin 1.3 Cancelled Govind Test Present Cancelled VBG pH VBG pCO2 VBG pO2 VBG HCO3 VBG O2 Saturation VBG O2 Content VBG Base Excess VBG Carboxyhemoglobin VBG Methemoglobin Hemoglobin 11.7 L Cancelled Carboxyhemoglobin 0.9 Cancelled O2 Delivery Device Ventilator Cancelled Liter Flow Cancelled Vent Setting Cancelled Inspired O2 100 Cancelled Critical Value Yes Cancelled Sodium Potassium Chloride Carbon Dioxide Anion Gap BUN Creatinine Estimated GFR Random Glucose Lactic Acid 4.2 H* Calcium Prot Corrected Calcium Total Bilirubin AST ALT Alkaline Phosphatase Total Creatine Kinase CK-MB (CK-2) Troponin I Total Protein Albumin Prealbumin 05/06/18 05/06/18 05/07/18 11:22 16:12 04:34 CBC w Diff WBC 24.5 H RBC 3.90 L Hgb 10.0 L D Hct 31.5 L MCV 80.8 MCH 25.6 L MCHC 31.6 L RDW 18.6 H Plt Count 333 D MPV 7.1 Prelim Diff (Auto) [employer]er Neut % (Auto) 96.5 H Lymph % (Auto) 1.1 L Robeson % (Auto) 2.1 Eos % (Auto) 0.2 Baso % (Auto) 0.1 Neut # (Auto) 23.6 H Lymph # (Auto) 0.3 L Robeson # (Auto) 0.5 Eos # (Auto) 0.1 Baso # (Auto) 0.0 WBC Differential . Diff Scan Differential Comment Auto diff final Platelet Estimate Platelet Morphology PT INR APTT Puncture Site Left radial Patient Temperature 98.6 O2 Saturation 88 L* ABG pH 7.16 L* ABG pCO2 51 H* ABG pO2 73 ABG HCO3 17 L ABG O2 Content 16.2 ABG Base Excess -9.9 L ABG Methemoglobin 1.2 Govind Test Present VBG pH VBG pCO2 VBG pO2 VBG HCO3 VBG O2 Saturation VBG O2 Content VBG Base Excess VBG Carboxyhemoglobin VBG Methemoglobin Hemoglobin 13.1 Carboxyhemoglobin 0.7 O2 Delivery Device Ventilator Liter Flow Vent Setting Inspired O2 100 Critical Value Yes Sodium Potassium Chloride Carbon Dioxide Anion Gap BUN Creatinine Estimated GFR Random Glucose Lactic Acid 2.8 H Calcium Prot Corrected Calcium Total Bilirubin AST ALT Alkaline Phosphatase Total Creatine Kinase CK-MB (CK-2) Troponin I Total Protein Albumin Prealbumin 05/07/18 05/07/18 05/07/18 04:34 04:34 08:30 CBC w Diff WBC RBC Hgb Hct MCV MCH MCHC RDW Plt Count MPV Prelim Diff (Auto) Neut % (Auto) Lymph % (Auto) Robeson % (Auto) Eos % (Auto) Baso % (Auto) Neut # (Auto) Lymph # (Auto) Robeson # (Auto) Eos # (Auto) Baso # (Auto) WBC Differential Diff Scan Differential Comment Platelet Estimate Platelet Morphology PT 14.7 H INR 1.5 APTT Puncture Site Central line Patient Temperature 98.6 O2 Saturation ABG pH ABG pCO2 ABG pO2 ABG HCO3 ABG O2 Content ABG Base Excess ABG Methemoglobin Govind Test VBG pH 7.29 L* VBG pCO2 34 L VBG pO2 34 L VBG HCO3 16 L VBG O2 Saturation 60 L VBG O2 Content 8.2 L VBG Base Excess -9.1 L VBG Carboxyhemoglobin 1.0 VBG Methemoglobin 1.3 Hemoglobin 9.8 L Carboxyhemoglobin O2 Delivery Device Ventilator Liter Flow Vent Setting Prvc/ac Inspired O2 90 Critical Value Yes Sodium 148 H D Potassium 3.8 Chloride 119 H D Carbon Dioxide 17.5 L Anion Gap 12 BUN 23 H Creatinine 1.48 H Estimated GFR 46 L Random Glucose 82 Lactic Acid Calcium 7.4 L* D Prot Corrected Calcium 8.4 L Total Bilirubin 0.6 AST 93 H ALT 44 Alkaline Phosphatase 65 Total Creatine Kinase CK-MB (CK-2) Troponin I Total Protein 5.3 L D Albumin 1.7 L Prealbumin 7 L Result Diagrams: 05/07/18 04:34 05/07/18 04:34 Microbiology: Microbiology 05/06/18 04:48 Aerobic Blood Culture - Preliminary Blood - Peripheral No growth in 1 day Anaerobic Blood Culture - Preliminary No growth in 1 day 05/06/18 04:55 Aerobic Blood Culture - Preliminary Blood - Peripheral No growth in 1 day Anaerobic Blood Culture - Preliminary No growth in 1 day 05/06/18 05:26 Gram Stain - Final Sputum - Expectorated Sputum Imaging: Chest X-Ray 05/06/18 04:52. CONCLUSION: Bilateral airspace disease, especially in the upper lobes with probable cavitation on the left. Differential diagnosis includes infection and neoplasm. CT pending. Chest CTA 05/06/18 05:48 CONCLUSION: 1. Worsening airspace consolidation in both lungs, especially in the left upper lobe most characteristic of worsening infection. Also worsening bilateral pleural effusions, left greater than right. 2. No evidence for pulmonary embolus. 3. Spiculated nodules also present in both upper lobes as above suspicious for neoplasm. Chest X-Ray 05/06/18 07:12 CONCLUSION: ET tube tip is just above the cruz. Worsening infiltrates Chest X-Ray 05/07/18 00:00 CONCLUSION: Right subclavian central venous catheter and nasogastric tube now in place. No evidence of pneumothorax. Bilateral pulmonary opacity unchanged. . Procedures: Intubation/mechanical ventilation Right subclavian central line . Patient/Family Conference Present at Family Conference: Daughter (Norma) Son (Reji) . Family Conference Time: 30 Family Conference Location: Telephone Issues Discussed: * Palliative care role, purpose, approach * Additional medical, psychosocial, and spiritual history * Patients general health, functional status, and cognitive changes in the months leading up to the current hospitalization * Family understanding of the current medical problems * Family understanding of prognosis * Patients goals of care as best understood from conversations and/or values * Current medical treatment options and benefits/burdens of those options * Likely scenarios comparing ongoing aggressive care with a transition to comfort measures only * Questions answered to the best of my ability . Assessment and Plan - Disease Oriented Problem List (1) Lung mass Comment: Probable metastatic disease of unknown primary (2) Aspiration pneumonia (3) Hypoxemia (4) Pulmonary fibrosis (5) Acute hypoxemic respiratory failure (6) Severe sepsis with acute organ dysfunction (7) Ventricular tachycardia Pertinent Non-Medical Issues: Psychosocial: Originally from [place]. Has lived in [place] for 6 years. 9th grade education. 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 No experience. once for 52 years. 2 years ago. Two biological daughters -- one in a MVA in 1983. Norma lives locally and lives with patient. There are two adopted sons -- Reji and Steve. Reji lives locally; Steve lives in [place]. Spiritual: No local sabrina affiliation. Self identifies as Jew. Legal: No advance directive. Family reports Reji has financial POA but NOT health care POA. Ethical issues impacting care: Patient is incapacitated to make his own health care decisions. It is unlikely at this point that he will regain capacity to do so. . Important Contacts: Norma (daughter and co-proxy) [phone] Reji (adopted son and co-proxy) [phone] Steve (adopted son and co-proxy) . Prognosis: Patient has imaging and clinical presentation strongly suggstive of metastatic cancer. This is on top of his multiple medical problems including COPD, interstitial lung disease; ischemic cardiomyopathy; ankylosing spondylitis; s/p nephrectomy; peripheral vascular disease; etc. Patient is critically ill, vent dependent, and having signficiant dysrhythmias. He has dysphagia. It is appearing less likely that he will get well enough to undergo bronchoscopy. Patient has said he would NOT want cancer directed treatments like chemo or radiation should cancer be confirmed. Prognosis is poor. Patient is a candidate for hospice care at such time that goals become primarily comfort oriented. . Code Status: Alternative Code (No chest compressions; No external shock) Plan: == Code Status: Per conversation with son and daughter (Jacqueline) on , they want ALTERNATE CODE status with NO CHEST COMPRESSIONS and NO EXTERNAL SHOCK. == Decision Making: Patient is currently incapacitated to make his own healthcare decisions. At this point it appears unlikely that he will regain capacity to do so. There is no written designation of healthcare surrogate. Healthcare decision making would fall, under the [place] statutes hierarchy, to the patient's biological daughter and 2 adopted sons. == Goals of medical treatment: Family is still hoping that patient will be well enough to undergo bronchoscopy. They feel it was important to their father to know if he had cancer or not even though he has indicated he would not want cancer directed treatment such as radiation or chemotherapy. Family is quite aware how critically ill the patient is. They do not want him to undergo chest compressions or external shock. Per our conversation of 05/07/18, they understand they may need to move forward with withdrawal of life support should the diagnosis of cancer be made, or patient shows no signs of improvement and he never becomes stable enough to undergo the bronchoscopy. == Symptoms * Pain: Patient has many years of pain attributed to his ankylosing spondylitis. He had not been eating opiate analgesics and was mostly controlling the pain with acetaminophen. In addition to the pain from the ankylosing spondylitis, current sources of pain might include orotracheal and orogastric intubations; Jorgensen catheter; restraints; vascular access lines. Patient has orders for fentanyl and Versed. These appear to be adequate. No additional recommendations at this time. * Dyspnea patient's dyspnea is multifactorial. He has a significant ischemic cardiomyopathy on top of COPD and interstitial lung disease. He has an acute pneumonia and probable metastatic cancer in the lungs. He has also been having anemia. Dyspnea is currently managed with mechanical ventilation. Air hunger is adequately managed with the fentanyl and Versed. No further recommendations at this time * Dysphagia: Patient is not awake enough at this time to tolerate feedings by mouth. * Generalized weakness and fatigue * Depression == I have spoken in person with Dr. Law and notified him of the ALTERNATE CODE STATUS and my conversation with the 2 children. == Palliative care will continue to follow to assist with symptom management and further clarify goals of medical treatment as the clinical course evolves. . Appreciation Thank you for the opportunity to participate in the care of Matt Duarte. Attestation Attestation: To help prompt me to consider important information that might be impacting today's encounter and assessment, information from prior notes written by myself or my colleagues may have been "brought forward" into today's note. My signature on this note, however, is an attestation that I personally performed the exam, history, and/or decision-making noted today, and, unless otherwise indicated, the interactions with patient, family, and staff as well as the review of records all occurred today. I also attest that the listed assessment and stated plan reflect my best clinical judgment today based on the combination of historical information, prior notes, and today's exam/ interactions. When time spent is documented, it refers only to time spent today by the signer, or if indicated, combined time spent today by collaborating physician/nurse practitioner. .
--- NOTE | 2018-05-07 11:57 | MB ---
cc: Kd Bradford MD DATE: 05/07/2018 REASON FOR CONSULTATION: Evaluation of automatic implantable cardioverter-defibrillator working. HISTORY OF PRESENT ILLNESS: Matt Duarte is a 78-year-old man admitted to the hospital with pneumonia, possible lung cancer. He has been noted to have multiple runs of V-tach; some of them polymorphic and I was asked to have his defibrillator assessed. Patient can provide no history as he is on a ventilator. Apparently, he was recently hospitalized and had lung infiltrates and sent home on oral antibiotics, but comes in now with worsening chest x-ray. CT scan showing upper lobe masses, cannot exclude metastatic cancer. Currently receiving full support. He is on a ventilator. Telemetry shows multiple runs of ventricular tachycardia, some of which are polymorphic. I can see evidence for burst pacing at least; on one of these it was successful, but we will have the [employer] rep come in and do a more complete evaluation. CURRENT MEDICATIONS: He is receiving IV magnesium, IV potassium. He is on an amiodarone drip to gain control of the arrhythmia. He is on metoprolol 25 b.i.d. PAST MEDICAL HISTORY: 1. Severe ischemic heart disease. He has total occlusion of the LAD with collaterals. Last catheterization 02/17/2018 showed that his proximal distal right coronary artery stents were patent; mid vessel had 40% disease, circumflex artery was calcified with no significant stenosis, the proximal LAD was occluded with [id number] collaterals. His last nuclear stress test was in 2014, showed only fixed defects. 2. [employer] AICD. 3. Ankylosing spondylitis. 4. History of previous bowel obstruction in 2013. 5. Carotid disease. 6. Chronic obstructive pulmonary disease. 7. Gastroesophageal reflux. 8. Peripheral arterial disease with right subclavian stent. 9. Previous tobacco use. 10. Ventricular tachycardia and VF in the past. PAST SURGICAL HISTORY: Includes defibrillator, previous coronary stents 2003, left carotid stent, right nephrectomy surgery, right carotid endarterectomy and stent of the right subclavian artery. ALLERGIES: INCLUDE JANES INHIBITORS, CODEINE. FAMILY HISTORY: Positive for NC in the father. SOCIAL HISTORY: Previous smoker. Resides in a group home. PHYSICAL EXAMINATION: GENERAL: Reveals an elderly white male, supine in bed on the ventilator. He is thin; currently in sinus rhythm on the monitor. HEENT: Atraumatic, normocephalic. NECK: Shows no JVD; do not appreciated any bruits. CHEST: Shows somewhat diminished breath sounds with bilateral rhonchi. CARDIAC: S1, S2. Regular rate and rhythm. No murmurs or gallops. ABDOMEN: Soft. EXTREMITIES: Reveal no clubbing, cyanosis or edema. IMAGING: Chest x-ray and chest CT are markedly abnormal. DIAGNOSTIC DATA: EKG shows sinus rhythm, intraventricular conduction delay, old inferior myocardial infarction, nonspecific ST-T wave changes, cannot exclude ischemia. LABORATORY DATA: Labs are charted. IMPRESSION: A very ill patient with severe pneumonia and possible metastatic cancer. He has a known ischemic cardiomyopathy with a [employer] defibrillator. It is not clear how effective his antitachycardia pacing is. We will have the [employer] rep come in to do a full evaluation and we may need to do some adjustments; currently on IV amiodarone. He is getting magnesium and potassium to try to help stabilize the rhythm. Further therapy to be determined. MD LESIA Jimenes/naima , 11:03 AM , 11:12 AM
[2018-05-07] MEDS: fentaNYL Citrate Inj 100 MCG/2 ML Ampul IV PUSH PRN ×2 (14:32→17:30)
[2018-05-07] MEDS ORDERED: Vancomycin Inj 1,000 MG in Sodium Chlor 0.9% Inj 250 ML IV.SIG SCH (16:00)
[2018-05-07] MEDS: Sod Chloride 0.9% Inj 1,000 ML IV.SIG SCH (16:04)
[2018-05-07] MEDS: fentaNYL 10 mcg/mL Premix Drip 2,500 MCG/250 ML BAG IV.SIG PRN (19:25)
[2018-05-07] MEDS: Phenylephrine Inj 80 MG in Dextrose 5% in Water Inj 492 ML IV.CONT PRN ×2 (20:46)
[2018-05-08] MEDS: Phenylephrine Inj 80 MG in Dextrose 5% in Water Inj 492 ML IV.CONT PRN ×4 (01:20→11:52)
[2018-05-08 03:38] LABS: Baso % (Auto) 0.2 % (0.0-2.0); Eos # (Auto) 0.1 th/mm3 (0.0-0.4); Eos % (Auto) 0.4 % (0.0-4.0); Hematocrit 31.3 % (39.0-51.0); Hemoglobin 10.1 gm/dL (13.0-17.0); Lymph # (Auto) 0.4 th/mm3 (1.0-4.8); Lymph % (Auto) 1.2 % (9.0-44.0); Mean Corpuscular HGB Conc 32.3 % (32.0-36.0); Mean Corpuscular Hemoglobin 25.2 pg (27.0-34.0); Mean Corpuscular Volume 78.1 fL (80.0-100.0); Mean Platelet Volume 6.9 fL (7.0-11.0); Mono # (Auto) 0.7 th/mm3 (0.0-0.9); Mono % (Auto) 2.3 % (0.0-8.0); Neut # (Auto) 29.5 th/mm3 (1.8-7.7); Neut % (Auto) 95.9 % (16.0-70.0); Platelet Count 411 th/mm3 (150-450); Red Blood Count 4.01 mil/mm3 (4.50-5.90); Red Cell Distribution Width 19.7 % (11.6-17.2); White Blood Count 30.8 th/mm3 (4.0-11.0)
[2018-05-08 04:01] LABS: Calcium 7.6 mg/dL (8.5-10.1); Carbon Dioxide 23.9 meq/L (21.0-32.0); Magnesium 1.7 mg/dL (1.5-2.5); Phosphorus 3.4 mg/dL (2.5-4.9); Potassium 3.4 meq/L (3.5-5.1)
[2018-05-08 04:10] LABS: Lymphocytes 1 % (9-44); Monocytes 1 % (0-8); Myelocytes 1 % (0-0)
[2018-05-08 04:11] LABS: Ovalocytes 1+; Platelet Morphology Normal (Normal)
[2018-05-08] MEDS: Chlorhexidine Gluconate 2% 1 Pack (2 Cloths) TOPICAL SCH ×2 (05:44)
[2018-05-08] MEDS: Oral Hygiene Kit OROPHARYNG SCH ×2 (05:44→14:33)
[2018-05-08] MEDS: Piperacil/Tazo 3.375 GM Premix 50 ML IV.SIG SCH ×2 (05:55→14:33)
[2018-05-08] MEDS: Levothyroxine 75 MCG Tablet PO SCH (05:56)
--- NOTE | 2018-05-08 06:01 | XR ---
EXAM DATE: 05/08/2018 5:32 AM EDT AGE/SEX: 78 years / Male INDICATIONS: Pneumonia. CLINICAL DATA: This is the patient's subsequent encounter. Patient reports that signs and symptoms h ave been present for 4 - 6 days and indicates a pain score of Nonresponsive. MEDICAL/SURGICAL HISTORY: . Chronic obstructive pulmonary disease. Cardiovascular disease. Hyp ertension. . Pacemaker. Carotid endarterectomy. Nephrectomy, right. coronary artery stent COMPARISON: [facility], CHEST 1V SINGLE AP, 05/07/2018. . FINDINGS: Stable ETT, NGT, right subclavian central line. Minimally improved diffuse interstitial and airspace opacities in the upper and lower lung zones. Cardiomediastinal contours are within normal limits. Rem ainder of exam is unchanged. CONCLUSION: 1. Stable tubes and lines, as above. 2. Improving bilateral interstitial and alveolar opacities. Electronically signed by: Ayaan Gibbs MD 05/08/2018 6:00 AM EDT
[2018-05-08] MEDS: Sodium Bicarbonate 8.4% Inj 150 MEQ in Water for Inj, Sterile 850 ML IV.CONT SCH (06:23)
[2018-05-08] MEDS ORDERED: Potassium Chloride Inj 20 MEQ/10 ML Vial IV.SIG ONE (09:00)
--- NOTE | 2018-05-08 09:19 | P.PNCC ---
Subjective Subjective Remarks/Hospital Course: This 78-year-old gentleman with sides in a local long-term. He was recently discharged from [facility] following evaluation for bilateral lung infiltrates and spiculated nodules. He was sent home on oral antibiotics for a pneumonia but returns a day later with white count of 41,000 and severe respiratory distress. Chest x-ray and CAT scan confirmed dense consolidation involving the left upper and lower lobe and multiple segments of the right lung the infiltrative pattern is clearly 1 of a pneumonia. The underlying interstitial disease may well be related to long-term amiodarone use. The nodules with spiculation appear more like multiple lung primaries but the odds are that they represent co-primary malignancies or metastatic disease from some other source. He was quite unstable in the emergency department at [place] and required orotracheal intubation for transfer. On arrival to the ICU here his oxygen saturation was 84% on 100% FiO2 and 10 of PEEP. Discussions were apparently held with multiple family members prior to intubation and all agreed that they would want him intubated and to remain full CODE STATUS at this time. As far as I can figure the nodules have not been further evaluated once recognized on a previous chest x-ray. 05/07: Oxygenation remains severely impaired. Sustained but self terminating runs of V. tach during the night. Amiodarone stopped earlier because of pulmonary fibrotic disease but will have to restart at this time. ICD not responding appropriately to V. tach. Will interrogate. Patient remains severely ill with ongoing mild metabolic acidosis and diffuse bilateral pulmonary infiltrates consistent with pneumonia. Additionally there are multiple lung masses which appear related and are undoubtedly cancer. 05/08: Though the infiltrates in the lung on the right side have improved the left-sided infiltrate is more consolidated. He continues to require 100% oxygen to maintain saturations of at least 88%. The the underlying pulmonary fibrosis severely impairs gas exchange. The internal defibrillator has been reprogrammed to shock sooner because of his frequent runs of ventricular tachycardia and ventricular fibrillation. Because of hemodynamic instability and ventricular arrhythmias we have elected not to perform a bronchoscopy. The chest CAT scan shows 2 clearly delineated upper lobe lung masses, one left side 1 right. They are spiculated and look like primary malignancies. Further, there are pathologic size nodes in the carinal region and the right paratracheal region. His underlying ejection fraction of 20% further complicates his care. He is not tolerating elevated PEEP and we have exhausted all the common manipulations to improve oxygenation. I anticipate further instability and continued deterioration. Objective Vital Signs / I&O: Vital Signs 05/07/18 11:30 05/07/18 12:00 05/07/18 15:34 Temperature 97.9 F Pulse Rate 74 72 Respiratory Rate 25 H 20 22 Blood Pressure 93/53 L Pulse Oximetry 92 L 93 L 100 05/07/18 16:00 05/07/18 20:00 05/07/18 20:59 Temperature 98.2 F 97.5 F L Pulse Rate 70 86 85 Respiratory Rate 23 28 H 25 H Blood Pressure 88/52 L 134/64 Pulse Oximetry 96 88 L 05/07/18 21:00 05/07/18 21:26 05/08/18 00:00 Temperature 98.6 F Pulse Rate 86 74 Respiratory Rate 20 20 Blood Pressure 111/57 L Pulse Oximetry 90 L 98 05/08/18 01:01 05/08/18 03:53 05/08/18 04:00 Temperature 98.4 F Pulse Rate 71 Respiratory Rate 20 20 21 Blood Pressure 122/57 L Pulse Oximetry 98 97 98 05/08/18 08:44 05/08/18 09:02 Temperature Pulse Rate 77 Respiratory Rate 17 17 Blood Pressure Pulse Oximetry 85 L Intake & Output 05/07/18 05/08/18 05/08/18 18:59 06:59 18:59 Intake Total 1949 2600 / 2600 Output Total 1050 / 1050 650 / 650 Balance 900 / 900 1949 / 1949 Weight 65.6 kg Intake: IV 1949 2600 / 2600 Cordarone Inj 450 MG In D5W Inj 250 / 250 241 ML @ 1 MG/MIN 33.33 mls/hr IV.CONT TITRATE PRN Rx#: [id number] Neosynephrine Inj 80 MG In D5W 500 / 500 Inj 492 ML @ 40 MCG/MIN 15 mls/ hr IV.CONT TITRATE PRN Rx#: [id number] NS Inj 1,000 ML @ 75 mls/hr IV. 1000 / 1000 CONT .[id number] ILYA Rx#:[id number] Sodium Bicarbonate 8.4% Inj 150 2000 / 2000 MEQ In Sterile Water for Inj 850 ML @ 100 mls/hr IV.CONT . Q10H ILYA Rx#:[id number] Cordarone Inj 150 MG In D5W Inj 100 / 100 97 ML @ 600 mls/hr IV.SIG ONCE ONE Rx#:[id number] Magnesium Sulfate Inj 2 GM In 100 / 100 NS Inj 96 ML @ 50 mls/hr IV.SIG ONCE ONE Rx#:[id number] Zosyn 3.375 GM Premix 50 ML @ 50 / 50 100 / 100 100 mls/hr IV.SIG Q8H ILYA Rx#: [id number] KCl 20 mEq Premix Inj 20 meq In 200 / 200 100 ml @ 50 mls/hr IV.SIG Q2H ILYA Rx#:[id number] Vancomycin Inj 1,000 MG In NS 250 / 250 Inj 250 ML @ 250 mls/hr IV.SIG Q24H ILYA Rx#:[id number] Output: Urine Amount (Catheter) 1050 / 1050 650 / 650 Indwelling Urethral Catheter 1050 / 1050 650 / 650 Gastric Drainage 0 / 0 Orogastric Tube 0 / 0 Other: # Bowel Movements 0 Result Diagrams: 05/08/18 03:28 05/08/18 03:28 Objective Remarks: - Imaging Impressions Chest X-Ray 05/06/18 04:52 CONCLUSION: Bilateral airspace disease, especially in the upper lobes with probable cavitation on the left. Differential diagnosis includes infection and neoplasm. CT pending. Chest CTA 05/06/18 05:48 CONCLUSION: 1. Worsening airspace consolidation in both lungs, especially in the left upper lobe most characteristic of worsening infection. Also worsening bilateral pleural effusions, left greater than right. 2. No evidence for pulmonary embolus. 3. Spiculated nodules also present in both upper lobes as above suspicious for neoplasm. Chest X-Ray 05/06/18 07:12 CONCLUSION: ET tube tip is just above the cruz. Worsening infiltrates Narrative: General: Thin, cachectic elderly gentleman with severe chronic rigidity of the spine. Head: Atraumatic, normal Neck: Rigidly fixed in place, orally intubated. Lungs: Diffuse bilateral rhonchi and moderate wheezes. Crackles are heard throughout. Air entry is acceptable. Heart: Regular rate and rhythm, neck veins are full but not tensely distended.. Abdomen: Mildly distended, no guarding, bowel sounds are few. Extremities: Tepid, adequately perfused. No peripheral edema. Neuro: Sedated for ventilator synchrony, opens eyes to stimulation. Pupils 3 mm left 2 mm right, reactive. Assessment and Plan - Problem List (1) Acute hypoxemic respiratory failure Code(s): J96.01 - Acute respiratory failure with hypoxia Status: Acute (2) Severe sepsis with acute organ dysfunction Code(s): A41.9 - Sepsis, unspecified organism; R65.20 - Severe sepsis without septic shock Status: Acute (3) Acute renal failure superimposed on stage 3 chronic kidney disease Code(s): N17.9 - Acute kidney failure, unspecified; N18.3 - Chronic kidney disease, stage 3 (moderate) Status: Acute (4) Pulmonary fibrosis Code(s): J84.10 - Pulmonary fibrosis, unspecified Status: Acute (5) Pneumonia Code(s): J18.9 - Pneumonia, unspecified organism Status: Acute (6) Ventricular tachycardia Code(s): I47.2 - Ventricular tachycardia Status: Acute - Assessment and Plan Plan: Plan: Neuro -minimize sedation. -Neurochecks. -Provide suitable analgesia. -CAT scan head looking for other metastatic lesions. Remains too unstable for transport to scanner Cardiovascular -Continue Lopressor following previous episodes of ventricular fibrillation -Discontinue amiodarone as underlying lung disease is possibly related -Keep mag greater than 2, potassium greater than 4 -Known coronary artery disease, continue Plavix -Restart amiodarone for sustained V-tach -Keep mag greater than 2, potassium greater than 4 -Interrogate ICD, reprogrammed for shorter interval to shock Pulmonary -Broad antibiotic coverage with vancomycin and Zosyn pending culture results -Pressure regulated volume control mechanical ventilation -Bronchodilators -Discussed with family possibility of lung biopsy should they want to persist with resuscitation -Plan diagnostic bronchoscopy when stable, far too unstable at this point. Renal -Underlying chronic kidney disease, avoid nephrotoxins -Follow urine output closely Heme -No evidence of bleeding -Serial white cell count determination ID -Broad antibiotic coverage with vancomycin and Zosyn. -Narrow coverage following culture results. Prophylaxis -SCDs, Pepcid for GI ulcer prophylaxis, hold chemical DVT prophylaxis pending decision about lung biopsy. Overall impression: This frail, elderly gentleman is critically ill with severe sepsis and acute organ dysfunction. The source is a bilateral pneumonia with dense consolidation. The gentleman requires mechanical ventilation which we are unable to wean. There are spiculated masses in both lungs which undoubtedly represent primary or metastatic malignancy. He continues to require internal shock by his ICD for non-terminating runs of ventricular tachycardia. Survival for more than a few days is unlikely. Critical care time 50 minutes aside from procedures. (5) Pneumonia Qualifiers: Laterality: bilateral Lung location: unspecified part of lung
[2018-05-08] MEDS ORDERED: HYDROmorphone PF Inj 2 MG/ML Vial IV.PUSH PRN ×3 (09:20→15:18)
[2018-05-08] MEDS ORDERED: Mag Sulf 1 gm/100 ml Premix 100 ML IV.SIG ONE (09:30)
[2018-05-08] MEDS ORDERED: Potassium Chlor 40 mEq Premix 40 MEQ/100 ML PIGGYBACK IV.SIG ONE (09:30)
[2018-05-08] MEDS: fentaNYL 10 mcg/mL Premix Drip 2,500 MCG/250 ML BAG IV.SIG PRN (10:55)
[2018-05-08] MEDS: Chlorhexidine 0.12% Oral Kit 15 ML UDC OROPHARYNG SCH (11:07)
[2018-05-08] MEDS: Metoprolol Tartrate 25 MG Tablet PO SCH (11:08)
[2018-05-08] MEDS: Famotidine PF Inj 20 MG/2 ML Vial IV.PUSH SCH (11:09)
[2018-05-08] MEDS: Senna/Docusate Sodium 8.6/50 MG Tablet PO SCH (11:09)
--- NOTE | 2018-05-08 15:25 | P.PN ---
Subjective Interval history: He is critical and on 100 % FIO2 . On pressors and Maximum vent support. Family made him DNR CT findings suggest Lung masses and possible malignancy Physical Exam Vital signs: Vital Signs 05/07/18 15:34 05/07/18 16:00 05/07/18 20:00 Temperature 98.2 F 97.5 F L Pulse Rate 72 70 86 Respiratory Rate 22 23 28 H Blood Pressure 88/52 L 134/64 Pulse Oximetry 100 96 88 L 05/07/18 20:59 05/07/18 21:00 05/07/18 21:26 Temperature Pulse Rate 85 86 Respiratory Rate 25 H 20 Blood Pressure Pulse Oximetry 90 L 05/08/18 00:00 05/08/18 01:01 05/08/18 03:53 Temperature 98.6 F Pulse Rate 74 Respiratory Rate 20 20 20 Blood Pressure 111/57 L Pulse Oximetry 98 98 97 05/08/18 04:00 05/08/18 08:00 05/08/18 08:44 Temperature 98.4 F 97.5 F L Pulse Rate 71 74 Respiratory Rate 21 20 17 Blood Pressure 122/57 L 107/53 L Pulse Oximetry 98 85 L 85 L 05/08/18 09:02 05/08/18 09:26 05/08/18 12:00 Temperature 97.8 F Pulse Rate 77 86 74 Respiratory Rate 17 13 Blood Pressure 93/54 L Pulse Oximetry 05/08/18 12:49 Temperature Pulse Rate Respiratory Rate 15 Blood Pressure Pulse Oximetry 80 L Intake & Output 05/07/18 05/08/18 05/08/18 18:59 06:59 18:59 Intake Total 1949 3850 / 3850 750 / 750 Output Total 1050 / 1050 650 / 650 Balance 900 / 900 3200 / 3200 750 / 750 Weight 65.6 kg Intake: IV 1949 3850 / 3850 750 / 750 Cordarone Inj 450 MG In D5W Inj 250 / 250 250 / 250 241 ML @ 1 MG/MIN 33.33 mls/hr IV.CONT TITRATE PRN Rx#: [id number] Neosynephrine Inj 80 MG In D5W 500 / 500 500 / 500 Inj 492 ML @ 40 MCG/MIN 15 mls/ hr IV.CONT TITRATE PRN Rx#: [id number] NS Inj 1,000 ML @ 75 mls/hr IV. 1000 / 1000 CONT .[id number] ILYA Rx#:[id number] Sodium Bicarbonate 8.4% Inj 150 2000 / 2000 MEQ In Sterile Water for Inj 850 ML @ 100 mls/hr IV.CONT . Q10H ILYA Rx#:[id number] Cordarone Inj 150 MG In D5W Inj 100 / 100 97 ML @ 600 mls/hr IV.SIG ONCE ONE Rx#:[id number] Magnesium Sulfate Inj 2 GM In 100 / 100 NS Inj 96 ML @ 50 mls/hr IV.SIG ONCE ONE Rx#:[id number] Zosyn 3.375 GM Premix 50 ML @ 50 / 50 100 / 100 100 mls/hr IV.SIG Q8H ILYA Rx#: [id number] KCl 20 mEq Premix Inj 20 meq In 200 / 200 100 ml @ 50 mls/hr IV.SIG Q2H ILYA Rx#:[id number] NS Inj 1,000 ML @ Wide Open IV. 1000 / 1000 SIG BOLUS ILYA Rx#:[id number] Vancomycin Inj 1,000 MG In NS 250 / 250 Inj 250 ML @ 250 mls/hr IV.SIG Q24H COUNT INCLUDES THE [facility] Rx#:[id number] fentaNYL 10 mcg/mL Premix Drip 250 / 250 2,500 mcg In 250 ml @ 50 MCG/HR 5 mls/hr IV.SIG TITRATE PRN Rx #:[id number] Output: Urine Amount (Catheter) 1050 / 1050 650 / 650 Indwelling Urethral Catheter 1050 / 1050 650 / 650 Gastric Drainage 0 / 0 Orogastric Tube 0 / 0 Other: # Bowel Movements 0 GENERAL: Sedated elderly W/M on the vent SKIN: cool and dry. HEAD: Normocephalic. EYES: No scleral icterus. No injection or drainage. NECK: Supple, trachea midline. No JVD or lymphadenopathy. CARDIOVASCULAR: Regular rate and rhythm without murmurs, gallops, or rubs. RESPIRATORY: Breath sounds equal bilaterally. Coarse wheezes and crackles scattered. + accessory muscle use. GASTROINTESTINAL: Abdomen soft, , nondistended. MUSCULOSKELETAL: Mild cyanosis, no edema. - Urinary Catheter Management Indwelling Urethral Catheter Cath placed during this visit: yes Reason for continuing: Hourly intake/output Insertion date: 05/06/18 Insertion time: 07:40 Results - Labs CBC & Chem 7: 05/08/18 03:28 05/08/18 03:28 Laboratory Results - last 24 hr 05/08/18 05/08/18 03:28 03:28 WBC 30.8 H RBC 4.01 L Hgb 10.1 L Hct 31.3 L MCV 78.1 L MCH 25.2 L MCHC 32.3 RDW 19.7 H Plt Count 411 MPV 6.9 L Prelim Diff (Auto) Slide review pending Neut % (Auto) 95.9 H Lymph % (Auto) 1.2 L [place] % (Auto) 2.3 Eos % (Auto) 0.4 Baso % (Auto) 0.2 Neut # (Auto) 29.5 H Lymph # (Auto) 0.4 L [place] # (Auto) 0.7 Eos # (Auto) 0.1 Baso # (Auto) 0.0 WBC Differential Manual diff final Seg Neuts % (Manual) 95 H Band Neuts % (Manual) 2 Lymphocytes % (Manual) 1 L Monocytes % (Manual) 1 Myelocytes % (Man) 1 H Abs Neuts (Manual) 30.2 H Differential Comment . Platelet Estimate High H Platelet Morphology Normal Ovalocytes 1+ H Sodium 143 Potassium 3.4 L Chloride 109 H D Carbon Dioxide 23.9 Anion Gap 10 BUN 24 H Creatinine 1.59 H Estimated GFR 42 L Random Glucose 103 Calcium 7.6 L Phosphorus 3.4 Magnesium 1.7 Microbiology 05/06/18 05:26 Sputum - Expectorated Sputum Gram Stain - Final 05/06/18 05:26 Sputum - Expectorated Sputum Sputum Culture - Final Moderate growth normal respiratory serenity 05/06/18 04:48 Blood - Peripheral Aerobic Blood Culture - Preliminary No growth in 2 days 05/06/18 04:48 Blood - Peripheral Anaerobic Blood Culture - Preliminary No growth in 2 days 05/06/18 04:55 Blood - Peripheral Aerobic Blood Culture - Preliminary No growth in 2 days 05/06/18 04:55 Blood - Peripheral Anaerobic Blood Culture - Preliminary No growth in 2 days - Imaging Impressions Chest X-Ray 05/08/18 00:00 CONCLUSION: 1. Stable tubes and lines, as above. 2. Improving bilateral interstitial and alveolar opacities. Assessment and Plan - Assessment (1) Pulmonary fibrosis Code(s): J84.10 - Pulmonary fibrosis, unspecified Status: Acute (2) CAP (community acquired pneumonia) Code(s): J18.9 - Pneumonia, unspecified organism Status: Acute (3) Diarrhea Code(s): R19.7 - Diarrhea, unspecified Status: Acute (4) Hypothyroid Code(s): E03.9 - Hypothyroidism, unspecified Status: Acute (5) Single kidney Code(s): Z90.5 - Acquired absence of kidney Status: Acute (6) Generalized weakness Code(s): R53.1 - Weakness Status: Acute (7) Aspiration pneumonia Code(s): J69.0 - Pneumonitis due to inhalation of food and vomit Status: Acute (8) Lung mass Code(s): R91.8 - Other nonspecific abnormal finding of lung field Status: Acute (9) Hypoxemia Code(s): R09.02 - Hypoxemia Status: Acute - Plan Impression: 1. sepsis with shock. 2. Bilateral pulmonary infiltrates. 3. lung nodules , multiple. 4. pulmonary Fibrosis. 5. Ventricular Tachycardia. 6. COPD Plan : 1. Continue vent support.Wean FIO2 2. Wean Pressors 3. Continue antibiotics per ID 4. Amiodarone Drip. 5. Trach lavage and suction prn. 6. Atrovent nebs q6h PRN 7. Family at bedside ,D/W family.
--- NOTE | 2018-05-08 16:56 | P.DS ---
Date of admission: 05/06/18 06:02 Primary care physician: Luis Jackson Attending physician on discharge: Dirk Law Brief History from admission: This 78-year-old gentleman with sides in a local usp. He was recently discharged from [facility] following evaluation for bilateral lung infiltrates and nodules. He was sent home on oral antibiotics for a pneumonia but returns a day later with white count of 41,000 and severe respiratory distress. Chest x-ray and CAT scan confirmed dense consolidation involving the left upper and lower lobe and multiple segments of the right lung the infiltrative pattern is clearly 1 of a pneumonia. The underlying interstitial disease may well be related to long-term amiodarone use. The nodules with spiculation appear more like multiple lung primaries but the odds are that they represent metastatic disease from some other source. He was quite unstable in the emergency department at [place] and required orotracheal intubation for transfer. On arrival to the ICU here his oxygen saturation was 84% on 100% FiO2 and 10 of PEEP. Discussions were apparently held with multiple family members prior to intubation and all agreed that they would want him intubated and to remain full CODE STATUS at this time. As far as I can figure the nodules have not been further evaluated once recognized on a previous chest x- ray. 05/07: Oxygenation remains severely impaired. Sustained but self terminating runs of V. tach during the night. Amiodarone stopped earlier because of pulmonary fibrotic disease but will have to restart at this time. ICD not responding appropriately to V. tach. Will interrogate. Patient remains severely ill with ongoing mild metabolic acidosis and diffuse bilateral pulmonary infiltrates consistent with pneumonia. Additionally there are multiple lung masses which appear related and are undoubtedly cancer. 05/08: Though the infiltrates in the lung on the right side have improved the left-sided infiltrate is more consolidated. He continues to require 100% oxygen to maintain saturations of at least 88%. The the underlying pulmonary fibrosis severely impairs gas exchange. The internal defibrillator has been reprogrammed to shock sooner because of his frequent runs of ventricular tachycardia and ventricular fibrillation. Because of hemodynamic instability and ventricular arrhythmias we have elected not to perform a bronchoscopy. The chest CAT scan shows 2 clearly delineated upper lobe lung masses, one left side 1 right. They are spiculated and look like primary malignancies. Further, there are pathologic size nodes in the carinal region and the right paratracheal region. His underlying ejection fraction of 20% further complicates his care. He is not tolerating elevated PEEP and we have exhausted all the common manipulations to improve oxygenation. I anticipate further instability and continued deterioration. Patient update on day of discharge: 1645 hours: The family arrived and requested that we make the patient a full DNR and discontinue vasoactive substances. They are all quite adamant that we use enough pain medication and sedation to assure that he is comfortable. They understand that he will shortly without vasopressor support and their primary concern is that he be allowed to go peacefully and without struggling. He at 1634 hrs. on May 08, 2018 with his family at his bedside. The family had been well prepared by the palliative care service. They expressed their appreciation for the care by the staff. I spoke briefly with them and they are electrician wiring following the . Following cardiac standstill the patient was extubated and the ventilator discontinued. DS: Diagnosis - Discharge Diagnosis (1) Acute hypoxemic respiratory failure Status: Acute (2) Severe sepsis with acute organ dysfunction Status: Acute (3) Acute renal failure superimposed on stage 3 chronic kidney disease Status: Acute (4) Pulmonary fibrosis Status: Acute (5) Pneumonia Status: Acute (6) Ventricular tachycardia Status: Acute DS: Summary Hospital Course: This 78-year-old gentleman with sides in a local usp. He was recently discharged from [facility] following evaluation for bilateral lung infiltrates and spiculated nodules. He was sent home on oral antibiotics for a pneumonia but returns a day later with white count of 41,000 and severe respiratory distress. Chest x-ray and CAT scan confirmed dense consolidation involving the left upper and lower lobe and multiple segments of the right lung the infiltrative pattern is clearly 1 of a pneumonia. The underlying interstitial disease may well be related to long-term amiodarone use. The nodules with spiculation appear more like multiple lung primaries but the odds are that they represent co-primary malignancies or metastatic disease from some other source. He was quite unstable in the emergency department at [place] and required orotracheal intubation for transfer. On arrival to the ICU here his oxygen saturation was 84% on 100% FiO2 and 10 of PEEP. Discussions were apparently held with multiple family members prior to intubation and all agreed that they would want him intubated and to remain full CODE STATUS at this time. As far as I can figure the nodules have not been further evaluated once recognized on a previous chest x-ray. 05/07: Oxygenation remains severely impaired. Sustained but self terminating runs of V. tach during the night. Amiodarone stopped earlier because of pulmonary fibrotic disease but will have to restart at this time. ICD not responding appropriately to V. tach. Will interrogate. Patient remains severely ill with ongoing mild metabolic acidosis and diffuse bilateral pulmonary infiltrates consistent with pneumonia. Additionally there are multiple lung masses which appear related and are undoubtedly cancer. 05/08: Though the infiltrates in the lung on the right side have improved the left-sided infiltrate is more consolidated. He continues to require 100% oxygen to maintain saturations of at least 88%. The the underlying pulmonary fibrosis severely impairs gas exchange. The internal defibrillator has been reprogrammed to shock sooner because of his frequent runs of ventricular tachycardia and ventricular fibrillation. Because of hemodynamic instability and ventricular arrhythmias we have elected not to perform a bronchoscopy. The chest CAT scan shows 2 clearly delineated upper lobe lung masses, one left side 1 right. They are spiculated and look like primary malignancies. Further, there are pathologic size nodes in the carinal region and the right paratracheal region. His underlying ejection fraction of 20% further complicates his care. He is not tolerating elevated PEEP and we have exhausted all the common manipulations to improve oxygenation. I anticipate further instability and continued deterioration. - Time Spent with Patient Total time spent providing and/or coordinating discharge services: 50 minutes Greater than 30 minutes - Quality: VTE Deep Vein Thrombosis/Pulmonary Embolism Present on Admission: No Exam Vital signs: Vital Signs 05/07/18 20:00 05/07/18 20:59 05/07/18 21:00 Temperature 97.5 F L Pulse Rate 86 85 Respiratory Rate 28 H 25 H 20 Blood Pressure 134/64 Pulse Oximetry 88 L 90 L 05/07/18 21:26 05/08/18 00:00 05/08/18 01:01 Temperature 98.6 F Pulse Rate 86 74 Respiratory Rate 20 20 Blood Pressure 111/57 L Pulse Oximetry 98 98 05/08/18 03:53 05/08/18 04:00 05/08/18 08:00 Temperature 98.4 F 97.5 F L Pulse Rate 71 74 Respiratory Rate 20 21 20 Blood Pressure 122/57 L 107/53 L Pulse Oximetry 97 98 85 L 05/08/18 08:44 05/08/18 09:02 05/08/18 09:26 Temperature Pulse Rate 77 86 Respiratory Rate 17 17 Blood Pressure Pulse Oximetry 85 L 05/08/18 12:00 05/08/18 12:49 Temperature 97.8 F Pulse Rate 74 Respiratory Rate 13 15 Blood Pressure 93/54 L Pulse Oximetry 80 L Intake & Output 05/07/18 05/08/18 05/08/18 18:59 06:59 18:59 Intake Total 1949 / 1949 3850 / 3850 750 / 750 Output Total 1050 / 1050 650 / 650 Balance 900 / 900 3200 / 3200 750 / 750 Weight 65.6 kg Intake: IV 1949 / 1949 3850 / 3850 750 / 750 Cordarone Inj 450 MG In D5W Inj 250 / 250 250 / 250 241 ML @ 1 MG/MIN 33.33 mls/hr IV.CONT TITRATE PRN Rx#: [id number] Neosynephrine Inj 80 MG In D5W 500 / 500 500 / 500 Inj 492 ML @ 40 MCG/MIN 15 mls/ hr IV.CONT TITRATE PRN Rx#: [id number] NS Inj 1,000 ML @ 75 mls/hr IV. 1000 / 1000 CONT .[id number] ILYA Rx#:[id number] Sodium Bicarbonate 8.4% Inj 150 2000 / 2000 MEQ In Sterile Water for Inj 850 ML @ 100 mls/hr IV.CONT . Q10H ILYA Rx#:[id number] Cordarone Inj 150 MG In D5W Inj 100 / 100 97 ML @ 600 mls/hr IV.SIG ONCE ONE Rx#:[id number] Magnesium Sulfate Inj 2 GM In 100 / 100 NS Inj 96 ML @ 50 mls/hr IV.SIG ONCE ONE Rx#:[id number] Zosyn 3.375 GM Premix 50 ML @ 50 / 50 100 / 100 100 mls/hr IV.SIG Q8H ILYA Rx#: [id number] KCl 20 mEq Premix Inj 20 meq In 200 / 200 100 ml @ 50 mls/hr IV.SIG Q2H ILYA Rx#:[id number] NS Inj 1,000 ML @ Wide Open IV. 1000 / 1000 SIG BOLUS ILYA Rx#:[id number] Vancomycin Inj 1,000 MG In NS 250 / 250 Inj 250 ML @ 250 mls/hr IV.SIG Q24H ILYA Rx#:[id number] fentaNYL 10 mcg/mL Premix Drip 250 / 250 2,500 mcg In 250 ml @ 50 MCG/HR 5 mls/hr IV.SIG TITRATE PRN Rx #:[id number] Output: Urine Amount (Catheter) 1050 / 1050 650 / 650 Indwelling Urethral Catheter 1050 / 1050 650 / 650 Gastric Drainage 0 / 0 Orogastric Tube 0 / 0 Other: # Bowel Movements 0 Narrative: . Results Procedures completed during hospitalization: Intubation and mechanical ventilation Interrogation of AICD Insertion of central venous access line Pending studies at discharge: None Labs on day of discharge: Labs from last 24 hours 05/08/18 05/08/18 03:28 03:28 WBC 30.8 H RBC 4.01 L Hgb 10.1 L Hct 31.3 L MCV 78.1 L MCH 25.2 L MCHC 32.3 RDW 19.7 H Plt Count 411 MPV 6.9 L Prelim Diff (Auto) Slide review pending Neut % (Auto) 95.9 H Lymph % (Auto) 1.2 L [place] % (Auto) 2.3 Eos % (Auto) 0.4 Baso % (Auto) 0.2 Neut # (Auto) 29.5 H Lymph # (Auto) 0.4 L [place] # (Auto) 0.7 Eos # (Auto) 0.1 Baso # (Auto) 0.0 WBC Differential Manual diff final Seg Neuts % (Manual) 95 H Band Neuts % (Manual) 2 Lymphocytes % (Manual) 1 L Monocytes % (Manual) 1 Myelocytes % (Man) 1 H Abs Neuts (Manual) 30.2 H Differential Comment . Platelet Estimate High H Platelet Morphology Normal Ovalocytes 1+ H Sodium 143 Potassium 3.4 L Chloride 109 H D Carbon Dioxide 23.9 Anion Gap 10 BUN 24 H Creatinine 1.59 H Estimated GFR 42 L Random Glucose 103 Calcium 7.6 L Phosphorus 3.4 Magnesium 1.7 Preliminary micro results at discharge 05/06/18 04:48 Aerobic Blood Culture - Preliminary Blood - Peripheral No growth in 2 days Anaerobic Blood Culture - Preliminary No growth in 2 days 05/06/18 04:55 Aerobic Blood Culture - Preliminary Blood - Peripheral No growth in 2 days Anaerobic Blood Culture - Preliminary No growth in 2 days - Impressions ITS Impressions Chest CTA 05/06/18 05:48 CONCLUSION: 1. Worsening airspace consolidation in both lungs, especially in the left upper lobe most characteristic of worsening infection. Also worsening bilateral pleural effusions, left greater than right. 2. No evidence for pulmonary embolus. 3. Spiculated nodules also present in both upper lobes as above suspicious for neoplasm. Chest X-Ray 05/08/18 00:00 CONCLUSION: 1. Stable tubes and lines, as above. 2. Improving bilateral interstitial and alveolar opacities. Discharge Plan - Discharge Disposition Patient Disposition: 20 - Discharge Details Date/Time: 05/08/18 16:34 - Physicians Team Attending Provider: Barney Tim Other Providers: Ras Forrester MD ; Oscar Meraz MD ; Kd Bradford MD ; Loli Ennis
[2018-05-10] MEDS ORDERED: Pharmacy Ordered Lab Info OTHER ONE (15:45)
== END 2018-05-08 18:06 | disposition expired ==
LOC: PHED 04:39 → PHEDA 06:02 → N03 08:40
PROVIDERS: ADMIT Internal Medicine Critical Care Medicine; ATTEND Internal Medicine Critical Care Medicine